=== PATIENT | male | born 1990 | race American Indian/Alaskan Native ===

== ENCOUNTER 2017-12-12 14:18 | Emergency (ER) | payer OTHER ==
[~2017-12-12] VITALS: Ht 170.2 cm; Wt 65.8 kg
[~2017-12-12 14:18] MED LIST: ALBU90OI INH; ALPR.25 PO; AMOCLA400 PO; AMOCLA500 PO; AZIT200SU PO; AZIT250 PO; CETI10 PO; CLAR250 PO; CLON.1 PO; CODACEE120 PO; CODGUAEL PO; CRUTCH4 USE; CYCL10 PO; DIPH50 PO; ERYT500 PO; HYDACE5 PO; HYDGUAL120 PO; IBUP200; IBUP600 PO; IBUP800 PO; Norco 5-325 Ta1 EACH PO; PROM25 PO; RXHYDACE PO; RXHYDGUAS PO; Ultram50 MG PO
[2017-12-12] MEDS ORDERED: CRUTCH4 XX (15:23)
[2017-12-12] MEDS ORDERED: Ultram50 MG PO (15:25)
[2017-12-12] MEDS ORDERED: IBUP800 PO (15:25)
== END 2017-12-12 15:34 | disposition home or self-care (01) ==
LOC: ER 14:18
DX: S93.401A Sprain of unspecified ligament of right ankle, initial encounter (principal); X50.9XXA Other and unspecified overexertion or strenuous movements or postures, initial encounter; Y99.0 Civilian activity done for income or pay; F17.200 Nicotine dependence, unspecified, uncomplicated
CPT/HCPCS: 29515; 73610; 73630; 99283; L1906

== ENCOUNTER 2019-02-09 09:53 | Emergency (ER) | payer OTHER ==
[~2019-02-09] VITALS: Ht 172.7 cm; Wt 63.5 kg
[~2019-02-09 09:53] MED LIST changes: +CRUTCH4 XX
[2019-02-09 10:55] LABS: Chloride (POC) 102 mmol/L (98-108); Creatinine (POC) 0.8 mg/dL (0.8-1.3); Glucose (ISTAT POC) 112 mg/dL (70-99); Potassium (POC) 4.2 mmol/L (3.5-5.5); Sodium (POC) 140 mmol/L (135-148); Total CO2 (POC) 26 mmol/L (21-32)
== END 2019-02-09 11:15 | disposition home or self-care (01) ==
LOC: ER 09:53
PROVIDERS: Physician Assistant
DX: R55 Syncope and collapse (principal); F17.200 Nicotine dependence, unspecified, uncomplicated
CPT/HCPCS: 80047; 85014; 99283

== ENCOUNTER 2019-02-18 21:58 | Emergency (ER) | payer OTHER ==
[~2019-02-18] VITALS: Ht 170.2 cm; Wt 65.8 kg
[2019-02-18] MEDS ORDERED: IBU800 MG PO (23:23)
[2019-02-18] MEDS ORDERED: HYDR1TAB94 PO (23:23)
== END 2019-02-19 00:02 | disposition home or self-care (01) ==
LOC: ER 21:58
DX: S52.121A Displaced fracture of head of right radius, initial encounter for closed fracture (principal); W19.XXXA Unspecified fall, initial encounter; F17.200 Nicotine dependence, unspecified, uncomplicated
CPT/HCPCS: 29125; 73090; 99283-25; A9270

== ENCOUNTER 2020-06-10 22:32 | Emergency (ER) | payer OTHER ==
[~2020-06-10] VITALS: Ht 172.7 cm; Wt 63.5 kg
[~2020-06-10 22:32] MED LIST changes: +HYDR1TAB94 PO; +IBU800 MG PO
== END 2020-06-10 23:59 | disposition home or self-care (01) ==
LOC: ER 22:32
DX: S61.215A Laceration without foreign body of left ring finger without damage to nail, initial encounter (principal); F17.200 Nicotine dependence, unspecified, uncomplicated; W31.9XXA Contact with unspecified machinery, initial encounter; Y92.89 Other specified places as the place of occurrence of the external cause; Y99.0 Civilian activity done for income or pay
CPT/HCPCS: 12001; 73120; 90471; 90714; 99283-25

== ENCOUNTER 2021-02-02 18:58 | Inpatient (IN) | payer OTHER ==
[~2021-02-02] VITALS: Ht 172.7 cm; Wt 63.8 kg
[2021-02-02 19:51] LABS: BASOPHILS ABSOLUTE AUTO 0.03 K/mm3 (0.00-0.23); BASOPHILS PERCENT AUTO 0 % (0-2); EOSINOPHILS ABSOLUTE AUTO 0.01 K/mm3 (0.00-0.68); EOSINOPHILS PERCENT AUTO 0 % (0-6); Hematocrit 35.1 % (37.0-53.0); Hemoglobin 12.5 g/dL (13.5-17.5); IMMATURE GRAN ABSOLUTE AUTO 0.02 K/mm3 (0.00-0.10); IMMATURE GRAN PERCENT AUTO 0 % (0-1); LYMPHOCYTES ABSOLUTE AUTO 1.24 K/mm3 (0.84-5.20); LYMPHOCYTES PERCENT AUTO 16 % (21-46); MONOCYTES ABSOLUTE AUTO 0.45 K/mm3 (0.16-1.47); MONOCYTES PERCENT AUTO 6 % (4-13); Mean Corpuscular HGB 31.5 pg (26.0-34.0); Mean Corpuscular HGB Conc 35.6 g/dL (31.5-36.5); Mean Corpuscular Volume 88 fL (80-100); Mean Platelet Volume 10.1 fL (9.1-12.4); NEUTROPHILS ABSOLUTE AUTO 5.87 K/mm3 (1.96-9.15); NEUTROPHILS PERCENT AUTO 77 % (41-73); Platelet Count 85 K/mm3 (150-400); RDW Coefficient Variation 14.5 % (11.7-14.2); RDW Standard Deviation 46.5 fL (35.1-46.3); Red Blood Cell Count 3.97 M/mm3 (4.30-5.90); White Blood Cell Count 7.62 K/mm3 (4.00-11.30)
[2021-02-02 20:14] LABS: Alanine Aminotransfer (ALT/SGP 86 U/L (12-78); Albumin/Globulin Ratio 0.9 (0.8-1.8); Alk Phos 112 U/L (50-136); Anion Gap 13 mmol/L (6-16); Aspartate Aminotrans (AST/SGOT 141 U/L (12-37); Bilirubin, Total 1.8 mg/dL (0.1-1.0); Blood Urea Nitrogen 26 mg/dL (8-24); Bun/Creatinine Ratio 53.1 (12.0-20.0); CO2, Blood 20 mmol/L (21-32); Calcium, Blood 9.1 mg/dL (8.5-10.1); Chloride, Blood 106 mmol/L (98-108); Creatinine, Blood 0.49 mg/dL (0.60-1.20); Globulin, Blood 4.6 g/dL (2.2-4.0); Glomerular Filtration Rate >60 (60-); Glucose, Blood 144 mg/dL (70-99); Sodium, Blood 139 mmol/L (136-145); Total Protein, Blood 8.6 g/dL (6.4-8.2)
[2021-02-02] MEDS ORDERED: BUPRENORPHIN-N1 EAC1 SL (20:14)
[2021-02-03 05:59] LABS: BASOPHILS ABSOLUTE AUTO 0.04 K/mm3 (0.00-0.23); BASOPHILS PERCENT AUTO 1 % (0-2); EOSINOPHILS ABSOLUTE AUTO 0.03 K/mm3 (0.00-0.68); EOSINOPHILS PERCENT AUTO 0 % (0-6); Hematocrit 29.4 % (37.0-53.0); Hemoglobin 10.3 g/dL (13.5-17.5); IMMATURE GRAN ABSOLUTE AUTO 0.02 K/mm3 (0.00-0.10); IMMATURE GRAN PERCENT AUTO 0 % (0-1); LYMPHOCYTES ABSOLUTE AUTO 2.36 K/mm3 (0.84-5.20); LYMPHOCYTES PERCENT AUTO 27 % (21-46); MONOCYTES ABSOLUTE AUTO 0.69 K/mm3 (0.16-1.47); MONOCYTES PERCENT AUTO 8 % (4-13); Mean Corpuscular HGB 31.7 pg (26.0-34.0); Mean Corpuscular Volume 91 fL (80-100); Mean Platelet Volume 10.7 fL (9.1-12.4); NEUTROPHILS PERCENT AUTO 64 % (41-73); Platelet Count 72 K/mm3 (150-400); RDW Coefficient Variation 14.7 % (11.7-14.2); RDW Standard Deviation 48.5 fL (35.1-46.3); Red Blood Cell Count 3.25 M/mm3 (4.30-5.90); White Blood Cell Count 8.64 K/mm3 (4.00-11.30)
[2021-02-03 06:18] LABS: Anion Gap 8 mmol/L (6-16); Blood Urea Nitrogen 24 mg/dL (8-24); Bun/Creatinine Ratio 34.7 (12.0-20.0); CO2, Blood 24 mmol/L (21-32); Calcium, Blood 8.1 mg/dL (8.5-10.1); Chloride, Blood 107 mmol/L (98-108); Creatinine, Blood 0.69 mg/dL (0.60-1.20); Glomerular Filtration Rate >60 (60-); Glucose, Blood 126 mg/dL (70-99); Potassium, Blood 4.1 mmol/L (3.5-5.5); Sodium, Blood 139 mmol/L (136-145)
[2021-02-03 12:01] LABS: Hemoglobin 10.1 g/dL (13.5-17.5)
--- NOTE | 2021-02-03 14:28 | NUR ---
PT HERE FROM ER VIA [facility] WITH OTHER RN Madeline. History, Chart, Medications and Allergies reviewed before start of procedure.Lungs clear T/O to Auscultation. Patient confirms NPO status and agrees with scheduled surgery. Pre-Op teaching done. Pt verbalizes understanding.
[2021-02-03 14:38] LABS: SARS-Cov-2 (COVID-19) PCR, MMC NEGATIVE (NEGATIVE)
--- NOTE | 2021-02-03 15:24 | NUR ---
02/03/21 1524 Patricio Merrill History, Chart, Medications and Allergies reviewed before start of procedure. MONITOR INTACT WITH CONTINUOUS PULSE OXIMETRY AND INTERMITTENT BP. 3-LEAD EKG REVIEWED WITH PHYSICIAN PRIOR TO START OF PROCEDURE. O2 VIA N/C INTACT THROUGHOUT SEDATION/PROCEDURE. Bite Block Placed. PATIENT DETERMINED TO BE ASA APPROPRIATE FOR PROPOFOL SEDATION PRIOR TO START OF PROCEDURE BY DR. BROWN
[2021-02-03 18:46] LABS: International Normalized Ratio 1.37; Prothrombin Time Results 14.5 Sec (9.7-11.5)
--- NOTE | 2021-02-03 18:48 | NUR ---
ADMISSION/SHIFT SUMMARY PT ARRIVED TO PCU FOLLOWING UPPER GI SCOPE WITH DR. BROWN THIS AFTERNOON. THERE WAS VARICIES (NON-BLEEDING) AND INFLAMMATION, REDNESS, IRRITATION, DIALATED VEINS AND CIRRHOSIS FOUND AT THE STOMACH AND DUODENUM WHICH IS WHAT CAUSED THE BLOODY EMESIS. PT WAS SWAPPED FROM IV PROTONIX AND THE SANDOSTATIN WAS DC'D AFTER THE SCOPE. PT STATES HIS LAST DRINK WAS 3 DAYS AGO, HE HAS BEENS STRONGLY ENCOURAGED TO QUIT AND EDUCATED ON THE DANGERS IF HE WERE TO CONTINUE DRINKING; PT GAVE VERBAL UNDERSTANDING TO BOTH THE RN AND THE DR THAT HE WAS DONE, HE DOES NOT WANT TO CONTINUE DOWN THIS ROAD. PT DOES HAVE SOME CIRRHOSIS "SPIDERS" SMALL RED SPOTS ALONG THE NECK, CLAVICAL AND CHEST WELL JAUNDICE. PT IS ALERT AND ORIENTED BUT A BIT GROGGY FROM THE PROCEDURE. PT DENIES PAIN AT THIS TIME. PT IS RESTING IN BED FINISHING HIS DINNER
[2021-02-04 04:20] LABS: BASOPHILS ABSOLUTE AUTO 0.02 K/mm3 (0.00-0.23); BASOPHILS PERCENT AUTO 0 % (0-2); EOSINOPHILS ABSOLUTE AUTO 0.15 K/mm3 (0.00-0.68); EOSINOPHILS PERCENT AUTO 2 % (0-6); Hemoglobin 9.9 g/dL (13.5-17.5); IMMATURE GRAN ABSOLUTE AUTO 0.01 K/mm3 (0.00-0.10); IMMATURE GRAN PERCENT AUTO 0 % (0-1); LYMPHOCYTES ABSOLUTE AUTO 2.42 K/mm3 (0.84-5.20); LYMPHOCYTES PERCENT AUTO 37 % (21-46); MONOCYTES ABSOLUTE AUTO 0.47 K/mm3 (0.16-1.47); MONOCYTES PERCENT AUTO 7 % (4-13); Mean Corpuscular HGB 31.8 pg (26.0-34.0); Mean Corpuscular HGB Conc 35.4 g/dL (31.5-36.5); Mean Corpuscular Volume 90 fL (80-100); Mean Platelet Volume 10.5 fL (9.1-12.4); NEUTROPHILS PERCENT AUTO 53 % (41-73); Platelet Count 65 K/mm3 (150-400); RDW Coefficient Variation 14.5 % (11.7-14.2); RDW Standard Deviation 47.1 fL (35.1-46.3); Red Blood Cell Count 3.11 M/mm3 (4.30-5.90); White Blood Cell Count 6.47 K/mm3 (4.00-11.30)
[2021-02-04 04:46] LABS: Alanine Aminotransfer (ALT/SGP 67 U/L (12-78); Albumin, Blood 3.1 g/dL (3.4-5.0); Albumin/Globulin Ratio 0.9 (0.8-1.8); Alk Phos 77 U/L (50-136); Anion Gap 5 mmol/L (6-16); Aspartate Aminotrans (AST/SGOT 126 U/L (12-37); Blood Urea Nitrogen 19 mg/dL (8-24); Bun/Creatinine Ratio 23.1 (12.0-20.0); CO2, Blood 27 mmol/L (21-32); Calcium, Blood 7.6 mg/dL (8.5-10.1); Chloride, Blood 106 mmol/L (98-108); Creatinine, Blood 0.82 mg/dL (0.60-1.20); Globulin, Blood 3.6 g/dL (2.2-4.0); Glomerular Filtration Rate >60 (60-); Glucose, Blood 96 mg/dL (70-99); Potassium, Blood 3.6 mmol/L (3.5-5.5); Sodium, Blood 138 mmol/L (136-145); Total Protein, Blood 6.7 g/dL (6.4-8.2)
--- NOTE | 2021-02-04 05:25 | NUR ---
SHIFT SUMMARY PT A&OX4. SP02>92% ON RA. TELEMETRY READS SB/SR, HR 50'S-60'S. PT C/O OF "DREAMING ABOUT BEING IN A HOSPITAL, CEASING, NOT ABLE TO HIT THE CALL LIGHT." PT STATES, "IT FEELS SO REAL BUT ITS JUST A DREAM." MEDICATED W/ LIBRIUM PER EMAR X1. PT C/O OF 5/10 ABD PAIN. MEDICATED W/ FENTANYL PER EMAR X1. PT AMBULATED W/ ASSISTANCE TO BATHROOM TO VOID THIS SHIFT. ABX INFUSED PER EMAR. CALL LIGHT IN REACH. WILL GIVE REPORT TO ONCOMING NURSE.
[2021-02-04] MEDS ORDERED: CIPR500 PO (11:34)
[2021-02-04] MEDS ORDERED: PANT40 PO (11:35)
--- NOTE | 2021-02-04 13:44 | NUR ---
NO ACUTE EVENTS THIS SHIFT, VSS. PT IS ALERT AND ORIENTED, COOPERATIVE WITH CARE AND DENIES PAIN AND NAUSEA. PATIENT PROVIDED DISCHARGE INFO REGARDING FOLLOW UP PLANS, REASONS TO RETURN TO THE HOSPITAL, AND MEDICATION INFORMATION. PATIENT VERBALIZED UNDERSTANDING. NO SIGNS OF ACUTE DISTRESS.
== END 2021-02-04 14:39 | disposition home or self-care (01) | DRG 441 ==
LOC: ER 18:58 → ERHOLD 18:59 → PCU 18:59
PROVIDERS: Internal Medicine Gastroenterology; Physician Assistant; ADMIT Family Medicine
PROC: 06L38CZ Occlusion of Esophageal Vein with Extraluminal Device, Via Natural or Artificial Opening Endoscopic (ICD-10-PCS; principal; 2021-02-04)
DX: K76.6 Portal hypertension (principal); I85.11 Secondary esophageal varices with bleeding; D62 Acute posthemorrhagic anemia; Z20.822 Contact with and (suspected) exposure to COVID-19; F10.10 Alcohol abuse, uncomplicated; K31.89 Other diseases of stomach and duodenum; D69.6 Thrombocytopenia, unspecified; B19.20 Unspecified viral hepatitis C without hepatic coma; Z98.890 Other specified postprocedural states; Z79.899 Other long term (current) drug therapy; F17.210 Nicotine dependence, cigarettes, uncomplicated; K74.60 Unspecified cirrhosis of liver
CPT/HCPCS: 36415; 74177; 80048; 80053; 82105; 83690; 85014; 85018; 85025; 85610; 86850; 86900; 86901; 96365; 96366; 96367; 96368; 96375; 96376; 99285-25; A9270; C9113; G0378; J0696; J2250; J2270; J2354; J2405; J2704; J3010; J7050; J7120; Q9967; U0004

== ENCOUNTER 2021-06-15 20:13 | Emergency (ER) | payer OTHER ==
[~2021-06-15] VITALS: Ht 167.6 cm; Wt 68.0 kg
[~2021-06-15 20:13] MED LIST changes: +BUPRENORPHIN-N1 EAC1 SL; +CIPR500 PO; +PANT40 PO
[2021-06-15 20:48] LABS: BASOPHILS ABSOLUTE AUTO 0.04 K/mm3 (0.00-0.23); BASOPHILS PERCENT AUTO 1 % (0-2); EOSINOPHILS ABSOLUTE AUTO 0.04 K/mm3 (0.00-0.68); EOSINOPHILS PERCENT AUTO 1 % (0-6); Hematocrit 45.1 % (37.0-53.0); IMMATURE GRAN ABSOLUTE AUTO 0.01 K/mm3 (0.00-0.10); IMMATURE GRAN PERCENT AUTO 0 % (0-1); LYMPHOCYTES ABSOLUTE AUTO 2.54 K/mm3 (0.84-5.20); LYMPHOCYTES PERCENT AUTO 32 % (21-46); MONOCYTES ABSOLUTE AUTO 0.65 K/mm3 (0.16-1.47); MONOCYTES PERCENT AUTO 8 % (4-13); Mean Corpuscular HGB Conc 35.5 g/dL (31.5-36.5); Mean Corpuscular Volume 79 fL (80-100); Mean Platelet Volume 9.3 fL (9.1-12.4); NEUTROPHILS ABSOLUTE AUTO 4.63 K/mm3 (1.96-9.15); NEUTROPHILS PERCENT AUTO 59 % (41-73); Platelet Count 123 K/mm3 (150-400); RDW Standard Deviation 47.7 fL (35.1-46.3); Red Blood Cell Count 5.71 M/mm3 (4.30-5.90); White Blood Cell Count 7.91 K/mm3 (4.00-11.30)
[2021-06-15] MEDS ORDERED: BUPRENORPHIN-N1 EAC5 SL (21:02)
[2021-06-15 21:12] LABS: Alanine Aminotransfer (ALT/SGP 76 U/L (12-78); Albumin, Blood 4.3 g/dL (3.4-5.0); Alk Phos 135 U/L (50-136); Anion Gap 15 mmol/L (6-16); Aspartate Aminotrans (AST/SGOT 80 U/L (12-37); Bilirubin, Total 0.3 mg/dL (0.1-1.0); Blood Urea Nitrogen 10 mg/dL (8-24); Bun/Creatinine Ratio 13.5 (12.0-20.0); CO2, Blood 22 mmol/L (21-32); Calcium, Blood 9.8 mg/dL (8.5-10.1); Chloride, Blood 109 mmol/L (98-108); Creatinine, Blood 0.74 mg/dL (0.60-1.20); Globulin, Blood 4.5 g/dL (2.2-4.0); Glomerular Filtration Rate >60 (60-); Glucose, Blood 109 mg/dL (70-99); Potassium, Blood 3.7 mmol/L (3.5-5.5); Sodium, Blood 146 mmol/L (136-145); Total Protein, Blood 8.8 g/dL (6.4-8.2)
[2021-06-15] MEDS ORDERED: CHLO25 PO (23:47)
== END 2021-06-16 00:55 | disposition home or self-care (01) ==
LOC: ER 20:13
PROVIDERS: Physician Assistant
DX: F10.239 Alcohol dependence with withdrawal, unspecified (principal); F11.23 Opioid dependence with withdrawal; F41.9 Anxiety disorder, unspecified; F17.210 Nicotine dependence, cigarettes, uncomplicated
CPT/HCPCS: 36415; 80053; 83690; 85025; 93005; 93010; 96374; 96375; 99285-25; A9270; J0572; J1885; J2405

== ENCOUNTER 2021-07-22 22:13 | Emergency (ER) | payer OTHER ==
[~2021-07-22] VITALS: Ht 170.2 cm; Wt 65.8 kg
[~2021-07-22 22:13] MED LIST changes: +BUPRENORPHIN-N1 EAC5 SL; +CHLO25 PO
[2021-07-22 23:28] LABS: Influenza A, PCR NEGATIVE (NEGATIVE); Influenza B, PCR NEGATIVE (NEGATIVE); Resp Syncytial Virus, PCR NEGATIVE (NEGATIVE); SARS-Cov-2 (COVID-19) PCR, MMC NEGATIVE (NEGATIVE)
[2021-07-23] MEDS ORDERED: Chlordiazepoxid25 MG PO (22:33)
[2021-07-23] MEDS ORDERED: CHLO25 PO (23:49)
== END 2021-07-23 00:45 | disposition home or self-care (01) ==
LOC: ER 22:13
PROVIDERS: Physician Assistant
DX: Z20.822 Contact with and (suspected) exposure to COVID-19 (principal); F17.210 Nicotine dependence, cigarettes, uncomplicated
CPT/HCPCS: 0241U; 99283

== ENCOUNTER 2021-07-23 22:20 | Emergency (ER) | payer OTHER ==
[~2021-07-23] VITALS: Ht 170.2 cm; Wt 63.5 kg
[2021-07-23] MEDS ORDERED: Chlordiazepoxid25 MG PO (22:33)
[2021-07-23 22:46] LABS: BASOPHILS ABSOLUTE AUTO 0.06 K/mm3 (0.00-0.23); BASOPHILS PERCENT AUTO 1 % (0-2); EOSINOPHILS ABSOLUTE AUTO 0.19 K/mm3 (0.00-0.68); EOSINOPHILS PERCENT AUTO 2 % (0-6); Hematocrit 38.7 % (37.0-53.0); Hemoglobin 13.1 g/dL (13.5-17.5); IMMATURE GRAN ABSOLUTE AUTO 0.03 K/mm3 (0.00-0.10); IMMATURE GRAN PERCENT AUTO 0 % (0-1); LYMPHOCYTES ABSOLUTE AUTO 4.02 K/mm3 (0.84-5.20); LYMPHOCYTES PERCENT AUTO 45 % (21-46); MONOCYTES ABSOLUTE AUTO 0.85 K/mm3 (0.16-1.47); MONOCYTES PERCENT AUTO 10 % (4-13); Mean Corpuscular HGB 27.9 pg (26.0-34.0); Mean Corpuscular HGB Conc 33.9 g/dL (31.5-36.5); Mean Corpuscular Volume 83 fL (80-100); Mean Platelet Volume 9.7 fL (9.1-12.4); NEUTROPHILS PERCENT AUTO 43 % (41-73); Platelet Count 181 K/mm3 (150-400); RDW Coefficient Variation 16.8 % (11.7-14.2); RDW Standard Deviation 50.4 fL (35.1-46.3); Red Blood Cell Count 4.69 M/mm3 (4.30-5.90); White Blood Cell Count 8.95 K/mm3 (4.00-11.30)
[2021-07-23 23:05] LABS: Alanine Aminotransfer (ALT/SGP 142 U/L (12-78); Albumin, Blood 4.1 g/dL (3.4-5.0); Albumin/Globulin Ratio 0.9 (0.8-1.8); Alk Phos 165 U/L (50-136); Anion Gap 9 mmol/L (6-16); Aspartate Aminotrans (AST/SGOT 210 U/L (12-37); Bilirubin, Total 0.6 mg/dL (0.1-1.0); Blood Urea Nitrogen 10 mg/dL (8-24); Bun/Creatinine Ratio 14.8 (12.0-20.0); CO2, Blood 24 mmol/L (21-32); Calcium, Blood 8.4 mg/dL (8.5-10.1); Chloride, Blood 111 mmol/L (98-108); Creatinine, Blood 0.68 mg/dL (0.60-1.20); Globulin, Blood 4.4 g/dL (2.2-4.0); Glomerular Filtration Rate >60 (60-); Glucose, Blood 116 mg/dL (70-99); Potassium, Blood 3.6 mmol/L (3.5-5.5); Sodium, Blood 144 mmol/L (136-145); Total Protein, Blood 8.5 g/dL (6.4-8.2); Troponin I <0.015 ng/mL (0.000-0.040)
[2021-07-23] MEDS ORDERED: CHLO25 PO (23:49)
== END 2021-07-24 00:34 | disposition home or self-care (01) ==
LOC: ER 22:20
PROVIDERS: Student in an Organized Health Care Education/Training Program
DX: F41.9 Anxiety disorder, unspecified (principal); M25.511 Pain in right shoulder; F10.10 Alcohol abuse, uncomplicated; F17.210 Nicotine dependence, cigarettes, uncomplicated
CPT/HCPCS: 71045; 73030; 80053; 84484; 85025; 93005; 93010; 99285-25; A9270

== ENCOUNTER 2021-08-16 09:50 | Emergency (ER) | payer OTHER ==
[~2021-08-16] VITALS: Ht 170.2 cm; Wt 66.2 kg
[~2021-08-16 09:50] MED LIST changes: +CEPH500 PO; +Chlordiazepoxid25 MG PO
== END 2021-08-16 11:30 | disposition home or self-care (01) ==
LOC: ER 09:50
DX: S61.211D Laceration without foreign body of left index finger without damage to nail, subsequent encounter (principal); F17.210 Nicotine dependence, cigarettes, uncomplicated; Z79.2 Long term (current) use of antibiotics; Z79.899 Other long term (current) drug therapy
CPT/HCPCS: 99282

== ENCOUNTER 2021-09-18 01:32 | Emergency (ER) | payer OTHER ==
[~2021-09-18] VITALS: Ht 170.2 cm; Wt 63.0 kg
[2021-09-18] MEDS ORDERED: BUPRENORPHINE HC8 MG SL (01:54)
[2021-12-30] MEDS ORDERED: ACAMPROSATE CA333 MG PO (23:47)
[2021-12-30] MEDS ORDERED: GABA100 PO (23:48)
== END 2021-09-18 03:50 | disposition home or self-care (01) ==
LOC: ER 01:32
DX: F41.9 Anxiety disorder, unspecified (principal); F17.210 Nicotine dependence, cigarettes, uncomplicated
CPT/HCPCS: 93005; 93010; 99284-25

== ENCOUNTER 2021-12-25 22:34 | Emergency (ER) | payer OTHER ==
[~2021-12-25] VITALS: Ht 167.6 cm; Wt 59.0 kg
[~2021-12-25 22:34] MED LIST changes: +BUPRENORPHINE HC8 MG SL
== END 2021-12-26 01:21 | disposition home or self-care (01) ==
LOC: ER 22:34
DX: S60.221A Contusion of right hand, initial encounter (principal); F17.210 Nicotine dependence, cigarettes, uncomplicated; W23.0XXA Caught, crushed, jammed, or pinched between moving objects, initial encounter
CPT/HCPCS: 73130; A9270

== ENCOUNTER 2022-02-26 08:44 | Emergency (ER) | payer OTHER ==
[~2022-02-26] VITALS: Ht 170.2 cm; Wt 65.8 kg
[~2022-02-26 08:44] MED LIST changes: +ACAMPROSATE CA333 MG PO; +GABA100 PO
[2022-02-26 09:49] LABS: BASOPHILS ABSOLUTE AUTO 0.08 K/mm3 (0.00-0.23); BASOPHILS PERCENT AUTO 1 % (0-2); EOSINOPHILS PERCENT AUTO 2 % (0-6); Hematocrit 34.5 % (37.0-53.0); IMMATURE GRAN ABSOLUTE AUTO 0.02 K/mm3 (0.00-0.10); IMMATURE GRAN PERCENT AUTO 0 % (0-1); LYMPHOCYTES ABSOLUTE AUTO 3.44 K/mm3 (0.84-5.20); LYMPHOCYTES PERCENT AUTO 39 % (21-46); MONOCYTES PERCENT AUTO 8 % (4-13); Mean Corpuscular HGB 30.2 pg (26.0-34.0); Mean Corpuscular HGB Conc 34.8 g/dL (31.5-36.5); Mean Corpuscular Volume 87 fL (80-100); Mean Platelet Volume 9.8 fL (9.1-12.4); NEUTROPHILS ABSOLUTE AUTO 4.29 K/mm3 (1.96-9.15); NEUTROPHILS PERCENT AUTO 49 % (41-73); Platelet Count 114 K/mm3 (150-400); RDW Coefficient Variation 15.6 % (11.7-14.2); RDW Standard Deviation 49.3 fL (35.1-46.3); Red Blood Cell Count 3.98 M/mm3 (4.30-5.90); White Blood Cell Count 8.73 K/mm3 (4.00-11.30)
[2022-02-26 09:59] LABS: Albumin, Blood 3.7 g/dL (3.4-5.0); Albumin/Globulin Ratio 0.9 (0.8-1.8); Bun/Creatinine Ratio 39.3 (12.0-20.0); Calcium, Blood 8.4 mg/dL (8.5-10.1); Creatinine, Blood 0.66 mg/dL (0.60-1.20); Globulin, Blood 4.3 g/dL (2.2-4.0); Potassium, Blood 3.3 mmol/L (3.5-5.5)
[2022-02-26 10:50] LABS: International Normalized Ratio 1.37; Prothrombin Time Results 14.1 Sec (9.7-11.5)
[2022-02-26 15:04] LABS: Hematocrit 29.1 % (37.0-53.0); Hemoglobin 10.2 g/dL (13.5-17.5)
== END 2022-02-26 16:43 | disposition home or self-care (01) ==
LOC: ER 08:44
PROVIDERS: Emergency Medicine
DX: K92.2 Gastrointestinal hemorrhage, unspecified (principal); F17.210 Nicotine dependence, cigarettes, uncomplicated
CPT/HCPCS: 80053; 83690; 85014; 85018; 85025; 85610; 85730; 86850; 86900; 86901; C9113; G0480; J0696; J1170; J2354; J2405; J2550; J7030; J7050

== ENCOUNTER 2022-05-03 22:12 | Emergency (ER) | payer OTHER ==
[~2022-05-03] VITALS: Ht 170.2 cm; Wt 63.0 kg
== END 2022-05-04 00:15 | disposition home or self-care (01) ==
LOC: ER 22:12
DX: M79.641 Pain in right hand (principal); M79.642 Pain in left hand; F17.210 Nicotine dependence, cigarettes, uncomplicated; Z79.899 Other long term (current) drug therapy; W22.8XXA Striking against or struck by other objects, initial encounter
CPT/HCPCS: 73120

== ENCOUNTER 2022-05-12 15:17 | Emergency (ER) | payer OTHER ==
[~2022-05-12] VITALS: Ht 170.2 cm; Wt 62.6 kg
[2022-05-12 16:15] LABS: BASOPHILS ABSOLUTE AUTO 0.05 K/mm3 (0.00-0.23); BASOPHILS PERCENT AUTO 1 % (0-2); EOSINOPHILS PERCENT AUTO 1 % (0-6); Hematocrit 21.8 % (37.0-53.0); Hemoglobin 6.7 g/dL (13.5-17.5); IMMATURE GRAN ABSOLUTE AUTO 0.09 K/mm3 (0.00-0.10); IMMATURE GRAN PERCENT AUTO 1 % (0-1); LYMPHOCYTES ABSOLUTE AUTO 1.56 K/mm3 (0.84-5.20); LYMPHOCYTES PERCENT AUTO 23 % (21-46); MONOCYTES ABSOLUTE AUTO 0.81 K/mm3 (0.16-1.47); MONOCYTES PERCENT AUTO 12 % (4-13); Mean Corpuscular HGB 21.1 pg (26.0-34.0); Mean Corpuscular HGB Conc 30.7 g/dL (31.5-36.5); Mean Corpuscular Volume 69 fL (80-100); NEUTROPHILS PERCENT AUTO 62 % (41-73); NRBC ABSOLUTE 0.02 K/mm3 (0.00-0.02); NRBC Auto 0.3 /100 WBC (0.0-0.2); Platelet Count 102 K/mm3 (150-400); RDW Standard Deviation 63.2 fL (35.1-46.3); Red Blood Cell Count 3.18 M/mm3 (4.30-5.90); White Blood Cell Count 6.91 K/mm3 (4.00-11.30)
[2022-05-12 16:34] LABS: Albumin, Blood 3.5 g/dL (3.4-5.0); Albumin/Globulin Ratio 0.7 (0.8-1.8); Bun/Creatinine Ratio 48.5 (12.0-20.0); Creatinine, Blood 0.41 mg/dL (0.60-1.20); Globulin, Blood 4.7 g/dL (2.2-4.0); Potassium, Blood 3.8 mmol/L (3.5-5.5); Total Protein, Blood 8.2 g/dL (6.4-8.2)
[2022-05-12 19:22] LABS: Influenza A, PCR NEGATIVE (NEGATIVE); Influenza B, PCR NEGATIVE (NEGATIVE); Resp Syncytial Virus, PCR NEGATIVE (NEGATIVE); SARS-Cov-2 (COVID-19) PCR, MMC NEGATIVE (NEGATIVE)
[2022-05-12 20:24] LABS: International Normalized Ratio 1.43; Prothrombin Time Results 14.7 Sec (9.7-11.5)
== END 2022-05-12 22:19 | disposition short-term general hospital (02) ==
LOC: ER 15:17
PROVIDERS: Physician Assistant Medical; Student in an Organized Health Care Education/Training Program
DX: K92.0 Hematemesis (principal); D64.9 Anemia, unspecified; F17.210 Nicotine dependence, cigarettes, uncomplicated; Z20.822 Contact with and (suspected) exposure to COVID-19
CPT/HCPCS: 0241U; 36415; 74022; 74177; 80053; 83690; 84484; 85025; 85610; 85730; 86850; 86900; 86901; 86923; 93005; 93010; C9113; J0696; J1170; J2060; J2354; J2405; J2550; J7030; J7050; P9016; Q9967

== ENCOUNTER 2022-07-01 01:49 | Inpatient (IN) | payer OTHER ==
[~2022-07-01] VITALS: Ht 170.2 cm; Wt 60.6 kg
[2022-07-01] MEDS ORDERED: BUPRENORPHIN-N1 EAC1 SL (02:04)
[2022-07-01 02:31] LABS: BASOPHILS ABSOLUTE AUTO 0.06 K/mm3 (0.00-0.23); BASOPHILS PERCENT AUTO 1 % (0-2); EOSINOPHILS ABSOLUTE AUTO 0.08 K/mm3 (0.00-0.68); EOSINOPHILS PERCENT AUTO 1 % (0-6); Hematocrit 26.1 % (37.0-53.0); Hemoglobin 8.9 g/dL (13.5-17.5); IMMATURE GRAN ABSOLUTE AUTO 0.02 K/mm3 (0.00-0.10); IMMATURE GRAN PERCENT AUTO 0 % (0-1); LYMPHOCYTES ABSOLUTE AUTO 2.56 K/mm3 (0.84-5.20); LYMPHOCYTES PERCENT AUTO 32 % (21-46); MONOCYTES ABSOLUTE AUTO 0.73 K/mm3 (0.16-1.47); MONOCYTES PERCENT AUTO 9 % (4-13); Mean Corpuscular HGB 24.1 pg (26.0-34.0); Mean Corpuscular HGB Conc 34.1 g/dL (31.5-36.5); Mean Corpuscular Volume 71 fL (80-100); Mean Platelet Volume 9.2 fL (9.1-12.4); NEUTROPHILS ABSOLUTE AUTO 4.66 K/mm3 (1.96-9.15); NEUTROPHILS PERCENT AUTO 58 % (41-73); Platelet Count 145 K/mm3 (150-400); RDW Coefficient Variation 18.6 % (11.7-14.2); RDW Standard Deviation 47.2 fL (35.1-46.3); White Blood Cell Count 8.11 K/mm3 (4.00-11.30)
[2022-07-01 02:43] LABS: Albumin, Blood 2.9 g/dL (3.4-5.0); Albumin/Globulin Ratio 0.6 (0.8-1.8); Bilirubin, Total 0.8 mg/dL (0.1-1.0); Bun/Creatinine Ratio 24.4 (12.0-20.0); Calcium, Blood 8.5 mg/dL (8.5-10.1); Creatinine, Blood 0.57 mg/dL (0.60-1.20); Globulin, Blood 4.7 g/dL (2.2-4.0); Potassium, Blood 3.8 mmol/L (3.5-5.5); Total Protein, Blood 7.6 g/dL (6.4-8.2)
[2022-07-01 03:36] LABS: International Normalized Ratio 1.4; Prothrombin Time Results 14.4 Sec (9.7-11.5)
[2022-07-01 07:07] LABS: Influenza A, PCR NEGATIVE (NEGATIVE); Influenza B, PCR NEGATIVE (NEGATIVE); Resp Syncytial Virus, PCR NEGATIVE (NEGATIVE); SARS-Cov-2 (COVID-19) PCR, MMC NEGATIVE (NEGATIVE)
[2022-07-01 07:20] LABS: Hematocrit 21.6 % (37.0-53.0); Hemoglobin 7.1 g/dL (13.5-17.5); Mean Corpuscular HGB 23.7 pg (26.0-34.0); Mean Corpuscular HGB Conc 32.9 g/dL (31.5-36.5); Mean Corpuscular Volume 72 fL (80-100); Mean Platelet Volume 9.1 fL (9.1-12.4); Platelet Count 101 K/mm3 (150-400); RDW Coefficient Variation 18.8 % (11.7-14.2); RDW Standard Deviation 48.8 fL (35.1-46.3); Red Blood Cell Count 2.99 M/mm3 (4.30-5.90); White Blood Cell Count 6.04 K/mm3 (4.00-11.30)
[2022-07-01 10:56] LABS: Hematocrit 21.7 % (37.0-53.0); Hemoglobin 6.9 g/dL (13.5-17.5)
--- NOTE | 2022-07-01 10:57 | NUR ---
PT ARRIVED TO ICU BED 13, DENIES ANY ABDOMINAL PAIN, ILLICITS NAUSEA. GIRLFRIEND HAS BROUGHT IN A "TO GO" BAG TO GO WITH HIM WHEN TRANSPORTED TO OUT OF [facility]. AWAITING TRANSPORTATION ARRANGEMENT FOR CLEARING WEATHER. PT DRESSED IN JEANS AND SOCKS, SHOES REMOVED AND AT BEDSIDE. PT'S VITAL SIGNS STABLE, AWAIT CURRENT LAB RESULTS FOR FURTHER ORDERS. PLAN TO TRANSFUSE IF LEVEL LESS THAN 7 ON HGB. GIRLFRIEND AT BEDSIDE.
--- NOTE | 2022-07-01 11:45 | NUR ---
TRANSPORTATION UPDATE SPOKE WITH REACH DISPATCH - CURRENT PLAN IS TO RE-CHECK WEATHER AROUND 1500 TO SEE IF THERE IS IMPROVEMENT AND FLIGHT CAPABILITY.
--- NOTE | 2022-07-01 12:59 | NUR ---
PT'S LAB RETURNED LOW, CALL TO , ORDERS RECEIVED TO TRANSFUSE ONE UNIT OF PRBC'S, TRANSFUSING NOW, TOLERATING WELL. GIRLFRIEND ASSISTING IN REMOVING HIS PANTS FOR PLACEMENT OF SCD'S.
--- NOTE | 2022-07-01 13:45 | NUR ---
PT'S MOM IS HERE, SHE IS QUESTIONING ONCE STACIA GETS DISCHARGED FROM THE HOSPITAL IN [place], WHAT HAPPENS NEXT. SPOKE WITH THE CHARGE NURSE, VINCENT ALLEN, SHE RECOMMENDS THAT SHE CALL HIS HEALTH PLAN TO SEE WHAT OPTIONS THEY HAVE. SHE STATES THAT IT BEING GARRETT BUTTS THERE IS NO ONE ANSWERING THE PHONE, LISTENING.
--- NOTE | 2022-07-01 14:05 | NUR ---
PT'S MOM COMES OUT TO SAY THAT "HE SAYS HE CAN'T BREATHE". STACIA SAYS HIS THROAT IS "SWOLLEN" AND HE FEELS LIKE HE CAN'T BREATHE, ATTEMPTS TO ASSESS THE BACK OF THE THROAT, PT WITH EASY GAG, NO EVIDENCE OF SWELLING OR BLEEDING NOTED. CALLED FOR ORDERS FOR ADDITIONAL NAUSEA MEDICATION, ORDERS RECEIVED. WILL MEDICATE.
--- NOTE | 2022-07-01 16:49 | NUR ---
TRANSPORTATION UPDATE: REACH STILL UNABLE TO FLY. PLAN TO RE-ASSESS WEATHER AT 1900. [facility] READING SPECIALIST, YARON, NOTIFIED OF UPDATE.
[2022-07-01 16:59] LABS: Hematocrit 22.3 % (37.0-53.0); Hemoglobin 7.5 g/dL (13.5-17.5)
--- NOTE | 2022-07-01 17:38 | NUR ---
PT'S LABS CAME BACK IMPROVED ON HGB. PT'S MOTHER AT BEDSIDE. PT HAS BEEN SLEEPING THE ENTIRE SHIFT. HE CONTINUES ON PROTONIX AND OCTREOTIDE. PIV X 3, ONE UNIT PRBC'S GIVEN. EXPECT REPORT FROM TRANSPORT AROUND 1900 TO KNOW IF PT CAN BE TAKEN TO [place]. FAMILY AWARE. WILL CONTINUE TO MONITOR AND TREAT.
--- NOTE | 2022-07-01 17:58 | NUR ---
TRANSPORT UPDATE: REACH REMAINS UNABLE TO FLY DUE TO WEATHER - WILL REASSESS AT 2100. CONTACT MADE WITH [facility] WHO IS ASSESSING OPTIONS FOR TRANSFER. [facility] UPDATED.
--- NOTE | 2022-07-01 17:59 | NUR ---
UPDATE FROM TRANSPORT: THEY WILL REEVALUATE AT 2100, UNSURE IF THEY CAN FLY RIGHT NOW. VP [employer] REACHED OUT TO [facility] TO SEE IF THERE MAY BE OTHER OPTIONS. WILL UPDATE FAMILY.
--- NOTE | 2022-07-01 18:55 | NUR ---
PT'S FAMILY ANXIOUS ABOUT NOT HAVING ANY GI COVERAGE. EXPLAINED THE SITUATION AGAIN TO THEM. ENCOURAGING PATIENT TO REST AND TAKE A/N MEDS. PRONTONIX AND OCTREOTIDE INFUSING PER ORDERS. PT SLEEPING. NO FURTHER CHANGES.
--- NOTE | 2022-07-01 19:26 | NUR ---
ASSUMED CARE OF PT AT 1900. REPORT RECEIVED AT BEDSIDE. PT PRESENTS IN BED. NO S/S ACTIVE BLEEDING AT THIS TIME. PT MAKES EYE CONTACT BUT DOES NOT VERBALIZE AT THIS TIME. SOMEWHAT WITHDRAWN. WILL REVIEW CHART AND PLAN OF CARE FOR THIS PT. WILL MONITOR TRANSPORTATION.
--- NOTE | 2022-07-01 21:44 | NUR ---
TRANSPORT UPDATE: CALL TO REACH FOR UPDATE. FLIGHT DELAYS CONTINUE. NEXT CONSIDERATION AND UPDATE AT 0900 07-02-2022.
--- NOTE | 2022-07-01 22:11 | NUR ---
TRANSPORT UPDAT: [facility] UNABLE TO TRANSPORT PT THIS NIGHT. NEXT UPDATE IN MORNING.
[2022-07-02 04:37] LABS: BASOPHILS ABSOLUTE AUTO 0.03 K/mm3 (0.00-0.23); BASOPHILS PERCENT AUTO 1 % (0-2); EOSINOPHILS ABSOLUTE AUTO 0.13 K/mm3 (0.00-0.68); EOSINOPHILS PERCENT AUTO 3 % (0-6); Hematocrit 21.4 % (37.0-53.0); Hemoglobin 7.3 g/dL (13.5-17.5); IMMATURE GRAN ABSOLUTE AUTO 0.02 K/mm3 (0.00-0.10); IMMATURE GRAN PERCENT AUTO 0 % (0-1); LYMPHOCYTES ABSOLUTE AUTO 1.86 K/mm3 (0.84-5.20); LYMPHOCYTES PERCENT AUTO 36 % (21-46); MONOCYTES ABSOLUTE AUTO 0.47 K/mm3 (0.16-1.47); MONOCYTES PERCENT AUTO 9 % (4-13); Mean Corpuscular HGB 25.2 pg (26.0-34.0); Mean Corpuscular HGB Conc 34.1 g/dL (31.5-36.5); Mean Corpuscular Volume 74 fL (80-100); Mean Platelet Volume 8.9 fL (9.1-12.4); NEUTROPHILS ABSOLUTE AUTO 2.61 K/mm3 (1.96-9.15); NEUTROPHILS PERCENT AUTO 51 % (41-73); Platelet Count 78 K/mm3 (150-400); RDW Coefficient Variation 18.8 % (11.7-14.2); RDW Standard Deviation 50.4 fL (35.1-46.3); White Blood Cell Count 5.12 K/mm3 (4.00-11.30)
[2022-07-02 04:54] LABS: Albumin, Blood 2.4 g/dL (3.4-5.0); Albumin/Globulin Ratio 0.6 (0.8-1.8); Bilirubin, Total 1.4 mg/dL (0.1-1.0); Bun/Creatinine Ratio 22.8 (12.0-20.0); Calcium, Blood 7.8 mg/dL (8.5-10.1); Creatinine, Blood 0.75 mg/dL (0.60-1.20); Globulin, Blood 3.9 g/dL (2.2-4.0); Potassium, Blood 3.7 mmol/L (3.5-5.5); Total Protein, Blood 6.3 g/dL (6.4-8.2)
--- NOTE | 2022-07-02 06:51 | NUR ---
PT HAS BEEN UP TO TOILET SEVERAL TIMES THIS NIGHT. ONLY HAD BLOOD STOOL ONCE EARLIER IN NIGHT. PT HAD SOME DIZZINESS ON FIRST TIME TO COMMODE. SECOND TIME PT DENIED VERTIGO. CALL RECEIVED FROM [employer] WHICH INDICATED PT WAS NUMBER 2 ON FLIGHT WAIT. WILL RECEIVE UPDATE AFTER [employer]'S "CHANGE OF SHIFT". REPORT GIVEN TO ONCOMING BONNIE.
[2022-07-02 07:56] LABS: Hematocrit 21.5 % (37.0-53.0); Hemoglobin 7.2 g/dL (13.5-17.5)
--- NOTE | 2022-07-02 09:57 | NUR ---
STACIA IS MORE ENGAGING THIS AM, HE IS FEELING SLIGHTLY "CRAMPY" ALTHOUGH IMPROVED FROM YESTERDAY, AGREED TO ALLOW CLEAR LIQUIDS FOR NOW, ICE CHIPS GIVEN WITH GOOD RESULTS. HE HAD A VISIT FROM HIS SON THIS AM, ALSO MOM AND GIRLFRIEND ARE HERE AT BEDSIDE.
--- NOTE | 2022-07-02 10:45 | NUR ---
UPDATE: TRANSPORT CREW SAYS THEY CAN FLY OUT OF [place], MAKING ARRANGEMENTS TO GET PT TO [place] TO FLY OUT. FAMILY UPDATED. PT ABLE TO STAND AND MOBILIZE WITHOUT ASSISTANCE, SAYS HE FEELS LESS WEAK AND DIZZY. MOM STATES HE "LOOKS SO MUCH BETTER". FLOOR COVERER DOUBLING CHECKING PAPERWORK IS UP TO DATE FOR TRANS- [place].
--- NOTE | 2022-07-02 11:39 | NUR ---
AMBULANCE GROUND CREW HERE TO TAKE PATIENT TO [place] FOR [facility] TO [place]. MOM AND SISTER WERE IN ATTENDANCE WALKING OUT TO AMBULANCE. VSS, PT DENIES ANY WEAKNESS OR LIGHTHEADEDNESS. NO ACTIVE BLEEDING AT THIS TIME.
--- NOTE | 2022-07-02 11:59 | NUR ---
THIS NURSE SPOKE WITH MIKE,MACHINE PACKAGE SEALER WITH GROUND. SPOKE WITH AZALEA, HAND HIDE STRETCHER FOR [facility], REPORT TO [facility] NURSE VIA PHONE, ALSO PHONE REPORT TO BONNIE ALCARAZ IN [facility] @ [facility] IN [place]. MOM AND GF GIVEN PHONE NUMBER FOR HOSPITAL.
== END 2022-07-02 11:42 | disposition short-term general hospital (02) | DRG 432 ==
LOC: ER 01:49 → ICUW 08:31
PROVIDERS: Family Medicine; Nurse Practitioner Acute Care; Student in an Organized Health Care Education/Training Program; ADMIT Internal Medicine
PROC: 30233N1 Transfusion of Nonautologous Red Blood Cells into Peripheral Vein, Percutaneous Approach (ICD-10-PCS; principal; 2022-07-01)
DX: K70.30 Alcoholic cirrhosis of liver without ascites (principal); I85.11 Secondary esophageal varices with bleeding; D62 Acute posthemorrhagic anemia; K76.6 Portal hypertension; F10.10 Alcohol abuse, uncomplicated; B19.20 Unspecified viral hepatitis C without hepatic coma; F11.10 Opioid abuse, uncomplicated; F17.210 Nicotine dependence, cigarettes, uncomplicated; Z20.822 Contact with and (suspected) exposure to COVID-19; Z79.899 Other long term (current) drug therapy; Z98.890 Other specified postprocedural states
CPT/HCPCS: 0241U; 36415; 36430; 80053; 82140; 85014; 85018; 85025; 85027; 85610; 85730; 86850; 86900; 86901; 86923; 93005; 93010; 96365; 96366; 96368; 96375; 96376; 99285-25; C9113; J0696; J0780; J2354; J2405; J2550; J2765; J7030; J7050; P9016

== ENCOUNTER 2022-07-24 12:15 | Inpatient (IN) | payer OTHER ==
[~2022-07-24] VITALS: Ht 170.2 cm; Wt 66.3 kg
[2022-07-24 12:57] LABS: BASOPHILS ABSOLUTE AUTO 0.07 K/mm3 (0.00-0.23); BASOPHILS PERCENT AUTO 1 % (0-2); EOSINOPHILS ABSOLUTE AUTO 0.19 K/mm3 (0.00-0.68); EOSINOPHILS PERCENT AUTO 2 % (0-6); Hematocrit 20.4 % (37.0-53.0); Hemoglobin 6.4 g/dL (13.5-17.5); IMMATURE GRAN ABSOLUTE AUTO 0.03 K/mm3 (0.00-0.10); IMMATURE GRAN PERCENT AUTO 0 % (0-1); LYMPHOCYTES ABSOLUTE AUTO 3.21 K/mm3 (0.84-5.20); LYMPHOCYTES PERCENT AUTO 40 % (21-46); MONOCYTES ABSOLUTE AUTO 0.73 K/mm3 (0.16-1.47); MONOCYTES PERCENT AUTO 9 % (4-13); Mean Corpuscular HGB 22.6 pg (26.0-34.0); Mean Corpuscular HGB Conc 31.4 g/dL (31.5-36.5); Mean Corpuscular Volume 72 fL (80-100); Mean Platelet Volume 9.1 fL (9.1-12.4); NEUTROPHILS ABSOLUTE AUTO 3.85 K/mm3 (1.96-9.15); NEUTROPHILS PERCENT AUTO 48 % (41-73); Platelet Count 158 K/mm3 (150-400); RDW Coefficient Variation 19.2 % (11.7-14.2); RDW Standard Deviation 49.3 fL (35.1-46.3); Red Blood Cell Count 2.83 M/mm3 (4.30-5.90); White Blood Cell Count 8.08 K/mm3 (4.00-11.30)
[2022-07-24 13:13] LABS: Albumin, Blood 2.8 g/dL (3.4-5.0); Albumin/Globulin Ratio 0.7 (0.8-1.8); Bilirubin, Total 0.7 mg/dL (0.1-1.0); Bun/Creatinine Ratio 32.2 (12.0-20.0); Calcium, Blood 7.7 mg/dL (8.5-10.1); Creatinine, Blood 0.56 mg/dL (0.60-1.20); Globulin, Blood 3.9 g/dL (2.2-4.0); Potassium, Blood 3.7 mmol/L (3.5-5.5); Total Protein, Blood 6.7 g/dL (6.4-8.2)
[2022-07-24] MEDS ORDERED: Inderal40 MG PO (15:20)
[2022-07-24] MEDS ORDERED: PANTOPRAZOLE SO40 M2 PO (15:20)
[2022-07-24] MEDS ORDERED: PROM25 (21:11)
--- NOTE | 2022-07-24 21:40 | NUR ---
ASSUMED CARE PT IS A&O X4; DROWSY. SPO2 >92% ON RA; MAP >65. PT STATES ABDOMINAL PAIN IS 6/10; GNAWING. SECOND UNIT OF PRBC INFUSING. OCTREOTIDE/PROTONIX INFUSING PER ORDER.
--- NOTE | 2022-07-24 23:07 | NUR ---
UPDATE SECOND UNIT OF PRBC INFUSED. PT AT REST W/ STABLE VITAL SIGNS.
[2022-07-24 23:23] LABS: Hematocrit 23.1 % (37.0-53.0); Hemoglobin 7.7 g/dL (13.5-17.5)
[2022-07-25 04:02] LABS: BASOPHILS ABSOLUTE AUTO 0.04 K/mm3 (0.00-0.23); BASOPHILS PERCENT AUTO 1 % (0-2); EOSINOPHILS ABSOLUTE AUTO 0.09 K/mm3 (0.00-0.68); EOSINOPHILS PERCENT AUTO 1 % (0-6); Hematocrit 21.3 % (37.0-53.0); Hemoglobin 7.2 g/dL (13.5-17.5); IMMATURE GRAN ABSOLUTE AUTO 0.02 K/mm3 (0.00-0.10); IMMATURE GRAN PERCENT AUTO 0 % (0-1); LYMPHOCYTES ABSOLUTE AUTO 2.76 K/mm3 (0.84-5.20); LYMPHOCYTES PERCENT AUTO 37 % (21-46); MONOCYTES ABSOLUTE AUTO 0.83 K/mm3 (0.16-1.47); MONOCYTES PERCENT AUTO 11 % (4-13); Mean Corpuscular HGB 24.9 pg (26.0-34.0); Mean Corpuscular HGB Conc 33.8 g/dL (31.5-36.5); Mean Corpuscular Volume 74 fL (80-100); Mean Platelet Volume 9.6 fL (9.1-12.4); NEUTROPHILS ABSOLUTE AUTO 3.81 K/mm3 (1.96-9.15); NEUTROPHILS PERCENT AUTO 50 % (41-73); Platelet Count 100 K/mm3 (150-400); RDW Coefficient Variation 19.4 % (11.7-14.2); RDW Standard Deviation 52.1 fL (35.1-46.3); Red Blood Cell Count 2.89 M/mm3 (4.30-5.90); White Blood Cell Count 7.55 K/mm3 (4.00-11.30)
[2022-07-25 04:25] LABS: Albumin, Blood 2.5 g/dL (3.4-5.0); Albumin/Globulin Ratio 0.7 (0.8-1.8); Bilirubin, Total 0.9 mg/dL (0.1-1.0); Bun/Creatinine Ratio 41.7 (12.0-20.0); Creatinine, Blood 0.67 mg/dL (0.60-1.20); Globulin, Blood 3.5 g/dL (2.2-4.0); Potassium, Blood 4.1 mmol/L (3.5-5.5)
--- NOTE | 2022-07-25 04:54 | NUR ---
SHIFT SUMMARY PT IS A&O X4; LESS DROWSY THAN INITIAL ASSUMPTION OF CARE. SPO2 >92% ON RA; MAP >65. 2 UNITS PRBC INFUSED W/ SECOND ONE STARTED IN ED AND FINISHED IN THE ICU. NO BOWEL MOVEMENTS THIS SHIFT. ONE EPISODE OF NAUSEA AFTER GIVING FENTANYL PER ORDER FOR PT'S PAIN. NO OTHER ACUTE EPISODES THIS SHIFT. OCTREOTIDE AND PROTONIX INFUSING PER ORDER.
--- NOTE | 2022-07-25 07:13 | NUR ---
Received report from Noc RN. Patient is resting and responds to verbal stimuli. He is alert and oriented and is able to communicate his needs. He moes all extremities. He is on RA and sats 95%. He has 20ga IV to LAC and is flushed and SL's. he has 20ga to RW and is infusing Octreotide at 50 mcg/hr and Protonix at 8mg/hr. Urinal within reach of patient. Awaiting consult from Dr Harris. Patient remains NPO. Call light within reach.
--- NOTE | 2022-07-25 09:30 | NUR ---
Patient has been resting with family at bedside. He was up to bedside cammode with minimal assist. He had 500 mls of yellow urine. He has Octrotide and protonix infusing, no changes. MAEW. Remains on RA and sats >90%.
--- NOTE | 2022-07-25 12:00 | NUR ---
Patient continues to rest and denies any needs. Family at bedside. Family awaiting Dr Harris still. VSS. He is independent with positioning in bed. He remains on RA and no changes to gtt's.
--- NOTE | 2022-07-25 14:15 | NUR ---
Paient awake and up to bathroom with minimal assist. He stated he has 5/10 abdominal pain and medicated per SEP. Day surgery will be here soon to start scope. He remains on RA and no changes to Octreotide or Protonix. Patient independent with positioning in bed.
--- NOTE | 2022-07-25 15:12 | NUR ---
07/25/22 1512 Amber Del Real HISTORY, CHART, MEDICATIONS AND ALLERGIES REVIEWED BEFORE START OF PROCEDURE. PATIENT CONFIRMS NPO STATUS AND AGREES WITH SCHEDULED PROCEDURE. 3-LEAD EKG REVIEWED WITH PHYSICIAN PRIOR TO START OF PROCEDURE. MONITOR INTACT WITH CONTINUOUS PULSE OXIMETRY,CAPNOGRAPHY, 3-LEAD EKG, INTERMITTENT BP. SUPPLEMENTAL O2 TO BE TITRATED THROUGHOUT PROCEDURE TO MAINTAIN O2 SATURATION ABOVE 90%. PATIENT DETERMINED TO BE ASA APPROPRIATE FOR PROPOFOL SEDATION PRIOR TO START OF PROCEDURE BY DR. BERNAL
--- NOTE | 2022-07-25 16:28 | NUR ---
Patient finished upper scope and Dr Talavera stopped Octreotide and changed Protonix to 40 mg BID. Patient resting since scope. Family spoke with Dr Talavera and went home. He remains on RA and sats >90%. He is arousable to verbal stimuli.
--- NOTE | 2022-07-25 18:00 | NUR ---
Patient has been resting with family at bedside. He is on clear liquid diet per Dr Harris. and was hungry and gave him some snacks, He remains on RA and sats >90%. He has been up to bathroom several more time and tolerates well. He self positins for comfort. He is pretty regular for pain in abdomen every two hours. JOSE STEVENS. Will transfer to [facility] tomorrow.
[2022-07-26 03:35] LABS: Hematocrit 20.7 % (37.0-53.0); Hemoglobin 6.9 g/dL (13.5-17.5)
[2022-07-26 03:52] LABS: Bun/Creatinine Ratio 27.1 (12.0-20.0); Calcium, Blood 7.8 mg/dL (8.5-10.1); Creatinine, Blood 0.81 mg/dL (0.60-1.20); Potassium, Blood 3.5 mmol/L (3.5-5.5)
--- NOTE | 2022-07-26 05:59 | NUR ---
SHIFT SUMMERY PT IS ALERT AND ORIENTED X4, AMBULATES WELL TO BEDSIDE COMMODE. VSS, NO VOMITING OR BM OVERNIGHT. ONE UNIT PRBC ORDERED FOR TODAY. COMPLAINTS OF ABD PAIN REQUIRING PRN FENTANYL FREQUENTLY, SOME NAUSEA TREATED W/ZOFRAN OVERNIGHT WELL. NO ACUTE CHANGES OVERNIGHT.
--- NOTE | 2022-07-26 07:20 | NUR ---
Received report from Angela NICOLE. Patient resting in bed and awakens to verbal stimuli and is alert and oriented and is able to communicate his needs. he continues to c/o abdominal pain while awake 5-12/16 and is medicated per SEP. He has bathroom privledges and is a one pwer assist with line. He is independent with positioning for comfort. He has 20ga IV in RW, RFA and left AC, all flushed and SL'd except RFA which is infusing blood at 125ml/hr. and no adverse reactions. He is SR60's and systolic 117. Plan to down grade to medical today.
--- NOTE | 2022-07-26 09:32 | NUR ---
Patients PRBC finished. He is up to bathroom with one assist for lines. He remains independent with transfers. RA and sats 97%. All IV's flushed and SL'd. Discussed getting up to shower and he agreed. He continues to awake with abdominal pain 6/10 and medicating Q2hr, tender to palp.
--- NOTE | 2022-07-26 12:00 | NUR ---
Patient continues to rest without changes. He tolerated very small amount of breakfast and went back to sleep. He continues to request pain meds every 2 hours for 6/10 abdominal pain and medcated per MAR. He remains on RA and sats >90% and is independent with positioning for comfort. Dr Dixon has not been in today yet or GI to follow up. He has tolerated well getting up to bath room to urinate, 800 mls out so far this shift. He denies any other needs. Family has been in and out several times today.
[2022-07-26] MEDS ORDERED: PANT40 PO (14:11)
--- NOTE | 2022-07-26 14:16 | NUR ---
Dr Dixon by and discharged patient. All IV's removed intact. Patient dressed and awaiting a ride home. He is independent in room. He is on RA and sats >90%. Written discharge instructions reveiwed with patient and he returned understanding.
== END 2022-07-26 15:05 | disposition home or self-care (01) | DRG 369 ==
LOC: ER 12:15 → ICUW 18:34
PROVIDERS: Internal Medicine; Student in an Organized Health Care Education/Training Program; ADMIT Internal Medicine
PROC: 30233N1 Transfusion of Nonautologous Red Blood Cells into Peripheral Vein, Percutaneous Approach (ICD-10-PCS; 2022-07-24)
PROC: 0DJ08ZZ Inspection of Upper Intestinal Tract, Via Natural or Artificial Opening Endoscopic (ICD-10-PCS; principal; 2022-07-25 15:00)
DX: K22.6 Gastro-esophageal laceration-hemorrhage syndrome (principal); F10.239 Alcohol dependence with withdrawal, unspecified; K76.6 Portal hypertension; K70.30 Alcoholic cirrhosis of liver without ascites; Z51.5 Encounter for palliative care; K20.90 Esophagitis, unspecified without bleeding; I85.00 Esophageal varices without bleeding; D50.0 Iron deficiency anemia secondary to blood loss (chronic); B18.2 Chronic viral hepatitis C; K31.89 Other diseases of stomach and duodenum; F17.210 Nicotine dependence, cigarettes, uncomplicated; Z79.899 Other long term (current) drug therapy; Z98.890 Other specified postprocedural states
CPT/HCPCS: 36415; 36430; 74177; 80048; 80053; 82105; 83690; 84484; 85014; 85018; 85025; 86850; 86900; 86901; 86923; 93005; 93010; 96365-59; 96368; 96375; 99285-25; C9113; J0171; J0696; J1430; J2060; J2250; J2270; J2354; J2405; J2550; J2704; J2765; J3010; J3411; J7030; J7050; J7120; P9016; Q9967

== ENCOUNTER 2022-08-12 22:41 | Inpatient (IN) | payer OTHER ==
[~2022-08-12] VITALS: Ht 170.2 cm; Wt 63.7 kg
[~2022-08-12 22:41] MED LIST changes: +Inderal40 MG PO; +PANTOPRAZOLE SO40 M2 PO; +PROM25
[2022-08-12 23:14] LABS: BASOPHILS ABSOLUTE AUTO 0.05 K/mm3 (0.00-0.23); BASOPHILS PERCENT AUTO 1 % (0-2); EOSINOPHILS ABSOLUTE AUTO 0.16 K/mm3 (0.00-0.68); EOSINOPHILS PERCENT AUTO 2 % (0-6); IMMATURE GRAN ABSOLUTE AUTO 0.08 K/mm3 (0.00-0.10); IMMATURE GRAN PERCENT AUTO 1 % (0-1); LYMPHOCYTES ABSOLUTE AUTO 1.89 K/mm3 (0.84-5.20); LYMPHOCYTES PERCENT AUTO 28 % (21-46); MONOCYTES ABSOLUTE AUTO 0.73 K/mm3 (0.16-1.47); MONOCYTES PERCENT AUTO 11 % (4-13); Mean Corpuscular HGB 22.4 pg (26.0-34.0); Mean Corpuscular Volume 75 fL (80-100); Mean Platelet Volume 9.4 fL (9.1-12.4); NEUTROPHILS ABSOLUTE AUTO 3.86 K/mm3 (1.96-9.15); NEUTROPHILS PERCENT AUTO 57 % (41-73); Platelet Count 126 K/mm3 (150-400); RDW Coefficient Variation 20.8 % (11.7-14.2); RDW Standard Deviation 56.4 fL (35.1-46.3); Red Blood Cell Count 2.28 M/mm3 (4.30-5.90); White Blood Cell Count 6.77 K/mm3 (4.00-11.30)
[2022-08-12 23:18] LABS: Hemoglobin 5.1 g/dL (13.5-17.5)
[2022-08-12 23:30] LABS: Albumin, Blood 2.8 g/dL (3.4-5.0); Albumin/Globulin Ratio 0.8 (0.8-1.8); Bilirubin, Total 0.6 mg/dL (0.1-1.0); Bun/Creatinine Ratio 20.2 (12.0-20.0); Calcium, Blood 7.6 mg/dL (8.5-10.1); Creatinine, Blood 0.59 mg/dL (0.60-1.20); Globulin, Blood 3.6 g/dL (2.2-4.0); Potassium, Blood 4.1 mmol/L (3.5-5.5); Total Protein, Blood 6.4 g/dL (6.4-8.2)
[2022-08-13 00:21] LABS: International Normalized Ratio 1.39; Prothrombin Time Results 14.3 Sec (9.7-11.5)
--- NOTE | 2022-08-13 02:11 | NUR ---
PT ARRIVED FROM ER VIA STRETCHER AT 0105. PT IS ALERT AND ORIENTED X4. BLOOD WAS BROUGHT FROM ER BUT TRANSFUSION HAD NOT BEEN STARTED YET. OCTREOTIDE DRIP WAS INFUSING. PROTONIX DRIP WAS ORDERED BUT HAD NOT BEEN STARTED. PT ARRIVED W/2 PIVS AND A THIRD WAS STARTED DUE TO MED INCOMPATIBILITY. BLOOD TRANSUSION WAS STARTED WELL PROTONIX DRIP. OCTREOTIDE DRIP CONTINUES PER MD ORDER. PT IS ON 2L NC W/OXYGEN SAT 97%. HE IS ST ON THE CARPET LAYER HELPER AT THIS TIME AND BP IS WNL. HE IS AFEBRILE. HE HAS HAD NO VOMITING SINCE ARRIVAL TO THE UNIT.
[2022-08-13 07:24] LABS: BASOPHILS ABSOLUTE AUTO 0.02 K/mm3 (0.00-0.23); BASOPHILS PERCENT AUTO 1 % (0-2); EOSINOPHILS ABSOLUTE AUTO 0.07 K/mm3 (0.00-0.68); EOSINOPHILS PERCENT AUTO 2 % (0-6); Hematocrit 19.5 % (37.0-53.0); Hemoglobin 6.2 g/dL (13.5-17.5); IMMATURE GRAN ABSOLUTE AUTO 0.04 K/mm3 (0.00-0.10); IMMATURE GRAN PERCENT AUTO 1 % (0-1); LYMPHOCYTES ABSOLUTE AUTO 1.21 K/mm3 (0.84-5.20); LYMPHOCYTES PERCENT AUTO 29 % (21-46); MONOCYTES PERCENT AUTO 12 % (4-13); Mean Corpuscular HGB 24.9 pg (26.0-34.0); Mean Corpuscular HGB Conc 31.8 g/dL (31.5-36.5); Mean Corpuscular Volume 78 fL (80-100); Mean Platelet Volume 10.1 fL (9.1-12.4); NEUTROPHILS ABSOLUTE AUTO 2.39 K/mm3 (1.96-9.15); NEUTROPHILS PERCENT AUTO 57 % (41-73); Platelet Count 87 K/mm3 (150-400); RDW Coefficient Variation 20.8 % (11.7-14.2); RDW Standard Deviation 59.6 fL (35.1-46.3); Red Blood Cell Count 2.49 M/mm3 (4.30-5.90); White Blood Cell Count 4.23 K/mm3 (4.00-11.30)
[2022-08-13 07:50] LABS: Albumin, Blood 2.5 g/dL (3.4-5.0); Albumin/Globulin Ratio 0.8 (0.8-1.8); Bilirubin, Total 1.2 mg/dL (0.1-1.0); Bun/Creatinine Ratio 16.9 (12.0-20.0); Calcium, Blood 7.1 mg/dL (8.5-10.1); Creatinine, Blood 0.71 mg/dL (0.60-1.20); Globulin, Blood 3.3 g/dL (2.2-4.0); Potassium, Blood 4.1 mmol/L (3.5-5.5); Total Protein, Blood 5.8 g/dL (6.4-8.2)
--- NOTE | 2022-08-13 08:00 | NUR ---
INITIAL ASSESSMENT PATIENT SLEEPING UPON ENTERING ROOM. PATIENT LETHARGIC. PATIENT ALERT AND ORIENTED X 4. PATIENT HAS TEMP OF 99.3 DEGREES FAHRENHEIT. CIWA SCORE OF 2. PATIENT WEAK BUT ABLE TO MOVE ALL EXTREMITIES AND IS REPOSITIONING SELF IN BED. PATIENT COMPLAINS OF STOMACH PAIN. PATIENT ON 2 L NC TO KEEP SATS 90% AND GREATER WHILE SLEEPING. LUNGS CLEAR. PATIENT STATES HE HAS HAD DRY COUGH FOR AROUND 2 WEEKS TIME NOW. PATIENT IN SR, HR IN THE 90S. SBP 120S TO 130S. 1+ EDEMA NOTED IN BILAT FEET. SCDS IN PLACE. ABD TENDER WITH NORMOACTIVE BOWEL SOUNDS NOTED. SCHEDULED REGLAN BEING GIVEN. PATIENT HAS NO COMPLAINTS OF NAUSEA AT THIS TIME. PATIENT USING URINAL INDEPENDENTLY. SKIN APPEARS WNL. OCREOTIDE INFUSING AT 25 MLS/ HOUR AND PROTONIX INFUSING AT 10 MLS/ HOUR. BED LOW, CALL LIGHT IN REACH. WILL CONTINUE TO MONITOR PATIENT FREQUENTLY THROUGHOUT SHIFT.
--- NOTE | 2022-08-13 12:00 | NUR ---
PATIENT AFEBRILE. CIWA SCORE REMAINS 2. HR IN THE 90S. SBP IN THE 1-TEENS. ZOFRAN GIVEN SHORT TIME AGO FOR NAUSEA. PATIENT HAD LARGE MAROON COLORED STOOL. REFUSED BEDBATH. NO OTHER ACUTE CHANGES TO NOTE ON AT THIS TIME. WILL CONTINUE TO MONITOR.
--- NOTE | 2022-08-13 15:30 | NUR ---
08/13/22 1530 Helen Batres HISTORY, CHART, MEDICATIONS AND ALLERGIES REVIEWED BEFORE START OF PROCEDURE. PATIENT CONFIRMS NPO STATUS AND AGREES WITH SCHEDULED PROCEDURE. 3-LEAD EKG REVIEWED WITH PHYSICIAN PRIOR TO START OF PROCEDURE. MONITOR INTACT WITH CONTINUOUS PULSE OXIMETRY,CAPNOGRAPHY, 3-LEAD EKG, INTERMITTENT BP. SUPPLEMENTAL O2 TO BE TITRATED THROUGHOUT PROCEDURE TO MAINTAIN O2 SATURATION ABOVE 90%. PATIENT DETERMINED TO BE ASA APPROPRIATE FOR PROPOFOL SEDATION PRIOR TO START OF PROCEDURE BY
[2022-08-13 15:43] LABS: Hematocrit 23.1 % (37.0-53.0); Hemoglobin 7.4 g/dL (13.5-17.5)
--- NOTE | 2022-08-13 16:20 | NUR ---
CIWA SCORE OF 2. PATIENT SATTING 90% AND GREATER ON 1 L NC. HR 80S TO 90S. SBP 1-TEENS TO 120S. PATIENT HAVING MAROON COLORED STOOLS. WILL CONTINUE TO MONITOR.
--- NOTE | 2022-08-13 18:45 | NUR ---
SHIFT SUMMARY PATIENT REMAINED LETHARGIC AND SLEPT MOST OF THE SHIFT. PATIENT REMAINED ORIENTED TO ALL QUESTIONS. PATIENT REMAINED FLAT AND WITHDRAWN. CIWA SCORES REMAINED AT 2. PATIENT HAD TMAX OF 99.3 DEGREES FAHRENHEIT. PATIENT RECEIVED PRN TYLENOL OH FOR COMPLAINTS OF STOMACH PAIN. PATIENT REMAINED SATTING 90% AND GREATER WHILE SLEEPING ON 1 TO 2 L NC. PATIENT REMAINED IN SR, HR 70S TO LOW 100S. SBP 90S TO 130S. PATIENT GIVEN PRN ZOFRAN A COUPLE OF TIMES FOR NAUSEA DURING SHIFT. PATIENT NOW ON CLEAR LIQUID DIET AFTER BEING SCOPED. 2 BANDS PLACED. PATIENT IS HAVING MAROON STOOLS. PATIENT HAD HAD NO EMESIS THIS SHIFT. URINE DARK TEA COLORED. PATIENT TO BSC WITH 1 PERSON ASSIST FOR STOOLS. NO CHANGES TO SKIN NOTED. PATIENT HAS BEEN REPOSITIONING SELF IN BED. OCREOTIDE REMAINS AT 25 MLS/ HOUR AND PROTONIX AT 10 MLS/ HOUR. 1 L LR GIVEN THIS SHIFT. 3RD UNIT OF RBCS GIVEN TODAY. PATIENT REFUSED BED BATH. MOTHER AND GF IN MOST OF THE DAY. BED LOW, CALL LIGHT IN REACH. REPORT WILL BE GIVEN TO ASSUMING SUPERVISOR PYROTECHNIC LOADING NURSE SHORTLY.
[2022-08-13 21:46] LABS: Hemoglobin 6.6 g/dL (13.5-17.5)
--- NOTE | 2022-08-13 22:45 | NUR ---
SPOKE TO RAFA BUENO RE PT H&H RESULTS. ORDERS GIVEN. PT VS REMAIN STABLE AT THIS TIME.
[2022-08-14 03:33] LABS: BASOPHILS ABSOLUTE AUTO 0.02 K/mm3 (0.00-0.23); BASOPHILS PERCENT AUTO 1 % (0-2); EOSINOPHILS ABSOLUTE AUTO 0.06 K/mm3 (0.00-0.68); EOSINOPHILS PERCENT AUTO 2 % (0-6); Hematocrit 23.7 % (37.0-53.0); Hemoglobin 7.7 g/dL (13.5-17.5); IMMATURE GRAN ABSOLUTE AUTO 0.02 K/mm3 (0.00-0.10); IMMATURE GRAN PERCENT AUTO 1 % (0-1); LYMPHOCYTES ABSOLUTE AUTO 0.56 K/mm3 (0.84-5.20); LYMPHOCYTES PERCENT AUTO 19 % (21-46); MONOCYTES ABSOLUTE AUTO 0.52 K/mm3 (0.16-1.47); MONOCYTES PERCENT AUTO 17 % (4-13); Mean Corpuscular HGB 25.7 pg (26.0-34.0); Mean Corpuscular HGB Conc 32.5 g/dL (31.5-36.5); Mean Corpuscular Volume 79 fL (80-100); Mean Platelet Volume 9.6 fL (9.1-12.4); NEUTROPHILS ABSOLUTE AUTO 1.84 K/mm3 (1.96-9.15); NEUTROPHILS PERCENT AUTO 61 % (41-73); NRBC ABSOLUTE 0.02 K/mm3 (0.00-0.02); NRBC Auto 0.7 /100 WBC (0.0-0.2); Platelet Count 68 K/mm3 (150-400); RDW Coefficient Variation 19.5 % (11.7-14.2); RDW Standard Deviation 55.8 fL (35.1-46.3); White Blood Cell Count 3.02 K/mm3 (4.00-11.30)
[2022-08-14 04:03] LABS: Albumin, Blood 2.6 g/dL (3.4-5.0); Albumin/Globulin Ratio 0.8 (0.8-1.8); Bilirubin, Total 1.8 mg/dL (0.1-1.0); Bun/Creatinine Ratio 18.4 (12.0-20.0); Calcium, Blood 7.6 mg/dL (8.5-10.1); Creatinine, Blood 0.76 mg/dL (0.60-1.20); Globulin, Blood 3.3 g/dL (2.2-4.0); Potassium, Blood 3.7 mmol/L (3.5-5.5); Total Protein, Blood 5.9 g/dL (6.4-8.2)
--- NOTE | 2022-08-14 08:05 | NUR ---
INITIAL ASSESSMENT PATIENT TIRED BUT ALERT AND ORIENTED X 4. PATIENT AFEBRILE. CIWA SCORE OF 2. WEAK BUT ABLE TO MOVE ALL EXTREMITIES. PATIENT FLAT AND WITHDRAWN. PATIENT COMPLAINING OF CHEST PAIN AND SOB. DR. RODRIGUEZ, DR. AVELAR, AND DR. ATKINSON ALL AWARE. DR. RODRIGUEZ PLACING ORDERS FOR EKG AND LIDOCAINE PATCH. PATIENT SATTING 90% AND GREATER ON RA WHILE AWAKE AND ON 1-2 L NC WHILE SLEEPING. LUNGS CLEAR TO AUSCULTATION. PATIENT IN SR, HR IN THE 70S. SBP IN THE 120S. SCDS IN PLACE. 1+ EDEMA NOTED TO BILAT FEET. DENIES NAUSEA. NO BMS OR EMESIS OVERNIGHT PER PHARMACY INFORMATICS MANAGER RN REPORT. OCREOTIDE INFUSING AT 25 MLS/ HOUR AND PROTONIX INFUSING AT 10 MLS/ HOUR. BED LOW, CALL LIGHT IN REACH. WILL CONTINUE TO MONITOR PATIENT FREQUENTLY THROUGHOUT SHIFT.
--- NOTE | 2022-08-14 13:02 | NUR ---
SHIFT SUMMARY PATIENT NAPPED ON AND OFF. PATIENT REMAINED ALERT AND ORIENTED X 4. CIWA REMAINED AT 2. PATIENT STATES CHEST PAIN IS IMPROVED. PATIENT SATTING 90% AND GREATER ON RA AT THIS TIME. HR AND BP HAVE REMAINED STABLE. NO BMS THIS SHIFT. NO EMESIS THIS SHIFT. COMPLAINTS OF NAUSEA OT; PATIENT REPORTED SCHEDULED REGLAN HELPED. GOOD URINE OUTPUT. NO CHANGES TO SKIN NOTED. PATIENT REFUSED ORAL CARE AND BED BATH. PATIENT WILL BE TRANSFERRED TO MEDICAL FLOOR SHORTLY.
--- NOTE | 2022-08-14 13:16 | NUR ---
PATIENT SUCCESSFULLY TRANSFERRED TO MEDICAL FLOOR, ROOM 305. ALL BELONGINGS SENT WITH PATIENT.
--- NOTE | 2022-08-14 18:38 | NUR ---
SHIFT SUMMARY- PT TRANSFERED FROM ICU. ORIENTED TO THE ROOM. PT CONTINIUED ON INFUSIONS. HIS APPETITE IS POOR. GIRLFRIEND AT BEDSIDE. PT AMBULATED TO THE RESTROOM. SKIN CHECKED WITH JANET NICOLE UPON TRANSFER. HIS BED IS IN THE LOW POSITON AND CALL LIGHT IS WITIN REACH.
--- NOTE | 2022-08-15 04:46 | NUR ---
SUMMARY: NO ACUTE EVENTS OVERNIGHT. AOX4. INDEPENDENT IN ROOM. OCTREOTIDE AND PROTINIX DRIPS RUNNING CONTINUOUSLY. DIET WILL BE ADVANCE TO FULL LIQUID IN THE MORNING PER ORDERS. UPDATED PATIENT ON PLAN. CALL LIGHT IN REACH.
[2022-08-15 05:17] LABS: Bun/Creatinine Ratio 15.3 (12.0-20.0); Calcium, Blood 7.5 mg/dL (8.5-10.1); Creatinine, Blood 0.65 mg/dL (0.60-1.20); Potassium, Blood 3.3 mmol/L (3.5-5.5)
[2022-08-15 05:41] LABS: BASOPHILS ABSOLUTE AUTO 0.03 K/mm3 (0.00-0.23); BASOPHILS PERCENT AUTO 1 % (0-2); EOSINOPHILS ABSOLUTE AUTO 0.08 K/mm3 (0.00-0.68); EOSINOPHILS PERCENT AUTO 2 % (0-6); Hematocrit 24.5 % (37.0-53.0); Hemoglobin 7.9 g/dL (13.5-17.5); IMMATURE GRAN ABSOLUTE AUTO 0.03 K/mm3 (0.00-0.10); IMMATURE GRAN PERCENT AUTO 1 % (0-1); LYMPHOCYTES ABSOLUTE AUTO 0.93 K/mm3 (0.84-5.20); LYMPHOCYTES PERCENT AUTO 22 % (21-46); MONOCYTES ABSOLUTE AUTO 0.49 K/mm3 (0.16-1.47); MONOCYTES PERCENT AUTO 12 % (4-13); Mean Corpuscular HGB 25.6 pg (26.0-34.0); Mean Corpuscular HGB Conc 32.2 g/dL (31.5-36.5); Mean Corpuscular Volume 79 fL (80-100); Mean Platelet Volume 11.1 fL (9.1-12.4); NEUTROPHILS ABSOLUTE AUTO 2.59 K/mm3 (1.96-9.15); NEUTROPHILS PERCENT AUTO 63 % (41-73); Platelet Count 68 K/mm3 (150-400); RDW Coefficient Variation 20.2 % (11.7-14.2); RDW Standard Deviation 57.9 fL (35.1-46.3); Red Blood Cell Count 3.09 M/mm3 (4.30-5.90); White Blood Cell Count 4.15 K/mm3 (4.00-11.30)
--- NOTE | 2022-08-15 18:44 | NUR ---
SHIFT SUMMARY PT A&O X 4. HAS BEEN RESTING MOST OF SHIFT. WILL AMBULATE WITH IV POLE TO RESTROOM INDEPENDENTLY. GAIT STRONG & STEADY. SIG OTHER AT BEDSIDE MOST OF SHIFT. MEDICATED FOR C/O NAUSEA WITH GOOD EFFECT. APPETITE IS MARGINAL, HAS NOT EATEN BUT BITES OF HIS FULL LIQ DIET. 3 IV'S ARE INTACT & PATENT. PROTONIX AND SANDOSTATIN GTTS INFUSING PER MD ORDERS. NO S/S OF GI BLEEDING NOTED. H&H 7.9 & 24.5.
[2022-08-16 05:30] LABS: BASOPHILS ABSOLUTE AUTO 0.03 K/mm3 (0.00-0.23); BASOPHILS PERCENT AUTO 1 % (0-2); EOSINOPHILS ABSOLUTE AUTO 0.19 K/mm3 (0.00-0.68); EOSINOPHILS PERCENT AUTO 5 % (0-6); Hematocrit 24.9 % (37.0-53.0); Hemoglobin 7.8 g/dL (13.5-17.5); IMMATURE GRAN ABSOLUTE AUTO 0.02 K/mm3 (0.00-0.10); IMMATURE GRAN PERCENT AUTO 1 % (0-1); LYMPHOCYTES ABSOLUTE AUTO 1.25 K/mm3 (0.84-5.20); LYMPHOCYTES PERCENT AUTO 33 % (21-46); MONOCYTES ABSOLUTE AUTO 0.36 K/mm3 (0.16-1.47); MONOCYTES PERCENT AUTO 10 % (4-13); Mean Corpuscular HGB 25.1 pg (26.0-34.0); Mean Corpuscular HGB Conc 31.3 g/dL (31.5-36.5); Mean Corpuscular Volume 80 fL (80-100); Mean Platelet Volume 9.6 fL (9.1-12.4); NEUTROPHILS ABSOLUTE AUTO 1.93 K/mm3 (1.96-9.15); NEUTROPHILS PERCENT AUTO 51 % (41-73); Platelet Count 72 K/mm3 (150-400); RDW Coefficient Variation 20.7 % (11.7-14.2); RDW Standard Deviation 59.7 fL (35.1-46.3); Red Blood Cell Count 3.11 M/mm3 (4.30-5.90); White Blood Cell Count 3.78 K/mm3 (4.00-11.30)
--- NOTE | 2022-08-16 05:39 | NUR ---
SUMMARY: NO ACUTE EVENTS OVERNIGHT. AOX4. VSS. INDEPENDENT IN ROOM. OCTREOTIDE AND PROTINIX DRIPS RUNNING CONTINUOUSLY. PLAN FOR DC TODAY. PATIENT STATES HE FEELS MUCH BETTER AND WENT FOR A WALK AROUND UNIT AT START OF SHIFT.
[2022-08-16 05:52] LABS: Bun/Creatinine Ratio 16.2 (12.0-20.0); Calcium, Blood 7.5 mg/dL (8.5-10.1); Creatinine, Blood 0.62 mg/dL (0.60-1.20); Potassium, Blood 3.6 mmol/L (3.5-5.5)
[2022-08-16] MEDS ORDERED: CIPR500 PO (11:32)
[2022-08-16] MEDS ORDERED: OMEP20ER PO (11:33)
[2022-08-16] MEDS ORDERED: ONDA4ODT MM (11:33)
[2022-08-16] MEDS ORDERED: Inderal40 MG PO (11:35)
[2022-08-16] MEDS ORDERED: VISBIOME 112.51 EACH PO (11:36)
[2022-08-16] MEDS ORDERED: CARAFATE1 GM/10 M1 PO (11:36)
--- NOTE | 2022-08-16 14:25 | NUR ---
DISCHARGE NOTE- PT WAS GIVEN VERBAL AND WRITTEN DISCHARGE INSTRUCTIONS AND ACKNOWLEDGED UNDERSTANDING OF THEM. PT DECLINED ESCORT AND WALKED OUT OF THE FACILITY ON HIS OWN WITH HIS FAMILY MEMBER. NO S&S OF DISTRESS NOTED AT THE TIME OF DISCHARGE. ALL THREE IVS DC'D PRIOR TO DISCHARGE.
== END 2022-08-16 13:10 | disposition home or self-care (01) | DRG 432 ==
LOC: ER 22:41 → ICUW 22:42 → ERHOLD 22:42 → ICUW 08-13 01:09 → MEDS 08-13 15:28 → ICUW 08-13 19:08 → MEDS 08-14 13:35
PROVIDERS: Emergency Medicine; Family Medicine Adult Medicine; Hospitalist; Student in an Organized Health Care Education/Training Program; ADMIT Internal Medicine
PROC: 06L38CZ Occlusion of Esophageal Vein with Extraluminal Device, Via Natural or Artificial Opening Endoscopic (ICD-10-PCS; 2022-08-13)
PROC: 30233N1 Transfusion of Nonautologous Red Blood Cells into Peripheral Vein, Percutaneous Approach (ICD-10-PCS; principal; 2022-08-13 15:00)
DX: K70.30 Alcoholic cirrhosis of liver without ascites (principal); I85.11 Secondary esophageal varices with bleeding; E87.1 Hypo-osmolality and hyponatremia; K76.6 Portal hypertension; Z91.14 Patient's other noncompliance with medication regimen; B19.20 Unspecified viral hepatitis C without hepatic coma; F17.210 Nicotine dependence, cigarettes, uncomplicated; D64.9 Anemia, unspecified; K31.89 Other diseases of stomach and duodenum; D69.59 Other secondary thrombocytopenia; E87.6 Hypokalemia; R07.89 Other chest pain; Z79.899 Other long term (current) drug therapy
CPT/HCPCS: 36415; 36430; 71046; 80048; 80053; 83690; 84484; 85014; 85018; 85025; 85610; 86850; 86900; 86901; 86923; 93005; 93010; 94762; 96365; 96375; 99285-25; A9270; C9113; G0378; J0171; J0696; J1430; J2250; J2354; J2405; J2704; J2765; J3480; J7030; J7050; J7120; P9016

== ENCOUNTER → 2022-08-20 | Emergency (ER) | payer OTHER ==
[~2022-08-20] VITALS: Ht 170.2 cm; Wt 65.8 kg
[~2022-08-20] MED LIST changes: +CARAFATE1 GM/10 M1 PO; +OMEP20ER PO; +ONDA4ODT MM; +VISBIOME 112.51 EACH PO
== END ==
LOC: ER 20:26
DX: S01.511A Laceration without foreign body of lip, initial encounter (principal); S30.1XXA Contusion of abdominal wall, initial encounter; F17.210 Nicotine dependence, cigarettes, uncomplicated; W19.XXXA Unspecified fall, initial encounter; Z79.899 Other long term (current) drug therapy
CPT/HCPCS: A9270

== ENCOUNTER 2022-08-23 03:50 | Inpatient (IN) | payer OTHER ==
[~2022-08-23] VITALS: Ht 170.2 cm; Wt 61.0 kg
[2022-08-23 06:37] LABS: Albumin/Globulin Ratio 0.6 (0.8-1.8); Bilirubin, Direct 0.4 mg/dL (0.0-0.3); Bilirubin, Total 0.7 mg/dL (0.1-1.0); Calcium, Blood 7.9 mg/dL (8.5-10.1); Creatinine, Blood 0.67 mg/dL (0.60-1.20); Globulin, Blood 4.7 g/dL (2.2-4.0); Potassium, Blood 3.7 mmol/L (3.5-5.5); Total Protein, Blood 7.7 g/dL (6.4-8.2)
[2022-08-23 06:38] LABS: BASOPHILS ABSOLUTE AUTO 0.05 K/mm3 (0.00-0.23); BASOPHILS PERCENT AUTO 1 % (0-2); EOSINOPHILS ABSOLUTE AUTO 0.08 K/mm3 (0.00-0.68); EOSINOPHILS PERCENT AUTO 1 % (0-6); Hemoglobin 9.6 g/dL (13.5-17.5); IMMATURE GRAN ABSOLUTE AUTO 0.03 K/mm3 (0.00-0.10); IMMATURE GRAN PERCENT AUTO 1 % (0-1); International Normalized Ratio 1.34; LYMPHOCYTES ABSOLUTE AUTO 2.86 K/mm3 (0.84-5.20); LYMPHOCYTES PERCENT AUTO 43 % (21-46); MONOCYTES ABSOLUTE AUTO 0.61 K/mm3 (0.16-1.47); MONOCYTES PERCENT AUTO 9 % (4-13); Mean Corpuscular HGB 24.6 pg (26.0-34.0); Mean Corpuscular Volume 77 fL (80-100); Mean Platelet Volume 9.1 fL (9.1-12.4); NEUTROPHILS ABSOLUTE AUTO 3.01 K/mm3 (1.96-9.15); NEUTROPHILS PERCENT AUTO 45 % (41-73); Platelet Count 154 K/mm3 (150-400); Prothrombin Time Results 13.8 Sec (9.7-11.5); RDW Coefficient Variation 21.1 % (11.7-14.2); RDW Standard Deviation 58.5 fL (35.1-46.3); White Blood Cell Count 6.64 K/mm3 (4.00-11.30)
[2022-08-23 07:30] LABS: Influenza A, PCR Negative (NEGATIVE); Influenza B, PCR Negative (NEGATIVE); Resp Syncytial Virus, PCR Negative (NEGATIVE); SARS-Cov-2 (COVID-19) PCR, MMC Negative (NEGATIVE)
[2022-08-23 10:22] LABS: Hematocrit 25.3 % (37.0-53.0)
--- NOTE | 2022-08-23 15:07 | NUR ---
PT ARRIVED IN THE ROOM FROM THE ER VIA GURNEY PT WAS ABLE TO STAND AND TRANSFER T PCU BED, REPORT RECEIVED FROM AZALEA NICOLE. PT IS ALERT AND ORIENTED X4, DAILY ETOH USE, APPEARS JAUNDICED AND WEAK. REPORTED BLOODY EMESIS PRIOR TO ARRIVAL TO ER. PROTONIX AND OCREATIDE GTT RUNNING AND MAINTENANCE FLUID D5 1/2 NS AT 75MLS/HR. VITALS HRR SR 70'S, BP SYSTOLIC 100-110'S, SATS ABOVE 95% ON RA, AFEBRILE. PT C/O NAUSEA AND ABD PAIN UPONR ARRIVAL MEDICATED WITH FENTANYL AND ZOFRAN AND WAS RELIEVED. ABD ELEONORA DONE IN THE ROON. GI CONSULTED, CALLED PER ER NURSE, PT KEPT NPO AT THIS TIME. WILL MONITOR PT UNTIL THE END OF SHIFT
[2022-08-23 16:27] LABS: Percent Saturation 5.6 % (20.0-50.0)
[2022-08-23 17:47] LABS: Hematocrit 26.6 % (37.0-53.0); Hemoglobin 8.4 g/dL (13.5-17.5)
--- NOTE | 2022-08-23 19:01 | NUR ---
PT NO ACUTE CHANGE SINCE ARRIVAL, NO EMESIS/BLACK STOOL REPORTED PT MEDICATED WITH FENTANYL FOR PAIN X2 FOR ABD PAIN. PT STARTED ON FULL LIQUID DIET TOLERATED WELL. GIRLFRIEND AT THE BEDSIDE. PLAN FOR EGD IN AM. VITALS STABLE. WILL REPORT TO ONCOMING SHIFT
[2022-08-23 22:00] LABS: Hematocrit 27.2 % (37.0-53.0); Hemoglobin 8.5 g/dL (13.5-17.5)
[2022-08-24 04:17] LABS: Hematocrit 25.5 % (37.0-53.0); Mean Corpuscular HGB 24.1 pg (26.0-34.0); Mean Corpuscular HGB Conc 31.4 g/dL (31.5-36.5); Mean Corpuscular Volume 77 fL (80-100); Platelet Count 113 K/mm3 (150-400); RDW Coefficient Variation 21.3 % (11.7-14.2); RDW Standard Deviation 59.5 fL (35.1-46.3); Red Blood Cell Count 3.32 M/mm3 (4.30-5.90); White Blood Cell Count 4.09 K/mm3 (4.00-11.30)
[2022-08-24 04:42] LABS: Albumin, Blood 2.6 g/dL (3.4-5.0); Albumin/Globulin Ratio 0.7 (0.8-1.8); Bilirubin, Total 0.7 mg/dL (0.1-1.0); Bun/Creatinine Ratio 9.3 (12.0-20.0); Calcium, Blood 7.3 mg/dL (8.5-10.1); Creatinine, Blood 0.75 mg/dL (0.60-1.20); Globulin, Blood 3.8 g/dL (2.2-4.0); Potassium, Blood 3.7 mmol/L (3.5-5.5); Total Protein, Blood 6.4 g/dL (6.4-8.2)
--- NOTE | 2022-08-24 05:59 | NUR ---
COMMERCIAL LENDER SUMMARY ASSUMED CARE OF THE PT AT 1900. HE WAS LETHARGIC AT THE START OF THE SHIFT AND UNABLE TO ANSWER ORIENTATION QUESTIONS CORRECTLY. HE BECAME MORE ALERT THROUGHOUT THE SHIFT AND REPORTED MORE ABDOMINAL PAIN. HE WAS MEDICATED WITH FENTANYL IV AND ABLE TO SLEEP INTERMITTENTLY. PT GIVEN ZOFRAN X2 FOR NAUSEA. HE BEGAN HAVING ANXIETY, SWEATING, AND TREMORS SO ORDERS WERE OBTAINED FROM DR. NOBLE FOR WITHDRAWAL CIWA WAS 13. PT CIWA CURRENTLY 4 DUE TO PT BEING ASLEEP FROM [facility]. VSS THROUGHOUT THE SHIFT BUT PT DID REQUIRE 1L BY NC FOR SUPPLEMENTATION DUE TO SEDATION FROM [facility]. PT HAS BEEN ON FULL LIQUIDS UNTIL 0300, EATING CHICKEN BROTH AND JELLO BUT NOTED TO HAVE INCREASED PAIN FOLLOWING THIS. PT HAD WATER ONLY AFTER 0300 AND WILL BE NPO AT 1200 TODAY FOR EGD. SINUS ON THE TELE. MID EPIGASTRIC ABDOMINAL PAIN RANGING FROM 5-8.
--- NOTE | 2022-08-24 16:30 | NUR ---
SHIFT SUMMARY PT HAS BEEN ALERT AND ORIENTED X4. HE HAS BEEN SOMNOLENT DURING SHIFT BUT WAKES EASILY TO VERBAL STIMULI. CIWA WAS 1 THIS AM AND HAS REMAINED UNCHANGED. PT HAS REPORTED ABD PAIN DURING SHIFT WELL NAUSEA, SEE EMAR FOR PAIN MANAGEMENT WELL NAUSEA MANAGEMENT. VSS, SPO2 MAINTAINED 96% VIA 1L NC WHEN PT IS ASLEEP, WHEN AWAKE SPO2 MAINTAINED >95% VIA RA. HE HAS DENIED FEELINGS OF CHEST PAIN/PRESSURE, NO COUGH NOTED, NO VOMITTING. PER PT REPORT, HE HAD A BROWN BM TODAY. PROTONIX D5 IN 1/2 NS, AND OCTREOTIDE ARE INFUSING PER EMAR ORDERS. PT HAS BEEN SBA TO MANAGE LINES TO BATHROOM. PT IS CURRENTLY NPO PER EMAR ORDERS W/ PLAN FOR SCOPE TODAY 08/24. WILL CONTINUE TO MONITOR UNTIL REPORT GIVEN. CALL LIGHT IS W/IN REACH.
--- NOTE | 2022-08-24 17:47 | NUR ---
PT RECENTLY HERE BY MACIEJ TO [facility]. History, Chart, Medications and Allergies reviewed before start of procedure.Lungs clear T/O to Auscultation. Patient confirms NPO status and agrees with scheduled surgery. Pre-Op teaching done. Pt verbalizes understanding.
--- NOTE | 2022-08-24 17:50 | NUR ---
CARE NOTE PT LEFT FOR EGD AT APPROX. 1740 VIA MACIEJ Burgess/ MALOU NICOLE FROM DAY SURGERY.
--- NOTE | 2022-08-24 18:07 | NUR ---
08/24/22 [address] GARCIA
--- NOTE | 2022-08-25 02:48 | NUR ---
PT COMPLAINING OF PAIN AND REQUESTING MEDICATION. PT OFFERED NORCO BUT REFUSED THIS, STATING IT "DIDN'T WORK LAST TIME". PT AGREEABLE TO WAITING FOR FENTANYL DOSE AND GOES BACK TO SLEEP.
[2022-08-25 06:30] LABS: Hematocrit 24.4 % (37.0-53.0); Hemoglobin 7.7 g/dL (13.5-17.5); Mean Corpuscular HGB 24.1 pg (26.0-34.0); Mean Corpuscular HGB Conc 31.6 g/dL (31.5-36.5); Mean Corpuscular Volume 77 fL (80-100); Mean Platelet Volume 9.9 fL (9.1-12.4); Platelet Count 107 K/mm3 (150-400); RDW Coefficient Variation 21.3 % (11.7-14.2); RDW Standard Deviation 59.8 fL (35.1-46.3); Red Blood Cell Count 3.19 M/mm3 (4.30-5.90)
--- NOTE | 2022-08-25 06:33 | NUR ---
COLLEGE TUTOR SUMMARY ASSUMED CARE OF THE PT AT 1900. HE IS ALERT AND ORIENTED X4. PT CONTINUES TO HAVE MID EPIGASTRIC PAIN AND WAS MEDICATED PER MAR. REPORTS NO RELIEF FROM NORCO. HE IS ON A REGULAR DIET AND WAS NOTED TO HAVE TACO DUBOSE FOR DINNER - PT DENIES THIS WHEN TOLD THIS MAY BE UPSETTING HIS STOMACH. PT DESATS WHILE SLEEPING INTO THE HIGH 80S SO WAS PLACED ON 2.5 L BY NC TO MAINTAIN >92%. HE IS AMBULATORY A SBA TO THE BR. BP REMAINS STABLE. PT SLEEPING ON AND OFF. SINUS IN THE 60S TO 80S ON TELE.
[2022-08-25 07:23] LABS: Albumin, Blood 2.5 g/dL (3.4-5.0); Albumin/Globulin Ratio 0.7 (0.8-1.8); Bilirubin, Total 0.8 mg/dL (0.1-1.0); Calcium, Blood 7.5 mg/dL (8.5-10.1); Creatinine, Blood 0.88 mg/dL (0.60-1.20); Globulin, Blood 3.6 g/dL (2.2-4.0); Magnesium, Blood 1.7 mg/dL (1.6-2.4); Phosphorus, Blood 4.2 mg/dL (2.5-4.9); Potassium, Blood 3.7 mmol/L (3.5-5.5); Total Protein, Blood 6.1 g/dL (6.4-8.2)
--- NOTE | 2022-08-25 16:31 | NUR ---
UPDATE PT VOMITTED APPROXIMATELY 200ML OF YELLOW EMESIS. NO BLOOD NOTED. PT MEDICATED PER EMAR WITH ZOFRAN. PT COMPLAINS OF STOMACH PAIN. WILL CONTINUE TO MONITOR
--- NOTE | 2022-08-25 17:38 | NUR ---
SHIFT SUMMARY PT REMAINS ALERT AND ORIENTED. PT SLEEPING MOST OF SHIFT. PT HAS REQUIRED 2L NC TO KEEP O2 SATS >90%. BP STABLE. PT CONTINUES TO COMPLAIN OF ABD AND STOMACH PAIN. PT ATE SALAMI AND PEPPERONI SANDWICH WITH PEPPERONCINIS FOR LUNCH AND THEN VOMITTED SHORTLY AFTER. PT ENCOURAGED TO EAT MORE BLAND FOODS AND MEDICATED FOR NAUSEA. PT ABLE TO AMBULATE TO BATHROOM WITH SBA TO VOID. WILL CONTINUE TO MONITOR AND REPORT TO ONCOMING RN
--- NOTE | 2022-08-26 05:41 | NUR ---
SHIFT SUMMARY NO ACUTE CHANGE TO REPORT OVERNIGHT. PT CONTINUES TO COMPLAIN OF ABD PAIN, MEDICATED PER EMAR. PER DAYSHIFT RN REPORT PT HAS NOT BEEN EATING BLAND FOOD AND HAS HAD FAST FOOD BROUGHT IN WHICH COULD HAVE POSSIBLY CONTRIBUITED TO HIS ABD PAIN. PT HAS NOT HAD ANY VOMITTING THIS SHIFT, AND DENIES NAUSEA WHEN ASKED. DR. MCLEOD ROUNDED ON PT YESTERDAY EVENING. PT REPORTS SOME ANXIETY THIS SHIFT. PLAN IS FOR DC TODAY. BED IN LOWEST POSITION, CALL LIGHT WITHIN REACH.
--- NOTE | 2022-08-26 08:38 | NUR ---
ASSUMPTION OF CARE: PATIENT IS INFUSING SANDOSTATIN. PATIENT RESTING. RECENTLY MEDICATED FOR NAUSEA AND PAIN. OF THE ABD WHICH IS VERY SLOWLY IMPROVING. PATIENT DENIES CHETS PAIN PRESSURE OR SOB. ON RA CLEAR LUNGS. SPO2 MONITORING IN PLACE WHILE SLEEPING DUE TO DROPS THROUGH THE NIGHT AT TIMES. GI CLEARED FOR DISCHARGE ON HIS END, AND MEDICATIONS DISCONTINUES. AWAITING ORDERS. CBC PENDING WILL CONTINUE TO MONITOR UNTIL SHIFT CHANGE.
[2022-08-26 08:49] LABS: Hematocrit 24.4 % (37.0-53.0); Hemoglobin 7.8 g/dL (13.5-17.5); Mean Corpuscular HGB 24.4 pg (26.0-34.0); Mean Corpuscular Volume 76 fL (80-100); Mean Platelet Volume 9.3 fL (9.1-12.4); Platelet Count 92 K/mm3 (150-400); RDW Coefficient Variation 21.4 % (11.7-14.2); RDW Standard Deviation 58.7 fL (35.1-46.3); White Blood Cell Count 3.59 K/mm3 (4.00-11.30)
[2022-08-26] MEDS ORDERED: CIPR500 PO (12:21)
[2022-08-26] MEDS ORDERED: MULVITA PO (12:22)
--- NOTE | 2022-08-26 14:58 | NUR ---
DISCHARGE SUMMARY: PATIENT IS ALERT AND ORIENTED, SIGNIFICNAT OTHER AND PATIET WERE GIVEN DISCHARGE OINSTRUCTIONS WITH NO FURTHER QUESTIONS COMMENTS OR CONCERNS. THEY UNDERSTOOD CLEARLY. IV'S REMOVED, PATIENT EDUCATED ON IMPORTENCE OF SUSTAINING FROM CERTAIN MEDICATION AND ETOH. PATIENT AGREED. FOLLOW UP . REESTABLISH WITH PCP. PATIENT IN NO SIGN OF ACUTE DISTRESS. NO VISUAL SIGNS OF BLEEDING. DENIES COLLEEN - TURIA, CHEZIA, TEMESIS. PATIENT HAS ALL BELONGINGS. AND WAS WHEELED OUT BY THIS RN.
== END 2022-08-26 14:47 | disposition home or self-care (01) | DRG 381 ==
LOC: ER 03:50 → PCU 03:51 → ERHOLD 03:51 → ER 05:49 → PCU 13:27
PROVIDERS: Internal Medicine; Internal Medicine Gastroenterology; Student in an Organized Health Care Education/Training Program; ADMIT Internal Medicine
PROC: 0DJ08ZZ Inspection of Upper Intestinal Tract, Via Natural or Artificial Opening Endoscopic (ICD-10-PCS; principal; 2022-08-24 15:30)
DX: K22.11 Ulcer of esophagus with bleeding (principal); I85.10 Secondary esophageal varices without bleeding; K76.6 Portal hypertension; K70.30 Alcoholic cirrhosis of liver without ascites; F17.210 Nicotine dependence, cigarettes, uncomplicated; F10.229 Alcohol dependence with intoxication, unspecified; D50.8 Other iron deficiency anemias; K31.89 Other diseases of stomach and duodenum; K29.70 Gastritis, unspecified, without bleeding; Y90.8 Blood alcohol level of 240 mg/100 ml or more; Z79.899 Other long term (current) drug therapy; Z86.19 Personal history of other infectious and parasitic diseases
CPT/HCPCS: 0241U; 36415; 74177; 76705; 80053; 82248; 82728; 83540; 83550; 83690; 83735; 84100; 85014; 85018; 85025; 85027; 85610; 85730; 94762; 96365-59; 96366; 96367; 96375; 96376; 99285-25; A9270; C9113; G0378; G0480; J0696; J2001; J2354; J2405; J2704; J2916; J3010; J3411; J7042; J7050; J7120; Q9967

== ENCOUNTER 2022-09-03 21:36 | Emergency (ER) | payer OTHER ==
[~2022-09-03] VITALS: Ht 167.6 cm; Wt 63.5 kg
[~2022-09-03 21:36] MED LIST changes: +MULVITA PO
[2022-09-03 22:04] LABS: BASOPHILS ABSOLUTE AUTO 0.07 K/mm3 (0.00-0.23); BASOPHILS PERCENT AUTO 1 % (0-2); EOSINOPHILS ABSOLUTE AUTO 0.07 K/mm3 (0.00-0.68); EOSINOPHILS PERCENT AUTO 1 % (0-6); Hematocrit 23.9 % (37.0-53.0); Hemoglobin 7.5 g/dL (13.5-17.5); IMMATURE GRAN ABSOLUTE AUTO 0.06 K/mm3 (0.00-0.10); IMMATURE GRAN PERCENT AUTO 1 % (0-1); LYMPHOCYTES ABSOLUTE AUTO 1.37 K/mm3 (0.84-5.20); LYMPHOCYTES PERCENT AUTO 22 % (21-46); MONOCYTES ABSOLUTE AUTO 0.83 K/mm3 (0.16-1.47); MONOCYTES PERCENT AUTO 14 % (4-13); Mean Corpuscular HGB 24.8 pg (26.0-34.0); Mean Corpuscular HGB Conc 31.4 g/dL (31.5-36.5); Mean Corpuscular Volume 79 fL (80-100); NEUTROPHILS ABSOLUTE AUTO 3.77 K/mm3 (1.96-9.15); NEUTROPHILS PERCENT AUTO 61 % (41-73); Platelet Count 120 K/mm3 (150-400); RDW Coefficient Variation 24.8 % (11.7-14.2); RDW Standard Deviation 70.1 fL (35.1-46.3); Red Blood Cell Count 3.03 M/mm3 (4.30-5.90); White Blood Cell Count 6.17 K/mm3 (4.00-11.30)
[2022-09-03 22:17] LABS: Albumin, Blood 2.6 g/dL (3.4-5.0); Albumin/Globulin Ratio 0.7 (0.8-1.8); Bilirubin, Total 1.1 mg/dL (0.1-1.0); Bun/Creatinine Ratio 22.5 (12.0-20.0); Calcium, Blood 7.8 mg/dL (8.5-10.1); Creatinine, Blood 0.98 mg/dL (0.60-1.20); Globulin, Blood 3.9 g/dL (2.2-4.0); Potassium, Blood 3.8 mmol/L (3.5-5.5); Total Protein, Blood 6.5 g/dL (6.4-8.2)
== END 2022-09-03 23:21 | disposition home or self-care (01) ==
LOC: ER 21:36
PROVIDERS: Emergency Medicine
DX: R10.9 Unspecified abdominal pain (principal); F10.10 Alcohol abuse, uncomplicated; F17.210 Nicotine dependence, cigarettes, uncomplicated
CPT/HCPCS: 80053; 83690; 85025; 99284; A9270; G0480

== ENCOUNTER 2022-09-04 05:18 | Emergency (ER) | payer OTHER ==
[~2022-09-04] VITALS: Ht 177.8 cm; Wt 79.4 kg
[2022-09-04 05:55] LABS: BASOPHILS ABSOLUTE AUTO 0.05 K/mm3 (0.00-0.23); BASOPHILS PERCENT AUTO 1 % (0-2); EOSINOPHILS ABSOLUTE AUTO 0.04 K/mm3 (0.00-0.68); EOSINOPHILS PERCENT AUTO 1 % (0-6); Hematocrit 23.6 % (37.0-53.0); Hemoglobin 7.5 g/dL (13.5-17.5); IMMATURE GRAN ABSOLUTE AUTO 0.04 K/mm3 (0.00-0.10); IMMATURE GRAN PERCENT AUTO 1 % (0-1); LYMPHOCYTES ABSOLUTE AUTO 1.63 K/mm3 (0.84-5.20); LYMPHOCYTES PERCENT AUTO 28 % (21-46); MONOCYTES ABSOLUTE AUTO 0.71 K/mm3 (0.16-1.47); MONOCYTES PERCENT AUTO 12 % (4-13); Mean Corpuscular HGB Conc 31.8 g/dL (31.5-36.5); Mean Corpuscular Volume 79 fL (80-100); Mean Platelet Volume 9.9 fL (9.1-12.4); NEUTROPHILS ABSOLUTE AUTO 3.32 K/mm3 (1.96-9.15); NEUTROPHILS PERCENT AUTO 57 % (41-73); Platelet Count 142 K/mm3 (150-400); RDW Coefficient Variation 25.2 % (11.7-14.2); RDW Standard Deviation 70.4 fL (35.1-46.3); White Blood Cell Count 5.79 K/mm3 (4.00-11.30)
[2022-09-04 06:12] LABS: Alanine Aminotransfer (ALT/SGP 32 U/L (12-78); Albumin, Blood 3.1 g/dL (3.4-5.0); Albumin/Globulin Ratio 0.8 (0.8-1.8); Alk Phos 123 U/L (50-136); Anion Gap 9 mmol/L (6-16); Aspartate Aminotrans (AST/SGOT 60 U/L (12-37); Bilirubin, Total 1.4 mg/dL (0.1-1.0); Blood Urea Nitrogen 35 mg/dL (8-24); Bun/Creatinine Ratio 49.9 (12.0-20.0); CO2, Blood 22 mmol/L (21-32); Calcium, Blood 8.5 mg/dL (8.5-10.1); Chloride, Blood 109 mmol/L (98-108); Ethanol (Alcohol), Blood, Med <3 mg/dL; Globulin, Blood 3.9 g/dL (2.2-4.0); Glomerular Filtration Rate 127 (60-); Glucose, Blood 152 mg/dL (70-99); Sodium, Blood 140 mmol/L (136-145)
[2022-09-04 06:29] LABS: International Normalized Ratio 1.57
[2022-09-04 07:51] LABS: Influenza A, PCR NEGATIVE (NEGATIVE); Influenza B, PCR NEGATIVE (NEGATIVE); Resp Syncytial Virus, PCR NEGATIVE (NEGATIVE); SARS-Cov-2 (COVID-19) PCR, MMC NEGATIVE (NEGATIVE)
== END 2022-09-04 08:27 | disposition short-term general hospital (02) ==
LOC: ER 05:18
PROVIDERS: Emergency Medicine
DX: K92.2 Gastrointestinal hemorrhage, unspecified (principal); F17.210 Nicotine dependence, cigarettes, uncomplicated; Z20.822 Contact with and (suspected) exposure to COVID-19; Z79.899 Other long term (current) drug therapy
CPT/HCPCS: 0241U; 36415; 36430; 80053; 85025; 85610; 85730; 86850; 86900; 86901; 86923; 93005; 93010; 96365; 96375; 96376; 99285-25; C9113; G0480; J0696; J0780; J1200; J2354; J2550; J3010; J7030; P9016

== ENCOUNTER 2022-09-14 18:34 | Observation (INO) | payer OTHER ==
[~2022-09-14] VITALS: Ht 170.2 cm; Wt 59.7 kg
[~2022-09-14 18:34] MED LIST changes: -OMEP20ER PO; +PANT20 PO
[2022-09-14 19:26] LABS: BASOPHILS ABSOLUTE AUTO 0.07 K/mm3 (0.00-0.23); BASOPHILS PERCENT AUTO 1 % (0-2); EOSINOPHILS ABSOLUTE AUTO 0.18 K/mm3 (0.00-0.68); EOSINOPHILS PERCENT AUTO 2 % (0-6); Hematocrit 22.5 % (37.0-53.0); Hemoglobin 6.9 g/dL (13.5-17.5); IMMATURE GRAN ABSOLUTE AUTO 0.05 K/mm3 (0.00-0.10); IMMATURE GRAN PERCENT AUTO 1 % (0-1); LYMPHOCYTES ABSOLUTE AUTO 3.13 K/mm3 (0.84-5.20); LYMPHOCYTES PERCENT AUTO 40 % (21-46); MONOCYTES ABSOLUTE AUTO 0.55 K/mm3 (0.16-1.47); MONOCYTES PERCENT AUTO 7 % (4-13); Mean Corpuscular HGB 24.8 pg (26.0-34.0); Mean Corpuscular HGB Conc 30.7 g/dL (31.5-36.5); Mean Corpuscular Volume 81 fL (80-100); Mean Platelet Volume 9.1 fL (9.1-12.4); NEUTROPHILS ABSOLUTE AUTO 3.84 K/mm3 (1.96-9.15); NEUTROPHILS PERCENT AUTO 49 % (41-73); Platelet Count 244 K/mm3 (150-400); RDW Coefficient Variation 19.7 % (11.7-14.2); RDW Standard Deviation 58.4 fL (35.1-46.3); Red Blood Cell Count 2.78 M/mm3 (4.30-5.90); White Blood Cell Count 7.82 K/mm3 (4.00-11.30)
[2022-09-14 19:52] LABS: Albumin, Blood 2.7 g/dL (3.4-5.0); Albumin/Globulin Ratio 0.7 (0.8-1.8); Bilirubin, Total 0.5 mg/dL (0.1-1.0); Bun/Creatinine Ratio 25.6 (12.0-20.0); Creatinine, Blood 0.59 mg/dL (0.60-1.20); Globulin, Blood 3.7 g/dL (2.2-4.0); Potassium, Blood 4.5 mmol/L (3.5-5.5); Total Protein, Blood 6.4 g/dL (6.4-8.2)
[2022-09-15] VITALS (66 sets, daily range): BP systolic 83–143; BP diastolic 49–110
--- NOTE | 2022-09-15 02:18 | NUR ---
ASSUMED CARE PT A&O X4, SPO2 >92% ON RA, >65 MAP. PT ARRIVED WITH VERY PALE COMPLEXION, NAUSEATED, AND 7/10 ABDOMINAL PAIN. NO BM OR EMESIS AT TIME OF THIS NOTE. PT TOLD THIS RN HE HAD A PINT OF VODKA 09/13/22 AND ANOTHER PINT THE WEEK BEFORE. ONE UNIT OF PRBC INITIATED. OCTREOTIDE AND PROTONIX INFUSING PER ORDER.
--- NOTE | 2022-09-15 05:10 | NUR ---
UPDATE MEROPENUM GIVEN TO PT MED ERROR. MEDICATION WAS ON PT'S EMAR, AND THIS RN BELIEVED IT TO BE USED EMPIRICALLY D/T PT'S SLIGHTLY ELEVATED TEMPERATURE. ORDER PLACED BY PHARMACIST.
--- NOTE | 2022-09-15 05:12 | NUR ---
UPDATE ONE UNIT PRBC INFUSED. PT STATES HE FEELS BETTER. NO REACTIONS DURING PROCEDURE.
[2022-09-15 05:49] LABS: BASOPHILS ABSOLUTE AUTO 0.02 K/mm3 (0.00-0.23); BASOPHILS PERCENT AUTO 0 % (0-2); EOSINOPHILS ABSOLUTE AUTO 0.02 K/mm3 (0.00-0.68); EOSINOPHILS PERCENT AUTO 0 % (0-6); Hematocrit 19.3 % (37.0-53.0); Hemoglobin 6.1 g/dL (13.5-17.5); IMMATURE GRAN ABSOLUTE AUTO 0.02 K/mm3 (0.00-0.10); IMMATURE GRAN PERCENT AUTO 0 % (0-1); LYMPHOCYTES PERCENT AUTO 23 % (21-46); MONOCYTES ABSOLUTE AUTO 0.76 K/mm3 (0.16-1.47); MONOCYTES PERCENT AUTO 12 % (4-13); Mean Corpuscular HGB 25.5 pg (26.0-34.0); Mean Corpuscular HGB Conc 31.6 g/dL (31.5-36.5); Mean Corpuscular Volume 81 fL (80-100); Mean Platelet Volume 9.3 fL (9.1-12.4); NEUTROPHILS ABSOLUTE AUTO 3.99 K/mm3 (1.96-9.15); NEUTROPHILS PERCENT AUTO 64 % (41-73); Platelet Count 127 K/mm3 (150-400); RDW Coefficient Variation 18.6 % (11.7-14.2); RDW Standard Deviation 55.3 fL (35.1-46.3); Red Blood Cell Count 2.39 M/mm3 (4.30-5.90); White Blood Cell Count 6.21 K/mm3 (4.00-11.30)
--- NOTE | 2022-09-15 05:54 | NUR ---
SHIFT SUMMARY PT IS A&O X4; SPO2 >92% ON RA; MAP >65. NO C/O'S OF CP, NAUSEA, NUMBNESS OR TINGLING. PT STATES MILD SOB THAT HAS BEEN PRESENT SINCE START OF SYMPTOMS. 1 UNIT OF PRBC UNIT INFUSED; PT STATES HE FEELS MUCH BETTER AND IS NO LONGER SOB. PT COMPLAINS OF STOMACH PAIN THAT IS MANAGED WELL W/ FENTANYL PER ORDER. PT ALSO INFORMED THIS RN THAT HE HAS BEEN DRINKING A PINT OF VODKA WEEKLY AND THAT THIS LAST TIME WAS NOT ISOLATED. NO OTHER ACUTE EVENTS SINCE PREVIOUS UPDATES.
[2022-09-15 06:17] LABS: Albumin, Blood 2.5 g/dL (3.4-5.0); Albumin/Globulin Ratio 0.7 (0.8-1.8); Bilirubin, Total 2.1 mg/dL (0.1-1.0); Bun/Creatinine Ratio 35.6 (12.0-20.0); Calcium, Blood 7.6 mg/dL (8.5-10.1); Creatinine, Blood 0.65 mg/dL (0.60-1.20); Globulin, Blood 3.4 g/dL (2.2-4.0); Potassium, Blood 4.9 mmol/L (3.5-5.5); Total Protein, Blood 5.9 g/dL (6.4-8.2)
--- NOTE | 2022-09-15 06:33 | NUR ---
UPDATE PT HR HAS BEEN IN THE 60'S WITH A FEW DIPS INTO THE 50'S AND A SINGLE DIP DOWN TO 49.
[2022-09-15 11:01] LABS: Hematocrit 22.9 % (37.0-53.0); Hemoglobin 7.4 g/dL (13.5-17.5)
--- NOTE | 2022-09-15 16:47 | NUR ---
09/15/22 Renea Plasencia History, Chart, Medications and Allergies reviewed before start of procedure.MONITOR INTACT WITH CONTINUOUS PULSE OXIMETRY AND INTERMITTENT BP.3-LEAD EKG REVIEWED WITH PHYSICIAN PRIOR TO START OF PROCEDURE.O2 VIA N/C INTACT THROUGHOUT SEDATION/PROCEDURE. Bite Block Placed. PATIENT DETERMINED TO BE ASA APPROPRIATE FOR PROPOFOL SEDATION PRIOR TO START OF PROCEDURE BY .
[2022-09-15 17:52] LABS: Hematocrit 23.2 % (37.0-53.0); Hemoglobin 7.5 g/dL (13.5-17.5)
--- NOTE | 2022-09-15 18:36 | NUR ---
SHIFT SUMMARY ASSUMED CARE OF PT AT 0700 THIS AM. TRANSFUSED ONE UNIT PRBCs PER MD ORDERS, PT TOLERATED WELL. MEDICATED PER EMAR FOR ABD PAIN T/O THE DAY. EGD THIS AFTERNOON SHOWS GASTRITIS WITHOUT ACITVE BLEEDING AT THIS TIME PER REPORT. PT RETURNS TO ROOM AWAKE AND ALERT, TOLERATED PROCEDURE WELL. DR PAUL NOTIFIED OF EGD RESULTS AND HIS STATUS IS CHANGED TO PCU. NO ACUTE EVENTS T/O THE SHIFT. CALL LIGHT IN REACH, WILL CONTINUE TO MONITOR AND GIVE REPORT TO NOC SHIFT RN.
--- NOTE | 2022-09-15 19:42 | NUR ---
ASSUMED CARE PT IS A&O X4; SPO2 >92% ON RA; MAP >65. NO C/O OF CP, SOB, OR NAUSEA. MILD ABDOMINAL PAIN. INFORMED PER REPORT THAT PT TO BE MADE MEDICAL STATUS PER DR. MCLEOD. PT ATE 80% OF MEAL. DR MCLEOD AT BEDSIDE AT START OF SHIFT. S/O CURRENTLY AT BEDSIDE W/ PT.
--- NOTE | 2022-09-15 21:05 | NUR ---
UPDATE DR RUDD CALLED AND PT MADE MED STATUS W/ NO TELE PER DR MCLEOD'S ASSESSMENT THAT PT WOULD BE OK MED STATUS (PER NURSING REPORT/NURSE NOTIFY).
[2022-09-16] VITALS (12 sets, daily range): BP systolic 99–124; BP diastolic 68–84
--- NOTE | 2022-09-16 05:08 | NUR ---
SHIFT SUMMARY PT IS A&O X4; MAP >65; SPO2 >92% ON RA. PT SLEPT WELL T/O NIGHT W/ THE PT INFORMING THIS RN ABOUT ABDOMINAL PAIN TWICE THIS AM. NO BOWEL MOVEMENT THIS SHIFT.
--- NOTE | 2022-09-16 09:28 | NUR ---
AM NOTE... ASSUMED CARE OF PT AT 0700, PT IS A&Ox4 AND IND IN THE ROOM. PT IS ON RA WITH O2 SATS>95% L/S CLEAR T/O RR IS 14. BP IS STABLE, NO SWELLING OR EDEMA IS NOTED ON ASSESSMENT. BT PRESENT AND HYPERACTIVE, ABD IS SOFT AND TENDER TO PALPATION. PT IS C/O OF 6/10 ABD PAIN. PLAN IS FOR THE PT TO D/C HOME TODAY. WILL CONTINUE TO MONITOR.
[2022-09-16 10:13] LABS: BASOPHILS ABSOLUTE AUTO 0.04 K/mm3 (0.00-0.23); BASOPHILS PERCENT AUTO 1 % (0-2); EOSINOPHILS ABSOLUTE AUTO 0.09 K/mm3 (0.00-0.68); EOSINOPHILS PERCENT AUTO 2 % (0-6); Hematocrit 21.1 % (37.0-53.0); Hemoglobin 6.7 g/dL (13.5-17.5); IMMATURE GRAN ABSOLUTE AUTO 0.06 K/mm3 (0.00-0.10); IMMATURE GRAN PERCENT AUTO 1 % (0-1); LYMPHOCYTES ABSOLUTE AUTO 1.52 K/mm3 (0.84-5.20); LYMPHOCYTES PERCENT AUTO 31 % (21-46); MONOCYTES ABSOLUTE AUTO 0.48 K/mm3 (0.16-1.47); MONOCYTES PERCENT AUTO 10 % (4-13); Mean Corpuscular HGB 26.2 pg (26.0-34.0); Mean Corpuscular HGB Conc 31.8 g/dL (31.5-36.5); Mean Corpuscular Volume 82 fL (80-100); Mean Platelet Volume 9.2 fL (9.1-12.4); NEUTROPHILS ABSOLUTE AUTO 2.79 K/mm3 (1.96-9.15); NEUTROPHILS PERCENT AUTO 56 % (41-73); NRBC ABSOLUTE 0.02 K/mm3 (0.00-0.02); NRBC Auto 0.4 /100 WBC (0.0-0.2); Platelet Count 110 K/mm3 (150-400); RDW Coefficient Variation 18.3 % (11.7-14.2); Red Blood Cell Count 2.56 M/mm3 (4.30-5.90); White Blood Cell Count 4.98 K/mm3 (4.00-11.30)
--- NOTE | 2022-09-16 14:46 | NUR ---
PT TRANSFER.... PT WAS GIVEN 1 UNIT OF PRBCs FOR A HGB OF 6.7. PT TOLERATED THIS WELL. VS STABLE. PT IS TO TRANFER TO RM 211. REPORT GIVEN TO TORRES NICOLE. ALL OF PT'S BELONINGS PACKED AND SENT WITH THE PT.
--- NOTE | 2022-09-16 15:20 | NUR ---
PT TRANSFERRED TO ROOM VIA WHEELCHAIR, A/O X 4, VSS. PT AND SO IN ROOM, PROVIDED WITH CALL LIGHT AND ROOM ORIENTATION, PO SNACK AND FLUIDS PROVIDED.
--- NOTE | 2022-09-16 15:43 | NUR ---
LAB IN ROOM WITH PT DRAWING H/H
[2022-09-16 16:02] LABS: Hemoglobin 8.5 g/dL (13.5-17.5)
--- NOTE | 2022-09-16 17:08 | NUR ---
DR BROWN ROUNDING ON PATIENT
--- NOTE | 2022-09-16 17:29 | NUR ---
PROVIED PT AND SO WITH DISCHARGE INSTRUCTIONS AND TEACHING; PT STATES UNDERSTANDING OF INSTRUCTIONS. PERIPHERAL IV REMOVED WNL. PT DENIES NEEDING A WHEELCHAIR, WISHES TO AMBULATE TO THEIR VEHICLE. SO CARRIED PATIENT'S BELONGINGS.
== END 2022-09-16 18:20 | disposition home or self-care (01) ==
LOC: ER 18:34 → ICUW 18:35 → SURS 09-16 14:47
PROVIDERS: Internal Medicine; Internal Medicine Gastroenterology; Student in an Organized Health Care Education/Training Program; ADMIT Internal Medicine
PROC: 0DJ08ZZ Inspection of Upper Intestinal Tract, Via Natural or Artificial Opening Endoscopic (ICD-10-PCS; principal; 2022-09-15 14:00)
DX: K76.6 Portal hypertension (principal); K31.89 Other diseases of stomach and duodenum; D62 Acute posthemorrhagic anemia; D50.9 Iron deficiency anemia, unspecified; K70.30 Alcoholic cirrhosis of liver without ascites; D69.59 Other secondary thrombocytopenia; I85.01 Esophageal varices with bleeding; K22.11 Ulcer of esophagus with bleeding; F10.20 Alcohol dependence, uncomplicated; K29.71 Gastritis, unspecified, with bleeding; F17.210 Nicotine dependence, cigarettes, uncomplicated; Z86.19 Personal history of other infectious and parasitic diseases; Z79.899 Other long term (current) drug therapy
CPT/HCPCS: 36415; 36430; 80053; 83690; 85014; 85018; 85025; 86850; 86900; 86901; 86923; 96365; 96366; 96367; 96375; 96376; 99285-25; A9270; C9113; G0378; J0171; J0610; J0612; J0696; J1430; J2001; J2185; J2250; J2354; J2405; J2704; J2765; J3010; J3411; J7030; J7050; J7120; P9016

== ENCOUNTER 2022-09-17 05:31 | Inpatient (IN) | payer OTHER ==
[~2022-09-17] VITALS: Ht 175.3 cm; Wt 58.2 kg
[2022-09-17 05:44] LABS: BASOPHILS ABSOLUTE AUTO 0.08 K/mm3 (0.00-0.23); BASOPHILS PERCENT AUTO 1 % (0-2); EOSINOPHILS ABSOLUTE AUTO 0.13 K/mm3 (0.00-0.68); EOSINOPHILS PERCENT AUTO 1 % (0-6); Hematocrit 21.1 % (37.0-53.0); Hemoglobin 6.7 g/dL (13.5-17.5); IMMATURE GRAN ABSOLUTE AUTO 0.14 K/mm3 (0.00-0.10); IMMATURE GRAN PERCENT AUTO 1 % (0-1); LYMPHOCYTES ABSOLUTE AUTO 4.52 K/mm3 (0.84-5.20); LYMPHOCYTES PERCENT AUTO 46 % (21-46); MONOCYTES ABSOLUTE AUTO 0.65 K/mm3 (0.16-1.47); MONOCYTES PERCENT AUTO 7 % (4-13); Mean Corpuscular HGB 27.1 pg (26.0-34.0); Mean Corpuscular HGB Conc 31.8 g/dL (31.5-36.5); Mean Corpuscular Volume 85 fL (80-100); Mean Platelet Volume 8.8 fL (9.1-12.4); NEUTROPHILS ABSOLUTE AUTO 4.41 K/mm3 (1.96-9.15); NEUTROPHILS PERCENT AUTO 45 % (41-73); NRBC ABSOLUTE 0.03 K/mm3 (0.00-0.02); NRBC Auto 0.3 /100 WBC (0.0-0.2); Platelet Count 190 K/mm3 (150-400); RDW Coefficient Variation 18.2 % (11.7-14.2); Red Blood Cell Count 2.47 M/mm3 (4.30-5.90); White Blood Cell Count 9.93 K/mm3 (4.00-11.30)
[2022-09-17 05:45] LABS: Calcium, Ionized (POC) 1.08 mmol/L (1.10-1.46); Chloride (POC) 111 mmol/L (98-108); Creatinine (POC) 1.5 mg/dL (0.8-1.3); Glucose (ISTAT POC) 174 mg/dL (70-99); Hemoglobin (POC) 6.8 g/dL (13.5-17.5); Potassium (POC) 3.2 mmol/L (3.5-5.5); Sodium (POC) 148 mmol/L (135-148); Total CO2 (POC) 20 mmol/L (21-32)
[2022-09-17 06:14] LABS: Albumin, Blood 2.4 g/dL (3.4-5.0); Albumin/Globulin Ratio 0.8 (0.8-1.8); Bilirubin, Direct 0.4 mg/dL (0.0-0.3); Bilirubin, Indirect 0.2 mg/dL (0.1-0.7); Bilirubin, Total 0.6 mg/dL (0.1-1.0); Bun/Creatinine Ratio 9.8 (12.0-20.0); Calcium, Blood 7.5 mg/dL (8.5-10.1); Creatinine, Blood 1.23 mg/dL (0.60-1.20); Globulin, Blood 3.1 g/dL (2.2-4.0); Potassium, Blood 3.3 mmol/L (3.5-5.5); Total Protein, Blood 5.5 g/dL (6.4-8.2)
[2022-09-17 06:24] LABS: International Normalized Ratio 1.44; Prothrombin Time Results 14.8 Sec (9.7-11.5)
[2022-09-17 08:20] LABS: Hematocrit 30.1 % (37.0-53.0); Hemoglobin 10.1 g/dL (13.5-17.5)
--- NOTE | 2022-09-17 09:01 | NUR ---
ADMIT PT ARRIVED FROM ED, TRANSFERRED TO ICU BED. PT ALERT AND ORIENTED, BUT RESTS WITH EYES CLOSED WHEN LEFT ALONE. LAB IN ROOM TO DRAW H/H. PROTONIX AND OCTREOTIDE INFUSING. CALCIUM GLUCONATE STARTED. BP STABLE AT THIS TIME WITH MAP ABOVE 65. PT DENIES NAUSEA. EMESIS BAG WITHIN REACH. CONTINUING TO MONITOR.
--- NOTE | 2022-09-17 12:08 | NUR ---
REASSESSMENT PT HAS BEEN RESTING SINCE ADMIT. HE WAKES EASILY TO VOICE AND IS ORIENTED. DR. BROWN CAME BY AND GAVE OK FOR HIM TO HAVE FULL LIQUID DIET. PT HAS HAD SOME WATER AND NOT HAD ANY SUBSEQUENT NAUSEA. LUNGS ARE CLEAR, RA, SR, BP STABLE. CONTINUING TO MONITOR.
[2022-09-17 12:32] LABS: Hematocrit 27.1 % (37.0-53.0); Hemoglobin 9.2 g/dL (13.5-17.5)
--- NOTE | 2022-09-17 16:53 | NUR ---
SHIFT SUMMARY PT HAS BEEN SLEEPING IN BED THROUGHOUT THE SHIFT. HE HAD SOME NAUSEA AROUND 1300 THAT WAS RELIEVED WITH MEDICATION, NO EMESIS. HE HAD A DARK, FORMED BM TODAY. HE GOT UP TO THE COMMODE, DENIED DIZZINES IN DOING SO. LUNGS ARE CLEAR, RA. SR, BP STABLE. PT'S GF VISITED AT THE BEDSIDE BRIEFLY THIS AFTERNOON. PROTONIX AND OCTREOTIDE INFUSING.
[2022-09-17 18:33] LABS: Hematocrit 25.8 % (37.0-53.0)
--- NOTE | 2022-09-17 21:06 | NUR ---
2000- Vitals stable, NSR in the 60s. Medicated with 1mg ativan per [facility] protocol due to anxiety, nausea. 2029- HR now in the low 100s, Sinus tach. 2100- HR jumped up to 110-130s, Sinus tach. Dr. Dempsey notified. Instructed to continue to monitor and call for drop in BP or signs of active bleeding.
[2022-09-17 21:51] LABS: Hematocrit 21.4 % (37.0-53.0); Hemoglobin 7.3 g/dL (13.5-17.5)
[2022-09-18 00:17] LABS: Hematocrit 26.9 % (37.0-53.0); Hemoglobin 8.9 g/dL (13.5-17.5)
[2022-09-18 02:20] LABS: Hematocrit 25.7 % (37.0-53.0); Hemoglobin 8.7 g/dL (13.5-17.5)
--- NOTE | 2022-09-18 05:26 | NUR ---
SHIFT SUMMARY: At the beginning of the shift, patient was stable with no active bleeding. See previous RN note for event summary- patient became unstable and began vomiting blood at around 2100. Large volumes of bloody stool and emesis throughout the shift. Patient has been nearly constantly vomiting blood despite giving zofran and reglan. 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 Total of 2 units PRBCs and 2 units FFP given. On vasopressin, levophed started but weaned off as of 514. Rectal tube placed. As of 527, patient is resting, sinus tach in the low 100s and BPs maintaining MAP>65. Girlfriend at bedside.
[2022-09-18 06:20] LABS: BASOPHILS ABSOLUTE AUTO 0.07 K/mm3 (0.00-0.23); BASOPHILS PERCENT AUTO 0 % (0-2); EOSINOPHILS ABSOLUTE AUTO 0.02 K/mm3 (0.00-0.68); EOSINOPHILS PERCENT AUTO 0 % (0-6); Hematocrit 18.2 % (37.0-53.0); IMMATURE GRAN ABSOLUTE AUTO 0.62 K/mm3 (0.00-0.10); IMMATURE GRAN PERCENT AUTO 2 % (0-1); LYMPHOCYTES ABSOLUTE AUTO 2.26 K/mm3 (0.84-5.20); LYMPHOCYTES PERCENT AUTO 8 % (21-46); MONOCYTES ABSOLUTE AUTO 1.54 K/mm3 (0.16-1.47); MONOCYTES PERCENT AUTO 6 % (4-13); Mean Corpuscular HGB 30.2 pg (26.0-34.0); Mean Platelet Volume 10.3 fL (9.1-12.4); NEUTROPHILS ABSOLUTE AUTO 22.44 K/mm3 (1.96-9.15); NEUTROPHILS PERCENT AUTO 83 % (41-73); NRBC ABSOLUTE 0.18 K/mm3 (0.00-0.02); NRBC Auto 0.7 /100 WBC (0.0-0.2); Platelet Count 149 K/mm3 (150-400); RDW Coefficient Variation 16.4 % (11.7-14.2); RDW Standard Deviation 49.1 fL (35.1-46.3); Red Blood Cell Count 1.99 M/mm3 (4.30-5.90); White Blood Cell Count 26.95 K/mm3 (4.00-11.30)
[2022-09-18 06:39] LABS: Albumin, Blood 2.3 g/dL (3.4-5.0); Bilirubin, Total 1.5 mg/dL (0.1-1.0); Bun/Creatinine Ratio 29.8 (12.0-20.0); Calcium, Blood 7.4 mg/dL (8.5-10.1); Creatinine, Blood 0.81 mg/dL (0.60-1.20); Globulin, Blood 2.4 g/dL (2.2-4.0); Mean Corpuscular Volume 92 fL (80-100); Potassium, Blood 4.1 mmol/L (3.5-5.5); Total Protein, Blood 4.7 g/dL (6.4-8.2)
--- NOTE | 2022-09-18 06:52 | NUR ---
Critical lab value: Hemoglobin 6.0. Attempted to call Dr. Urena, no answer. Notified discharge specialist Heidi. Will call oncoming misty COSTA after 0700 if no response. Patient back on levophed due to hypotension and has become more tachycardic- now HR in the 120s. Still vomiting up blood.
--- NOTE | 2022-09-18 09:20 | NUR ---
ASSUME CARE: I assumed care of this patient at 0700. Power glide was unsuccessfully attempted on the left upper arm. Pt with persistant hematemesis and bloody output into rectal bag. Dr Ruiz called and informed of pt status. Palliative care at bedside with patient family.
--- NOTE | 2022-09-18 09:51 | NUR ---
Spoke with Primary RN Gloria and discussed case. Pt admitted for end stage liver failure. Pt having significant blood loss. Pt in bed vomiting blood. Rectal bag also has significant blood. Pt appears lethargic and painful. Gloria recently provided pain medication and antinausea medication. Met with Pt's mom Keysha and Pt's girlfriend Laura. Gentle discussion regarding advanced care planning in the importance of potentially planning for the future. Discussed the possibility of needing to consider comfort care pending further testing and physician recommendations. Offered therapeutic listening and answered questions. Spoke with Dr Ruiz and discussed case. Palliative Care will F/U for therapeutic visits.
--- NOTE | 2022-09-18 12:31 | NUR ---
Careteam meeting with family. Options discussed including transfering to [facility] and considering comfort care. Family educated on comfort care philosophy with V/U made by family. Pt confused and unable to make decisions at this time. Questions answered and concerns validated. Family present is Pt's mother and girlfriend. Family elects comfort care reporting Pt does not want to transfer and has reached a point with his illness that comfort care would be his wishes. Continued supportive visit. Placed comfort care order, comfort care order set, and D/C maintenance medications per V/O from Dr Lou. Palliative Care will F/U for supportive visits and symptom managmeent.
--- NOTE | 2022-09-18 13:31 | NUR ---
Spiritual care visit conducted. Patient's mother, Keysha and SO Laura are in the hallway just outside the ICU. We talk about pt's history with alcoholism, about his personality (when sober) and about their relationships with him. We then move into the pt's rm where several discussions with the medical staff take place that result in a very clear decision from the patient's Proxy, Laura to d/c aggressive treatment and change pt's status to comfort care only. I have several discussions with the family about aligning their medical decision making with the patient's wishes and considering not only his words but also what the pt's life choices and struggles have been saying to them so that the weight of their decisions does not rest on them but on the pt. I provide therapeutic listening, gentle employee counselor and prayer. Family responded well and showed signs of peace about the direction of pt's medical care. I will continue to remain available to patient and family.
--- NOTE | 2022-09-18 16:38 | NUR ---
SHIFT SUMMARY/TRANSFER: Pt transitioned to comfort care. Scopalamine patch placed behind right ear. Pt using urinal with assistance. He is still able to voice his needs. Pt eating ice chips currently. Family at bedside and supportive. Report given to medical floor RN.
--- NOTE | 2022-09-18 17:28 | NUR ---
SHIFT SUMMARY PATIENT TRANSFERRED TO ROOM 313 FROM ICU12. PATIENT SETTLED WITH FAMILY PRESENT. PATIENT INDICATES NO NEEDS CURRENTLY. PATIENT AND FAMILY RESTING. WILL MONITOR UNTIL SHIFT CHANGE.
--- NOTE | 2022-09-19 03:44 | NUR ---
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 PATIENT IS SOMNOLENT, BUT COMMUNICATES NEEDS APPROPRIATELY DURING EPISODES OF WAKEFULNESS. RR EVEN AND UNLABORED ON RA. SANDROSTATIN AND PROTONIX INFUSING CONTINUOUSLY THROUGH LEFT IG. NO OUTPUT FROM RECTAL TUBE THIS SHIFT. PAIN ASSESSED AND MEDICATED PER EMAR. BED LOW AND LOCKED. CALL LIGHT WITHIN REACH. THIS RN WILL CONTINUE TO MONITOR, PATIENT'S GIRLFRIEND IS AT BEDSIDE.
[2022-09-19 11:37] LABS: BASOPHILS ABSOLUTE AUTO 0.03 K/mm3 (0.00-0.23); BASOPHILS PERCENT AUTO 0 % (0-2); EOSINOPHILS ABSOLUTE AUTO 0.12 K/mm3 (0.00-0.68); EOSINOPHILS PERCENT AUTO 1 % (0-6); IMMATURE GRAN ABSOLUTE AUTO 0.19 K/mm3 (0.00-0.10); IMMATURE GRAN PERCENT AUTO 1 % (0-1); LYMPHOCYTES ABSOLUTE AUTO 2.94 K/mm3 (0.84-5.20); LYMPHOCYTES PERCENT AUTO 20 % (21-46); MONOCYTES ABSOLUTE AUTO 1.53 K/mm3 (0.16-1.47); MONOCYTES PERCENT AUTO 10 % (4-13); Mean Corpuscular HGB 30.6 pg (26.0-34.0); Mean Corpuscular Volume 88 fL (80-100); Mean Platelet Volume 10.6 fL (9.1-12.4); NEUTROPHILS ABSOLUTE AUTO 10.24 K/mm3 (1.96-9.15); NEUTROPHILS PERCENT AUTO 68 % (41-73); NRBC ABSOLUTE 0.08 K/mm3 (0.00-0.02); NRBC Auto 0.5 /100 WBC (0.0-0.2); Platelet Count 92 K/mm3 (150-400); RDW Coefficient Variation 17.4 % (11.7-14.2); RDW Standard Deviation 48.9 fL (35.1-46.3); Red Blood Cell Count 1.86 M/mm3 (4.30-5.90); White Blood Cell Count 15.05 K/mm3 (4.00-11.30)
[2022-09-19 11:41] LABS: Hematocrit 16.3 % (37.0-53.0); Hemoglobin 5.7 g/dL (13.5-17.5)
--- NOTE | 2022-09-19 12:08 | NUR ---
Spiritual care visit conducted. Patient is lying in bed and alert. Patient talks about his desire to work toward a different code status if there is possibly a higher degree of hope for a better medical outcome. We then talk at length about the matters of the heart. We discuss the things he is now able to say to his kids that he was almost unable to communicate. We explore his fears about dying (the unknowns about the possible painful process and the unknowns about the afterlife). We talk about his noris and what one might say if he is dying and if he may come out of this alive. We talk about his fears of failure of living because he is afraid he might "f___ it up" again. We also talk about forgiveness of God, others and himself. I normalize his feelings, hear confession and provide therapeutic listening, spiritual guidance and prayer. Patient responded well and displayed evidence of increased peace and resolve to live. I will continue to remain available to patient and family.
[2022-09-19 12:55] LABS: Albumin, Blood 1.7 g/dL (3.4-5.0); Albumin/Globulin Ratio 0.9 (0.8-1.8); Alk Phos 38 U/L (50-136); Anion Gap 4 mmol/L (6-16); Aspartate Aminotrans (AST/SGOT 37 U/L (12-37); Bilirubin, Direct 0.5 mg/dL (0.0-0.3); Bilirubin, Indirect 0.5 mg/dL (0.1-0.7); Blood Urea Nitrogen 41 mg/dL (8-24); Bun/Creatinine Ratio 18.7 (12.0-20.0); CO2, Blood 24 mmol/L (21-32); Calcium, Blood 6.8 mg/dL (8.5-10.1); Chloride, Blood 112 mmol/L (98-108); Creatinine, Blood 2.19 mg/dL (0.60-1.20); Globulin, Blood 1.9 g/dL (2.2-4.0); Glomerular Filtration Rate 40 (60-); Glucose, Blood 144 mg/dL (70-99); Magnesium, Blood 1.6 mg/dL (1.6-2.4); Phosphorus, Blood 4.1 mg/dL (2.5-4.9); Potassium, Blood 3.9 mmol/L (3.5-5.5); Sodium, Blood 140 mmol/L (136-145); Total Protein, Blood 3.6 g/dL (6.4-8.2)
[2022-09-19 13:09] LABS: Alanine Aminotransfer (ALT/SGP 22 U/L (12-78)
--- NOTE | 2022-09-19 19:37 | NUR ---
SHIFT SUMMARY PT RESTING QUIETLY AT START OF SHIFT. WOKE EASILY FOR CARE. SANDOSTATIN AND PROTONIX DRIP INFUSING PER EMAR. PT COMFORT CARE FIRST HALF OF SHIFT, LATER CHANGED TO FULL CARE PER DR LANCASTER, AFTER TALKING WITH FAMILY. PT TO RECEIVE IV ABX AND 2 UNITS PRBC'S TODAY AND RE-EVAL TOMORROW. PT TOLERATED 1ST UNIT WELL. 2ND UNIT NOW INFUSING. FAMILY REMAIN IN RM AT THIS TIME. PT MEDICATED FOR C/O PAIN/NAUSEA PER EMAR. PT SLEEPING MOST OF THE DAY, RESTING BETTER WHEN FAMILY NOT IN RM. DR BROWN IN TO SEE PT TONIGHT AND DISCUSSED PLAN OF CARE. VS REMAIN STABLE; SEE CHART. DENIED FURTHER NEEDS AT THIS TIME. CALL LT IN REACH.
--- NOTE | 2022-09-20 05:17 | NUR ---
SHIFT SUMMARY; NO ACUTE CHANGES OVERNIGHT. THE PT IS AXO X4, BUT DROWSY. THE PT HAS WAVES OF NAUSEA FOR WHICH HE IS MEDICATED FOR. THE PT ALSO HAS ABDOMINAL PAIN FOR WHICH HE IS MEDICATED FOR. SANDOSTATIN AND PROTONIX REMAIN ON A CONTINOUS DRIP. THE PT HAS RECIEVED 1.5 UNITS OF BLOOD THIS SHIFT, HE TOLERATED THEM WELL. THE PTS IJ IS PATENT AND APPEARS TO BE WORKING WELL. THE PTS RECTAL TUBE IS IN PLACE, MINIMAL LEAKAGE AROUND THE TUBE, THE ONLY LEAKAGE IS VAL RED BLOOD. THE PT IS PASSING SMALL AMOUNTS OF VAL RED BLOODY STOOL. THE PT IS 1 ASSIST TO THE EDGE OF THE BED WHERE HE THEN USES THE URINAL INDEPENDENTLY. THE PT DENIES ANY SOB, CHEST PAIN/PRESSURE THIS SHIFT. CURRENTLY THE PT IS SLEEPING IN BED WITH THE BED IN THE LOWEST POSITION AND THE CALL LIGHT AT BEDSIDE.
[2022-09-20 05:36] LABS: Hematocrit 22.2 % (37.0-53.0); Hemoglobin 7.6 g/dL (13.5-17.5); Mean Corpuscular HGB 29.3 pg (26.0-34.0); Mean Corpuscular HGB Conc 34.2 g/dL (31.5-36.5); Mean Corpuscular Volume 86 fL (80-100); Mean Platelet Volume 10.2 fL (9.1-12.4); NRBC Auto 1.1 /100 WBC (0.0-0.2); Platelet Count 70 K/mm3 (150-400); RDW Coefficient Variation 17.1 % (11.7-14.2); RDW Standard Deviation 48.8 fL (35.1-46.3); Red Blood Cell Count 2.59 M/mm3 (4.30-5.90); White Blood Cell Count 9.26 K/mm3 (4.00-11.30)
[2022-09-20 05:51] LABS: Albumin, Blood 1.9 g/dL (3.4-5.0); Anion Gap 5 mmol/L (6-16); Blood Urea Nitrogen 38 mg/dL (8-24); Bun/Creatinine Ratio 18.3 (12.0-20.0); CO2, Blood 23 mmol/L (21-32); Calcium, Blood 7.4 mg/dL (8.5-10.1); Chloride, Blood 114 mmol/L (98-108); Creatinine, Blood 2.08 mg/dL (0.60-1.20); Glomerular Filtration Rate 43 (60-); Glucose, Blood 122 mg/dL (70-99); Phosphorus, Blood 3.8 mg/dL (2.5-4.9); Potassium, Blood 3.9 mmol/L (3.5-5.5); Sodium, Blood 142 mmol/L (136-145)
--- NOTE | 2022-09-20 13:09 | NUR ---
Alcides is lying in bed and resting but in and out of the conversation. He has many family members in the room. They talk about the new developements in the patient's condition. We discuss the new spiritual journey the patient has been on since his second chance at life and their collective commitment to help him live a healthier life. I provide therapeutic listening, gentle vocational counselor and prayer. The patient and family responded wel and voice their appreciation for the prayer. I will continue to remain available to patient and family.
--- NOTE | 2022-09-20 18:31 | NUR ---
SHIFT SUMMARY- PT IS A/O, PLESANT AND COOPERATIVE. RECTAL TUBE WAS REMOVED TODAY. DR. MCLEOD SAW THE PT AND WILL PREFORM AN EGD TOMORROW AFTERNOON. FAMILY WAS AT BEDSIDE MOST OF THIS SHIFT. PT DID HAVE ONE BM AFTER THE TUBE WAS REMOVED. HE IS RECIEVING PAIN MEDICATIONS NEEDED. PALATIVE CARE WORKING WITH PT AND FAMILY.
[2022-09-21 05:42] LABS: Hematocrit 21.5 % (37.0-53.0); Hemoglobin 7.1 g/dL (13.5-17.5); Mean Corpuscular HGB 29.3 pg (26.0-34.0); Mean Corpuscular Volume 89 fL (80-100); Platelet Count 60 K/mm3 (150-400); RDW Coefficient Variation 17.1 % (11.7-14.2); RDW Standard Deviation 53.1 fL (35.1-46.3); Red Blood Cell Count 2.42 M/mm3 (4.30-5.90); White Blood Cell Count 5.65 K/mm3 (4.00-11.30)
--- NOTE | 2022-09-21 07:21 | NUR ---
SHIFT SUMMARY NOC PT A/O X 4 PLEASANT AND COOPERATIVE WITH CARE. PT STILL HAS SANDOSTATIN AND PROTONIX INFUSING CONTINUOUSLY. PT IJ SITE WAS BLEEDING AND CLEANED WITH DRESSING CHANGED. PT HGB WAS 7.1 THIS AM AND WAS PASSED ALONG TO DAY RN. PT HAS EGD SCHEDULED FOR TODAY. PT IS CURRENTLY RESTING WITH BED IN LOWEST POSITION AND CALL LIGHT WITHIN REACH.
--- NOTE | 2022-09-21 13:57 | NUR ---
09/21/22 1357 Radha Montemayor HISTORY, CHART, MEDICATIONS AND ALLERGIES REVIEWED BEFORE START OF PROCEDURE. PATIENT CONFIRMS NPO STATUS AND AGREES WITH SCHEDULED PROCEDURE. 3-LEAD EKG REVIEWED WITH PHYSICIAN PRIOR TO START OF PROCEDURE. MONITOR INTACT WITH CONTINUOUS PULSE OXIMETRY,CAPNOGRAPHY, 3-LEAD EKG, INTERMITTENT BP. SUPPLEMENTAL O2 TO BE TITRATED THROUGHOUT PROCEDURE TO MAINTAIN O2 SATURATION ABOVE 90%. PATIENT DETERMINED TO BE ASA APPROPRIATE FOR PROPOFOL SEDATION PRIOR TO START OF PROCEDURE BY DR. BROWN.
--- NOTE | 2022-09-21 18:05 | NUR ---
TELEPHONE ORDER RECEIVED FROM DR BROWN, PT CODE STATUS RETURNED TO FULL CODE. PT IN AGREEMENT.
--- NOTE | 2022-09-21 18:36 | NUR ---
SHIFT SUMMARY- PT IS A/O, PLESANT AND COOPERATIVE. HE WAS NPO THIS MORNING FOR A PROCEDURE. FAMILY WAS AT BEDSIDE MOST OF THIS SHIFT. RECIEVING PAIN MEDICATION NEEDED. HE WENT FOR HIS ENDO THIS AFTERNOON AND TOLORATED WELL. MEDICATIONS SWITCHED FROM IV TO ORAL. HIS BED IS IN THE LOW POSITION AND CALL LIGHT IS WITIN REACH.
--- NOTE | 2022-09-22 04:59 | NUR ---
SUMMARY: NO ACUTE EVENTS OVERNIGHT. PAIN MEDS GIVEN PER EMAR. PATIENT AOX4. VSS. PATIENT GIRLFRIEND AT BEDSIDE THROUGHOUT NIGHT. PATIENT ABLE TO MAKE NEEDS KNOWN. PATIENT ON REGULAR DIET TOLERATING WELL. CALL LIGHT IN REACH.
[2022-09-22 07:54] LABS: Hematocrit 23.1 % (37.0-53.0); Hemoglobin 7.5 g/dL (13.5-17.5); Mean Corpuscular HGB Conc 32.5 g/dL (31.5-36.5); Mean Corpuscular Volume 89 fL (80-100); Mean Platelet Volume 10.4 fL (9.1-12.4); Platelet Count 79 K/mm3 (150-400); RDW Coefficient Variation 15.9 % (11.7-14.2); RDW Standard Deviation 51.6 fL (35.1-46.3); Red Blood Cell Count 2.59 M/mm3 (4.30-5.90); White Blood Cell Count 5.98 K/mm3 (4.00-11.30)
--- NOTE | 2022-09-22 17:14 | NUR ---
PT DISCHARGED HOME. DC INSTRUCTIONS AND EDUCATION MATERIAL EXPLAINED TO PT AND SIGNIFICANT OTHER. PT STATED NO KNEW QUESTIONS OR CONCERNS. PT NOTIFIED THAT MEDICATIONS WHERE FAXED TO [facility]. ALL BELONGING SENT HOME WITH PT. CENTRAL LINE REMOVED BY SABIHA. PT TAKEN BY WHEELCHAIR TO WAITING VEHICLE.
== END 2022-09-22 16:42 | disposition home or self-care (01) | DRG 441 ==
LOC: ER 05:31 → ICUW 05:32 → MEDS 09-18 10:07 → ICUW 09-18 10:09 → MEDS 09-18 17:04
PROVIDERS: Internal Medicine; Internal Medicine Gastroenterology; Nurse Practitioner Acute Care; Student in an Organized Health Care Education/Training Program; ADMIT Internal Medicine
PROC: 30233N1 Transfusion of Nonautologous Red Blood Cells into Peripheral Vein, Percutaneous Approach (ICD-10-PCS; 2022-09-17)
PROC: 30233K1 Transfusion of Nonautologous Frozen Plasma into Peripheral Vein, Percutaneous Approach (ICD-10-PCS; 2022-09-17)
PROC: 30233R1 Transfusion of Nonautologous Platelets into Peripheral Vein, Percutaneous Approach (ICD-10-PCS; 2022-09-17)
PROC: 02HV33Z Insertion of Infusion Device into Superior Vena Cava, Percutaneous Approach (ICD-10-PCS; 2022-09-18)
PROC: B548ZZA Ultrasonography of Superior Vena Cava, Guidance (ICD-10-PCS; 2022-09-18)
PROC: 3E033XZ Introduction of Vasopressor into Peripheral Vein, Percutaneous Approach (ICD-10-PCS; 2022-09-18)
PROC: 0DJ08ZZ Inspection of Upper Intestinal Tract, Via Natural or Artificial Opening Endoscopic (ICD-10-PCS; principal; 2022-09-21 14:00)
DX: K76.6 Portal hypertension (principal); R57.8 Other shock; D62 Acute posthemorrhagic anemia; K92.2 Gastrointestinal hemorrhage, unspecified; E87.20 Acidosis, unspecified; I85.10 Secondary esophageal varices without bleeding; K92.0 Hematemesis; K22.10 Ulcer of esophagus without bleeding; N17.9 Acute kidney failure, unspecified; F10.239 Alcohol dependence with withdrawal, unspecified; Z51.5 Encounter for palliative care; Z66 Do not resuscitate; K31.89 Other diseases of stomach and duodenum; K70.30 Alcoholic cirrhosis of liver without ascites; B19.20 Unspecified viral hepatitis C without hepatic coma; F17.210 Nicotine dependence, cigarettes, uncomplicated; F11.10 Opioid abuse, uncomplicated; E87.6 Hypokalemia; E83.51 Hypocalcemia; R73.9 Hyperglycemia, unspecified; M24.812 Other specific joint derangements of left shoulder, not elsewhere classified; M24.811 Other specific joint derangements of right shoulder, not elsewhere classified; Z98.890 Other specified postprocedural states; Z79.899 Other long term (current) drug therapy
CPT/HCPCS: 36415; 36430; 71045; 80047; 80048; 80053; 80069; 80076; 82248; 82330; 83605; 83690; 83735; 85014; 85018; 85025; 85027; 85610; 85730; 86850; 86900; 86901; 86923; 96365; 96367; 96375; 96376; 99285-25; A9270; C1751; C9113; G0378; J0610; J0696; J1790; J2060; J2250; J2354; J2405; J2550; J2704; J2765; J3010; J3411; J7030; J7050; J7060; J7120; P9016; P9035; P9037; P9059

== ENCOUNTER 2022-09-27 11:32 | Inpatient (IN) | payer OTHER ==
[~2022-09-27] VITALS: Ht 170.2 cm; Wt 66.3 kg
[2022-09-27 12:37] LABS: BASOPHILS ABSOLUTE AUTO 0.05 K/mm3 (0.00-0.23); BASOPHILS PERCENT AUTO 1 % (0-2); EOSINOPHILS ABSOLUTE AUTO 0.07 K/mm3 (0.00-0.68); EOSINOPHILS PERCENT AUTO 1 % (0-6); IMMATURE GRAN ABSOLUTE AUTO 0.07 K/mm3 (0.00-0.10); IMMATURE GRAN PERCENT AUTO 1 % (0-1); LYMPHOCYTES ABSOLUTE AUTO 1.26 K/mm3 (0.84-5.20); LYMPHOCYTES PERCENT AUTO 13 % (21-46); MONOCYTES ABSOLUTE AUTO 0.82 K/mm3 (0.16-1.47); MONOCYTES PERCENT AUTO 9 % (4-13); Mean Corpuscular HGB 28.8 pg (26.0-34.0); Mean Corpuscular HGB Conc 32.1 g/dL (31.5-36.5); Mean Corpuscular Volume 90 fL (80-100); Mean Platelet Volume 9.4 fL (9.1-12.4); NEUTROPHILS ABSOLUTE AUTO 7.33 K/mm3 (1.96-9.15); NEUTROPHILS PERCENT AUTO 77 % (41-73); Platelet Count 297 K/mm3 (150-400); RDW Coefficient Variation 15.2 % (11.7-14.2); RDW Standard Deviation 48.5 fL (35.1-46.3); Red Blood Cell Count 1.46 M/mm3 (4.30-5.90)
[2022-09-27 12:45] LABS: Hematocrit 13.1 % (37.0-53.0); Hemoglobin 4.2 g/dL (13.5-17.5)
[2022-09-27 12:50] LABS: International Normalized Ratio 1.54; Prothrombin Time Results 15.7 Sec (9.7-11.5)
[2022-09-27 13:00] LABS: Alanine Aminotransfer (ALT/SGP 24 U/L (12-78); Albumin/Globulin Ratio 0.8 (0.8-1.8); Alk Phos 76 U/L (50-136); Anion Gap 10 mmol/L (6-16); Aspartate Aminotrans (AST/SGOT 34 U/L (12-37); Bilirubin, Direct 0.3 mg/dL (0.0-0.3); Bilirubin, Indirect 0.6 mg/dL (0.1-0.7); Bilirubin, Total 0.9 mg/dL (0.1-1.0); Blood Urea Nitrogen 48 mg/dL (8-24); Bun/Creatinine Ratio 33.8 (12.0-20.0); CO2, Blood 20 mmol/L (21-32); Calcium, Blood 7.6 mg/dL (8.5-10.1); Chloride, Blood 113 mmol/L (98-108); Creatinine, Blood 1.42 mg/dL (0.60-1.20); Ethanol (Alcohol), Blood, Med <3 mg/dL; Globulin, Blood 2.6 g/dL (2.2-4.0); Glomerular Filtration Rate 68 (60-); Glucose, Blood 170 mg/dL (70-99); Magnesium, Blood 1.9 mg/dL (1.6-2.4); Potassium, Blood 3.6 mmol/L (3.5-5.5); Sodium, Blood 143 mmol/L (136-145); Total Protein, Blood 4.6 g/dL (6.4-8.2)
[2022-09-27 15:20] LABS: Calcium, Ionized (POC) 0.97 mmol/L (1.10-1.46); Chloride (POC) 107 mmol/L (98-108); Creatinine (POC) 1.5 mg/dL (0.8-1.3); Glucose (ISTAT POC) 191 mg/dL (70-99); Hemoglobin (POC) 7.8 g/dL (13.5-17.5); Potassium (POC) 5.1 mmol/L (3.5-5.5); Sodium (POC) 139 mmol/L (135-148); Total CO2 (POC) 19 mmol/L (21-32)
--- NOTE | 2022-09-27 16:11 | NUR ---
09/27/22 1611 Radha Montemayor CASE COMPLETED IN OR 2; PT INTUBATED BY DR. SWENSON. SEE ANETHESIA RECORDS.
--- NOTE | 2022-09-27 18:08 | NUR ---
NURSING PCU ADMISSION/DAYSHIFT SUMMARY: Assumed care of pt at approx 1635. Arrived from day surgery post EGD accompanied by staff x1 and s/o. Xfer to unit bed using slider. Pt sleepy though arousable. Weak and needs assistance w/all adl's/repositioning. C/O 5-8/10 pain depending on pt's position, facial expressions relaxed. Pale, scattered scabs to BLE, no significant breakdown noted. Tele in place, NSR, no c/o CP/pressure, BP stable, no noted edema. L/S cta t/o, respirations even and unlabored, no noted cough. Abd distended and firm, BT+, c/o gas, dark red smear noted and reported to GI, voids w/o difficulty per pt. PIV x2, 4th unit of PRBC's infusing upon arrival as well as sandostatin. Pt resting comfortably at this time. GI at bedside for update regarding procedure, new d/o received. Octreotide dc'd, protonix gtt initiated, zofran scheduled Q6 for nausea prevention. 4th unit of PRBC's completed, pt tolerated well. Plan of care discussed with s/o, denied questions/needs. Call light in reach, monitor until rpt is given to NOC RN.
--- NOTE | 2022-09-27 20:57 | NUR ---
ASSUMPTION OF CARE THIS RN ASSUMED CARE OF PATIENT AT 1900. REPORT TAKEN FROM [facility] RN. PATIENT LETHARGIC BUT IS AROUSABLE WITH VERBAL STIMULI. BP STABLE. SR/ST ON MONITOR WITH HR 80-100'S. AFEBRILE. PULSES STRONG THROUGHOUT. DENIES N/V. WILL MEDICATE PER EMAR. PROTONIX GTT INFUSING PER EMAR. SCD'S IN PLACE. PATIENT ORIENTED FULLY. ABLE TO MAKE NEEDS KNOWN AND ANSWERING QUESTIONS APPROPRIATELY. QUICKLY FALLS BACK TO SLEEP. PATIENT REFUSING ORAL CARE AT THIS TIME, DESPITE DRY MOUTH, PATIENT STATING HE "IS SLEEPING". THIS RN WILL CONTINUE TO ATTEMPT ORAL CARE THROUGHOUT THE NIGHT AND EDUCATE PATIENT APPROPRIATE. BED IN LOWEST POSITION AND CALL LIGHT WITHIN REACH.
[2022-09-28 03:51] LABS: Base Excess Venous -2.4 mmol/L; Bicarbonate Venous 22.7 mmol/L (24.0-30.0); pH Blood Venous 7.41 (7.34-7.37)
[2022-09-28 03:52] LABS: Hematocrit 27.6 % (37.0-53.0); Hemoglobin 9.3 g/dL (13.5-17.5)
[2022-09-28 04:14] LABS: International Normalized Ratio 1.36
[2022-09-28 04:19] LABS: Albumin, Blood 2.1 g/dL (3.4-5.0); Albumin/Globulin Ratio 0.8 (0.8-1.8); Bilirubin, Total 1.4 mg/dL (0.1-1.0); Calcium, Blood 7.5 mg/dL (8.5-10.1); Creatinine, Blood 1.61 mg/dL (0.60-1.20); Globulin, Blood 2.5 g/dL (2.2-4.0); Magnesium, Blood 1.9 mg/dL (1.6-2.4); Potassium, Blood 4.3 mmol/L (3.5-5.5); Total Protein, Blood 4.6 g/dL (6.4-8.2)
--- NOTE | 2022-09-28 05:18 | NUR ---
SHIFT SUMMARY NO ACUTE CHANGES OVERNIGHT. MEDICATED PER EMAR FOR NAUSEA AND PAIN; SEE EMAR. NO EPISODES OF VOMITING. SMALL LIQUID STOOL WITH DARK/RED/BLACK COLORED STOOL. HGB UP TO 9.3 THIS AM. PATIENT DENIES DIZZINESS/SOB, CHEST PAIN/PRESSURE. ENDORSES ABDOMINAL PAIN THAT IS RELIEVED BY PRN FENTANYL. PATIENT ABLE TO TURN SELF IN BED WITH MINIMAL ASSISTANCE BUT CONTINUES TO APPEAR WEAK. PROTONIX GTT INFUSING PER EMAR. BS+. LS CLEAR T/O. ALERT AND ORIENTED FULLY. VANCE. CONTINENT OF B/B. ORAL CARE DONE. BED IN LOWEST POSITION AND CALL LIGHT WITHIN REACH. THIS RN WILL CONTINUE TO MONITOR UNTIL SHIFT CHANGE AT 0700.
--- NOTE | 2022-09-28 11:35 | NUR ---
Initial palliative care consult: Etienne is a 32 year old with a history of liver cirrhosis, Hep C, esophageal varices, multiple GI bleeds, portal HTN, esophageal erosions. He was recently discharged from the hospital last week when he was admitted for GI bleeding. He has made a DNR and placed on comfort care last week as he was bleeding profusely and no other interventions were available. He stabilized and ended up going home. He started rebleeding at home which prompted this admission. Etienne is currently in the PCU. He reports transient nausea and diffuse abd pain currently rating 3/10 which he reports is a tolerable level. He states his goal is to stop bleeding, be discharged so that he can go to the [facility] outpatient treatment program. He states he has family support from his mom, his girlfriend and some friends. Discussed his wishes for care and he confirms his full code status wishes after education re: resusitation given. Gently discussed disease trajectory with him. He reports he has multiple hospital admissions recently which will likely continue. He reports he has been sober since 09/13/22 and has not relapsed. He is hopeful to go to treatment. He denies any current needs during the visit. PC to continue to follow for symptom managment, and disease process education and advanced care planning.
--- NOTE | 2022-09-28 17:48 | NUR ---
SHIFT SUMMARY; ASSUMED CARE AT 0700. A/A/OX4, SLEPT NEARLY ENTIRE SHIFT EXCEPT FOR AMBULATING TO BATHROOM AND WAKES AND ASKS FOR PAIN MEDS. REPORTS ABD PAIN, CARAFATE STARTED AND PRN PHENERGAN VIA TELEPHONE ORDER FROM DR. BLUE. GIRLFRIEND AT BEDSIDE FOR SHIFT, REPOSITIONS SELF NEEDED, SCD'S IN PLACE. NO VOMITING OR GI BLEEDING. PROTONIX INFUSING AT 10ML/HR PER ORDERS, WILL CONTINUE TO MONITOR AND TREAT UNTIL CHANGE OF SHIFT.
[2022-09-29 04:09] LABS: Mean Corpuscular HGB 29.3 pg (26.0-34.0); Mean Corpuscular HGB Conc 33.3 g/dL (31.5-36.5); Mean Corpuscular Volume 88 fL (80-100); Mean Platelet Volume 9.2 fL (9.1-12.4); Platelet Count 164 K/mm3 (150-400); RDW Coefficient Variation 15.5 % (11.7-14.2); Red Blood Cell Count 2.73 M/mm3 (4.30-5.90); White Blood Cell Count 7.45 K/mm3 (4.00-11.30)
[2022-09-29 04:39] LABS: Magnesium, Blood 1.8 mg/dL (1.6-2.4); Percent Saturation 9.1 % (20.0-50.0)
[2022-09-29 04:41] LABS: Albumin, Blood 1.9 g/dL (3.4-5.0); Albumin/Globulin Ratio 0.7 (0.8-1.8); Bilirubin, Total 0.9 mg/dL (0.1-1.0); Bun/Creatinine Ratio 19.4 (12.0-20.0); Calcium, Blood 7.1 mg/dL (8.5-10.1); Creatinine, Blood 1.6 mg/dL (0.60-1.20); Globulin, Blood 2.6 g/dL (2.2-4.0); Potassium, Blood 3.7 mmol/L (3.5-5.5); Total Protein, Blood 4.5 g/dL (6.4-8.2)
--- NOTE | 2022-09-29 05:59 | NUR ---
SHIFT SUMMARY PATIENT IS ALERT AND ORIENTED X4. 02 SATS >95% ON RA, DENIES SOB. HR SR 60s, BP REMAINS STABLE. ONE SMALL BM THAT WAS BROWN WITH SOME BRIGHT RED. MEDICATED FOR ABDOMINAL PAIN PER EMAR. PATIENT DENIED N/V THIS SHIFT. PATIENT UP TO BATHROOM INDEPENDENT. CALL LIGHT IN REACH
--- NOTE | 2022-09-29 15:40 | NUR ---
PT STATED THAT DR BROWN CLEARED PT FOR DISCHARGE. THIS RN CONTACTED DR BROWN TO VERIFY IF PT WAS CLEARED FROM GI CARE. DR BROWN CONFIRMED PT IS CLEAR AND IS ABLE TO DISCHARGE. DR BLUE CONTACTED AND INFORMED. AWAITING DISCHARGE ORDERS.
--- NOTE | 2022-09-29 16:43 | NUR ---
DISCHARGE UPDATE DISCHARGE PACKET GONE OVER WITH PT AND PT FAMILY MEMBER AT 1637. PT ABLE TO DRESS SELF AND REFUSED USING WHEELCHAIR FOR DISCHARGE. PT BELONGINGS BAGGED UP BY PT AND FAMILY MEMBER, DISCHARGE PACKET AMONG PERSONAL BELONGINGS. PT DISCHARGED AT 1655.
== END 2022-09-29 17:07 | disposition home or self-care (01) | DRG 378 ==
LOC: ER 11:32 → PCU 14:44
PROVIDERS: Family Medicine; Internal Medicine Gastroenterology; Nurse Practitioner Acute Care; Student in an Organized Health Care Education/Training Program; ADMIT Internal Medicine
PROC: 0W3P8ZZ Control Bleeding in Gastrointestinal Tract, Via Natural or Artificial Opening Endoscopic (ICD-10-PCS; 2022-09-27)
PROC: 30233N1 Transfusion of Nonautologous Red Blood Cells into Peripheral Vein, Percutaneous Approach (ICD-10-PCS; principal; 2022-09-27 15:15)
DX: K25.0 Acute gastric ulcer with hemorrhage (principal); D62 Acute posthemorrhagic anemia; K76.6 Portal hypertension; N17.9 Acute kidney failure, unspecified; K31.89 Other diseases of stomach and duodenum; F17.210 Nicotine dependence, cigarettes, uncomplicated; K70.30 Alcoholic cirrhosis of liver without ascites; K22.11 Ulcer of esophagus with bleeding; I85.10 Secondary esophageal varices without bleeding; F10.20 Alcohol dependence, uncomplicated; B19.20 Unspecified viral hepatitis C without hepatic coma; Z98.890 Other specified postprocedural states; Z79.899 Other long term (current) drug therapy
CPT/HCPCS: 36415; 36430; 80047; 80048; 80053; 80076; 82330; 82728; 82803; 83540; 83550; 83690; 83735; 85014; 85018; 85025; 85027; 85610; 85730; 86850; 86900; 86901; 86923; 93005; 93010; 94760; 96365; 96366; 96368; 96375; 99285-25; A9270; C9113; G0480; J0171; J0330; J0696; J1430; J1790; J2354; J2405; J2550; J2704; J2916; J3010; J7030; J7050; P9016

== ENCOUNTER 2023-05-06 02:22 | Emergency (ER) | payer OTHER ==
[~2023-05-06] VITALS: Ht 172.7 cm; Wt 63.5 kg
[2023-05-06] MEDS ORDERED: SUBOXONE 12 MG1 EACH (02:33)
[2023-05-06 02:51] LABS: BASOPHILS ABSOLUTE AUTO 0.03 K/mm3 (0.00-0.23); BASOPHILS PERCENT AUTO 0 % (0-2); EOSINOPHILS ABSOLUTE AUTO 0.19 K/mm3 (0.00-0.68); EOSINOPHILS PERCENT AUTO 3 % (0-6); Hematocrit 26.9 % (37.0-53.0); Hemoglobin 9.1 g/dL (13.5-17.5); IMMATURE GRAN ABSOLUTE AUTO 0.01 K/mm3 (0.00-0.10); IMMATURE GRAN PERCENT AUTO 0 % (0-1); LYMPHOCYTES ABSOLUTE AUTO 2.34 K/mm3 (0.84-5.20); LYMPHOCYTES PERCENT AUTO 33 % (21-46); MONOCYTES ABSOLUTE AUTO 0.51 K/mm3 (0.16-1.47); MONOCYTES PERCENT AUTO 7 % (4-13); Mean Corpuscular HGB 25.3 pg (26.0-34.0); Mean Corpuscular HGB Conc 33.8 g/dL (31.5-36.5); Mean Corpuscular Volume 75 fL (80-100); Mean Platelet Volume 9.1 fL (9.1-12.4); NEUTROPHILS ABSOLUTE AUTO 3.94 K/mm3 (1.96-9.15); NEUTROPHILS PERCENT AUTO 56 % (41-73); Platelet Count 167 K/mm3 (150-400); RDW Coefficient Variation 18.8 % (11.7-14.2); RDW Standard Deviation 49.6 fL (35.1-46.3); White Blood Cell Count 7.02 K/mm3 (4.00-11.30)
[2023-05-06 03:08] LABS: Albumin, Blood 3.2 g/dL (3.4-5.0); Albumin/Globulin Ratio 0.9 (0.8-1.8); Bilirubin, Direct 0.2 mg/dL (0.0-0.3); Bilirubin, Indirect 0.1 mg/dL (0.1-0.7); Bilirubin, Total 0.3 mg/dL (0.1-1.0); Bun/Creatinine Ratio 29.8 (12.0-20.0); Calcium, Blood 7.7 mg/dL (8.5-10.1); Creatinine, Blood 0.74 mg/dL (0.60-1.20); Globulin, Blood 3.5 g/dL (2.2-4.0); Magnesium, Blood 2.1 mg/dL (1.6-2.4); Potassium, Blood 3.7 mmol/L (3.5-5.5); Total Protein, Blood 6.7 g/dL (6.4-8.2)
[2023-05-06 03:08] LABS: International Normalized Ratio 1.23; Prothrombin Time Results 12.8 Sec (9.7-11.5)
[2023-05-06 05:30] LABS: Calcium, Ionized (POC) 1.09 mmol/L (1.10-1.46); Chloride (POC) 107 mmol/L (98-108); Creatinine (POC) 0.9 mg/dL (0.8-1.3); Glucose (ISTAT POC) 119 mg/dL (70-99); Hemoglobin (POC) 9.2 g/dL (13.5-17.5); Potassium (POC) 4.2 mmol/L (3.5-5.5); Sodium (POC) 144 mmol/L (135-148); Total CO2 (POC) 22 mmol/L (21-32)
[2023-05-06 07:08] VITALS: BP 109/64
== END 2023-05-06 07:43 | disposition short-term general hospital (02) ==
LOC: ER 02:22
PROVIDERS: Student in an Organized Health Care Education/Training Program
DX: K92.0 Hematemesis (principal); D64.9 Anemia, unspecified; F17.210 Nicotine dependence, cigarettes, uncomplicated
CPT/HCPCS: 80047; 80048; 80076; 83735; 85014; 85025; 85610; 85730; 96365; 96375; 99285-25; C9113; J0696; J2270; J2354; J2405

== ENCOUNTER 2023-08-03 02:24 | Emergency (ER) | payer OTHER ==
[~2023-08-03] VITALS: Ht 172.7 cm; Wt 59.0 kg
[~2023-08-03 02:24] MED LIST changes: +SUBOXONE 12 MG1 EACH
[2023-08-03 02:48] LABS: BASOPHILS ABSOLUTE AUTO 0.04 K/mm3 (0.00-0.23); BASOPHILS PERCENT AUTO 1 % (0-2); EOSINOPHILS ABSOLUTE AUTO 0.23 K/mm3 (0.00-0.68); EOSINOPHILS PERCENT AUTO 4 % (0-6); Hematocrit 30.6 % (37.0-53.0); Hemoglobin 9.4 g/dL (13.5-17.5); IMMATURE GRAN ABSOLUTE AUTO 0.03 K/mm3 (0.00-0.10); IMMATURE GRAN PERCENT AUTO 1 % (0-1); LYMPHOCYTES ABSOLUTE AUTO 2.43 K/mm3 (0.84-5.20); LYMPHOCYTES PERCENT AUTO 37 % (21-46); MONOCYTES ABSOLUTE AUTO 0.69 K/mm3 (0.16-1.47); MONOCYTES PERCENT AUTO 11 % (4-13); Mean Corpuscular HGB 19.7 pg (26.0-34.0); Mean Corpuscular HGB Conc 30.7 g/dL (31.5-36.5); Mean Corpuscular Volume 64 fL (80-100); NEUTROPHILS PERCENT AUTO 48 % (41-73); NRBC ABSOLUTE 0.02 K/mm3 (0.00-0.02); NRBC Auto 0.3 /100 WBC (0.0-0.2); Platelet Count 134 K/mm3 (150-400); RDW Coefficient Variation 18.7 % (11.7-14.2); RDW Standard Deviation 42.5 fL (35.1-46.3); Red Blood Cell Count 4.77 M/mm3 (4.30-5.90); White Blood Cell Count 6.52 K/mm3 (4.00-11.30)
[2023-08-03 03:15] LABS: Albumin, Blood 3.8 g/dL (3.4-5.0); Albumin/Globulin Ratio 0.9 (0.8-1.8); Bilirubin, Total 0.6 mg/dL (0.1-1.0); Bun/Creatinine Ratio 20.5 (12.0-20.0); Calcium, Blood 8.4 mg/dL (8.5-10.1); Creatinine, Blood 0.78 mg/dL (0.60-1.20); Globulin, Blood 4.4 g/dL (2.2-4.0); Total Protein, Blood 8.2 g/dL (6.4-8.2)
[2023-08-03 03:43] LABS: International Normalized Ratio 1.17; Prothrombin Time Results 12.2 Sec (9.7-11.5)
[2023-08-03 03:55] LABS: U Amphetamine Screen Not Detected; U Barbituate Screen Not Detected; U Benzodiazapine Screen Not Detected; U Cocaine Screen Not Detected; U Methadone Screen Not Detected; U Methamphetamine Screen Not Detected; U Opiates Screen DETECTED
[2023-08-03 03:56] LABS: U Cannabinoids Screen DETECTED; U Oxycodone Screen Not Detected; U Phencyclidine Screen Not Detected
[2023-08-03] MEDS ORDERED: HYDRA50 PO (04:02)
[2023-08-03] MEDS ORDERED: BUPRENORPHIN-N1 EAC1 (04:03)
[2023-08-03] MEDS ORDERED: BUPRENORPHINE HC8 MG SL (04:04)
[2023-08-03] MEDS ORDERED: HYDHCL25 PO (04:06)
[2023-08-03] MEDS ORDERED: Protonix40 MG PO (04:12)
[2023-08-03 04:26] VITALS: BP 133/69
[2023-08-03 06:11] LABS: U Buprenorphine Screen DETECTED
== END 2023-08-03 04:20 | disposition home or self-care (01) ==
LOC: ER 02:24
PROVIDERS: Emergency Medicine
DX: R10.13 Epigastric pain (principal); F10.129 Alcohol abuse with intoxication, unspecified; Z79.899 Other long term (current) drug therapy; F17.210 Nicotine dependence, cigarettes, uncomplicated
CPT/HCPCS: 36415; 80053; 82140; 83605; 83690; 83735; 84484; 85025; 85610; 86850; 86900; 86901; 96365; 96366; 96368; 96375; 99284-25; A9270; C9113; J2270; J2354; J2405; J7050

== ENCOUNTER 2023-08-08 09:18 | Emergency (ER) | payer OTHER ==
[~2023-08-08] VITALS: Ht 172.7 cm; Wt 68.0 kg
[~2023-08-08 09:18] MED LIST changes: +BUPRENORPHIN-N1 EAC1; +HYDHCL25 PO; +HYDRA50 PO; +Protonix40 MG PO
[2023-08-08 10:00] LABS: BASOPHILS ABSOLUTE AUTO 0.03 K/mm3 (0.00-0.23); BASOPHILS PERCENT AUTO 1 % (0-2); EOSINOPHILS ABSOLUTE AUTO 0.31 K/mm3 (0.00-0.68); EOSINOPHILS PERCENT AUTO 6 % (0-6); Hematocrit 28.1 % (37.0-53.0); Hemoglobin 8.7 g/dL (13.5-17.5); IMMATURE GRAN ABSOLUTE AUTO 0.01 K/mm3 (0.00-0.10); IMMATURE GRAN PERCENT AUTO 0 % (0-1); LYMPHOCYTES ABSOLUTE AUTO 2.01 K/mm3 (0.84-5.20); LYMPHOCYTES PERCENT AUTO 36 % (21-46); MONOCYTES ABSOLUTE AUTO 0.41 K/mm3 (0.16-1.47); MONOCYTES PERCENT AUTO 7 % (4-13); Mean Corpuscular HGB 19.6 pg (26.0-34.0); Mean Corpuscular Volume 63 fL (80-100); NEUTROPHILS ABSOLUTE AUTO 2.84 K/mm3 (1.96-9.15); NEUTROPHILS PERCENT AUTO 51 % (41-73); Platelet Count 110 K/mm3 (150-400); RDW Coefficient Variation 19.2 % (11.7-14.2); RDW Standard Deviation 41.6 fL (35.1-46.3); Red Blood Cell Count 4.45 M/mm3 (4.30-5.90); White Blood Cell Count 5.61 K/mm3 (4.00-11.30)
[2023-08-08 10:17] LABS: International Normalized Ratio 1.27; Prothrombin Time Results 13.2 Sec (9.7-11.5)
[2023-08-08 10:29] LABS: Albumin, Blood 3.5 g/dL (3.4-5.0); Albumin/Globulin Ratio 0.8 (0.8-1.8); Bilirubin, Total 0.6 mg/dL (0.1-1.0); Bun/Creatinine Ratio 18.2 (12.0-20.0); Calcium, Blood 8.2 mg/dL (8.5-10.1); Creatinine, Blood 0.88 mg/dL (0.60-1.20); Globulin, Blood 4.2 g/dL (2.2-4.0); Potassium, Blood 3.2 mmol/L (3.5-5.5); Total Protein, Blood 7.7 g/dL (6.4-8.2)
[2023-08-08 11:57] VITALS: BP 123/87
== END 2023-08-08 12:16 | disposition home or self-care (01) ==
LOC: ER 09:18
PROVIDERS: Emergency Medicine
DX: F10.10 Alcohol abuse, uncomplicated (principal); Y90.8 Blood alcohol level of 240 mg/100 ml or more; F17.210 Nicotine dependence, cigarettes, uncomplicated
CPT/HCPCS: 80053; 82140; 83690; 85025; 85610; 85730; 93005; 93010; 96374; 99284-25; J2405; J7030

== ENCOUNTER 2023-08-15 09:04 | Emergency (ER) | payer OTHER ==
[~2023-08-15] VITALS: Ht 170.2 cm; Wt 63.5 kg
[2023-08-15 09:30] LABS: BASOPHILS ABSOLUTE AUTO 0.05 K/mm3 (0.00-0.23); BASOPHILS PERCENT AUTO 1 % (0-2); EOSINOPHILS ABSOLUTE AUTO 0.25 K/mm3 (0.00-0.68); EOSINOPHILS PERCENT AUTO 4 % (0-6); Hematocrit 29.8 % (37.0-53.0); Hemoglobin 9.2 g/dL (13.5-17.5); IMMATURE GRAN ABSOLUTE AUTO 0.01 K/mm3 (0.00-0.10); IMMATURE GRAN PERCENT AUTO 0 % (0-1); LYMPHOCYTES ABSOLUTE AUTO 2.62 K/mm3 (0.84-5.20); LYMPHOCYTES PERCENT AUTO 46 % (21-46); MONOCYTES ABSOLUTE AUTO 0.61 K/mm3 (0.16-1.47); MONOCYTES PERCENT AUTO 11 % (4-13); Mean Corpuscular HGB 19.5 pg (26.0-34.0); Mean Corpuscular HGB Conc 30.9 g/dL (31.5-36.5); Mean Corpuscular Volume 63 fL (80-100); NEUTROPHILS PERCENT AUTO 38 % (41-73); Platelet Count 130 K/mm3 (150-400); RDW Coefficient Variation 20.8 % (11.7-14.2); RDW Standard Deviation 45.3 fL (35.1-46.3); Red Blood Cell Count 4.71 M/mm3 (4.30-5.90); White Blood Cell Count 5.74 K/mm3 (4.00-11.30)
[2023-08-15 09:32] LABS: Source, Urine Clean Catch
[2023-08-15 09:34] LABS: Appearance, Urine Clear (Clear); Bilirubin, Urine Neg (Neg); Blood, Urine Neg (Neg); Color, Urine Yellow (P-Yellow); Glucose Qualitative, Urine Neg (Neg); Ketones, Urine Neg (Neg); Leukocyte Esterase, Urine Neg (Neg); Nitrite, Urine Neg (Neg); Protein, Urine Neg (Neg); Specific Gravity, Urine 1.015 (1.003-1.022); Urobilinogen, Urine 2+ (Normal); pH, Urine 6.5 (5.0-8.0)
[2023-08-15 09:59] LABS: Albumin, Blood 3.8 g/dL (3.4-5.0); Albumin/Globulin Ratio 0.9 (0.8-1.8); Bilirubin, Total 0.7 mg/dL (0.1-1.0); Bun/Creatinine Ratio 16.3 (12.0-20.0); Calcium, Blood 8.7 mg/dL (8.5-10.1); Creatinine, Blood 0.73 mg/dL (0.60-1.20); Globulin, Blood 4.1 g/dL (2.2-4.0); Potassium, Blood 3.4 mmol/L (3.5-5.5); Total Protein, Blood 7.9 g/dL (6.4-8.2)
[2023-08-15 12:07] LABS: Influenza A, PCR NEGATIVE (NEGATIVE); Influenza B, PCR NEGATIVE (NEGATIVE); Resp Syncytial Virus, PCR NEGATIVE (NEGATIVE); SARS-Cov-2 (COVID-19) PCR, MMC NEGATIVE (NEGATIVE)
[2023-08-15] MEDS ORDERED: Ondansetron HCl 2 MG / ML 2ML Vial IV ONE (12:35)
[2023-08-15] MEDS ORDERED: Pantoprazole Sodium 40 MG Injection IV ONE (12:35)
[2023-08-15] MEDS ORDERED: Mag Hydrox/AL Hydrox/Simeth 30 ML UDC PO ONE (12:35)
[2023-08-15] MEDS ORDERED: NS 1,000 ML IV SCH (13:25)
[2023-08-15 13:45] VITALS: BP 120/74
[2023-08-15] MEDS ORDERED: ONDA4ODT MM (14:09)
== END 2023-08-15 14:24 | disposition home or self-care (01) ==
LOC: ER 09:04
PROVIDERS: Student in an Organized Health Care Education/Training Program
DX: K70.10 Alcoholic hepatitis without ascites (principal); F10.229 Alcohol dependence with intoxication, unspecified; E86.0 Dehydration; E87.6 Hypokalemia; D64.9 Anemia, unspecified; I85.00 Esophageal varices without bleeding; Z79.899 Other long term (current) drug therapy
CPT/HCPCS: 0241U; 80053; 81003; 82140; 83690; 85025; 96374; 96375; 99284-25; A9270; C9113; J2405; J7030

== ENCOUNTER 2023-08-29 13:18 | Emergency (ER) | payer OTHER ==
[~2023-08-29] VITALS: Ht 172.7 cm; Wt 68.0 kg
[2023-08-29] MEDS ORDERED: LORazepam 2 MG/ML 1ML Injection IV ONE ×2 (13:40→14:15)
[2023-08-29 14:27] LABS: BASOPHILS ABSOLUTE AUTO 0.07 K/mm3 (0.00-0.23); BASOPHILS PERCENT AUTO 2 % (0-2); EOSINOPHILS ABSOLUTE AUTO 0.05 K/mm3 (0.00-0.68); EOSINOPHILS PERCENT AUTO 1 % (0-6); Hematocrit 33.3 % (37.0-53.0); Hemoglobin 10.5 g/dL (13.5-17.5); IMMATURE GRAN ABSOLUTE AUTO 0.01 K/mm3 (0.00-0.10); IMMATURE GRAN PERCENT AUTO 0 % (0-1); LYMPHOCYTES PERCENT AUTO 27 % (21-46); MONOCYTES ABSOLUTE AUTO 0.31 K/mm3 (0.16-1.47); MONOCYTES PERCENT AUTO 7 % (4-13); Mean Corpuscular HGB 19.7 pg (26.0-34.0); Mean Corpuscular HGB Conc 31.5 g/dL (31.5-36.5); Mean Corpuscular Volume 62 fL (80-100); NEUTROPHILS ABSOLUTE AUTO 3.01 K/mm3 (1.96-9.15); NEUTROPHILS PERCENT AUTO 63 % (41-73); Platelet Count 101 K/mm3 (150-400); RDW Coefficient Variation 22.6 % (11.7-14.2); RDW Standard Deviation 47.3 fL (35.1-46.3); Red Blood Cell Count 5.34 M/mm3 (4.30-5.90); White Blood Cell Count 4.75 K/mm3 (4.00-11.30)
[2023-08-29] MEDS ORDERED: LORazepam 2 MG/ML 1ML Injection IV PRN (14:35)
[2023-08-29] MEDS ORDERED: Lactated Ringer's 1,000 ML IV ONE (14:45)
[2023-08-29] MEDS ORDERED: Ondansetron HCl 2 MG / ML 2ML Vial IV ONE (14:50)
[2023-08-29 14:52] LABS: Albumin, Blood 4.1 g/dL (3.4-5.0); Albumin/Globulin Ratio 0.9 (0.8-1.8); Bilirubin, Total 1.3 mg/dL (0.1-1.0); Bun/Creatinine Ratio 12.2 (12.0-20.0); Creatinine, Blood 0.9 mg/dL (0.60-1.20); Globulin, Blood 4.7 g/dL (2.2-4.0); Potassium, Blood 3.4 mmol/L (3.5-5.5); Total Protein, Blood 8.8 g/dL (6.4-8.2)
[2023-08-29 15:43] LABS: U Amphetamine Screen Not Detected; U Barbituate Screen Not Detected; U Benzodiazapine Screen Not Detected; U Buprenorphine Screen DETECTED; U Cannabinoids Screen Not Detected; U Cocaine Screen Not Detected; U Methadone Screen Not Detected; U Methamphetamine Screen Not Detected; U Opiates Screen Not Detected; U Oxycodone Screen Not Detected; U Phencyclidine Screen Not Detected
[2023-08-29 17:15] VITALS: BP 121/84
== END 2023-08-29 18:01 | disposition home or self-care (01) ==
LOC: ER 13:18
PROVIDERS: Physician Assistant
DX: F10.239 Alcohol dependence with withdrawal, unspecified (principal); K70.30 Alcoholic cirrhosis of liver without ascites; E80.6 Other disorders of bilirubin metabolism
CPT/HCPCS: 80053; 83690; 85025; 96361; 96374; 96375; 99285-25; J2060; J2405; J7120

== ENCOUNTER 2023-10-13 23:00 | Emergency (ER) | payer OTHER ==
[~2023-10-13] VITALS: Ht 172.7 cm; Wt 63.5 kg
[2023-10-13 23:20] LABS: BASOPHILS ABSOLUTE AUTO 0.04 K/mm3 (0.00-0.23); BASOPHILS PERCENT AUTO 1 % (0-2); EOSINOPHILS ABSOLUTE AUTO 0.08 K/mm3 (0.00-0.68); EOSINOPHILS PERCENT AUTO 1 % (0-6); Hematocrit 31.5 % (37.0-53.0); Hemoglobin 10.1 g/dL (13.5-17.5); IMMATURE GRAN ABSOLUTE AUTO 0.02 K/mm3 (0.00-0.10); IMMATURE GRAN PERCENT AUTO 0 % (0-1); LYMPHOCYTES ABSOLUTE AUTO 1.97 K/mm3 (0.84-5.20); LYMPHOCYTES PERCENT AUTO 33 % (21-46); MONOCYTES PERCENT AUTO 7 % (4-13); Mean Corpuscular HGB 21.2 pg (26.0-34.0); Mean Corpuscular HGB Conc 32.1 g/dL (31.5-36.5); Mean Corpuscular Volume 66 fL (80-100); NEUTROPHILS ABSOLUTE AUTO 3.43 K/mm3 (1.96-9.15); NEUTROPHILS PERCENT AUTO 58 % (41-73); Platelet Count 96 K/mm3 (150-400); RDW Standard Deviation 50.8 fL (35.1-46.3); Red Blood Cell Count 4.77 M/mm3 (4.30-5.90); White Blood Cell Count 5.94 K/mm3 (4.00-11.30)
[2023-10-13 23:31] LABS: Bilirubin, Total 0.9 mg/dL (0.1-1.0); Bun/Creatinine Ratio 14.5 (12.0-20.0); Calcium, Blood 8.3 mg/dL (8.5-10.1); Creatinine, Blood 0.9 mg/dL (0.60-1.20); Globulin, Blood 4.2 g/dL (2.2-4.0); Potassium, Blood 3.7 mmol/L (3.5-5.5); Total Protein, Blood 8.2 g/dL (6.4-8.2)
[2023-10-13] MEDS ORDERED: Folic Acid 1 MG in NS 50 ML IV ONE (23:45)
[2023-10-13] MEDS ORDERED: Thiamine HCl 100 MG in NS 50 ML IV ONE (23:45)
[2023-10-13] MEDS ORDERED: Ondansetron HCl 2 MG / ML 2ML Vial IV ONE (23:50)
[2023-10-13] MEDS ORDERED: FentaNYL Citrate 50 MCG/ML 2 ML Injection IV ONE (23:50)
[2023-10-13] MEDS ORDERED: NS 1,000 ML IV SCH (23:50)
[2023-10-13] MEDS ORDERED: Pantoprazole Sodium 40 MG Injection IV ONE (23:50)
[2023-10-13 23:55] LABS: Magnesium, Blood 1.8 mg/dL (1.6-2.4)
[2023-10-14] MEDS ORDERED: Droperidol 5 mg/2 ml Vial IV ONE (00:55)
[2023-10-14] MEDS ORDERED: Lidocaine 2% Viscous Soln 15 ML UDC PO ONE (02:30)
[2023-10-14] MEDS ORDERED: Mag Hydrox/AL Hydrox/Simeth 30 ML UDC PO ONE (02:30)
[2023-10-14] MEDS ORDERED: Atropine/Scopalam/Hyoscam/PB 5 ML UDC PO ONE (02:30)
[2023-10-14 03:30] VITALS: BP 122/72
[2023-10-14] MEDS ORDERED: RX Prepack 2 Tabs Ondansetron ODT 4MG UD ONE (03:50)
[2023-10-20] MEDS ORDERED: CHLO25 PO (12:17)
== END 2023-10-14 04:05 | disposition home or self-care (01) ==
LOC: ER 23:00
PROVIDERS: Student in an Organized Health Care Education/Training Program
DX: R10.13 Epigastric pain (principal); R11.2 Nausea with vomiting, unspecified; Z79.899 Other long term (current) drug therapy; F17.210 Nicotine dependence, cigarettes, uncomplicated
CPT/HCPCS: 74177; 80053; 83690; 83735; 85025; 96365-59; 96368; 96375; 99284-25; A9270; C9113; J1790; J2405; J3010; J3411; J7030; Q9967

== ENCOUNTER 2023-10-30 16:01 | Emergency (ER) | payer OTHER ==
[~2023-10-30] VITALS: Ht 172.7 cm; Wt 68.0 kg
[2023-10-30 16:05] VITALS: BP 138/99
== END 2023-10-30 17:04 | disposition left against medical advice (07) ==
LOC: ER 16:01
DX: Z53.21 Procedure and treatment not carried out due to patient leaving prior to being seen by health care provider (principal)
CPT/HCPCS: 99281

== ENCOUNTER 2023-11-02 20:33 | Emergency (ER) | payer OTHER ==
[~2023-11-02] VITALS: Ht 172.7 cm; Wt 63.5 kg
[2023-11-02 21:12] LABS: BASOPHILS ABSOLUTE AUTO 0.07 K/mm3 (0.00-0.23); BASOPHILS PERCENT AUTO 1 % (0-2); EOSINOPHILS ABSOLUTE AUTO 0.11 K/mm3 (0.00-0.68); EOSINOPHILS PERCENT AUTO 2 % (0-6); Hematocrit 31.7 % (37.0-53.0); Hemoglobin 10.2 g/dL (13.5-17.5); IMMATURE GRAN ABSOLUTE AUTO 0.02 K/mm3 (0.00-0.10); IMMATURE GRAN PERCENT AUTO 0 % (0-1); LYMPHOCYTES ABSOLUTE AUTO 1.68 K/mm3 (0.84-5.20); LYMPHOCYTES PERCENT AUTO 34 % (21-46); MONOCYTES PERCENT AUTO 8 % (4-13); Mean Corpuscular HGB 21.9 pg (26.0-34.0); Mean Corpuscular HGB Conc 32.2 g/dL (31.5-36.5); Mean Corpuscular Volume 68 fL (80-100); NEUTROPHILS ABSOLUTE AUTO 2.64 K/mm3 (1.96-9.15); NEUTROPHILS PERCENT AUTO 54 % (41-73); Platelet Count 92 K/mm3 (150-400); RDW Standard Deviation 55.5 fL (35.1-46.3); Red Blood Cell Count 4.65 M/mm3 (4.30-5.90); White Blood Cell Count 4.92 K/mm3 (4.00-11.30)
[2023-11-02 21:34] LABS: Albumin, Blood 3.9 g/dL (3.4-5.0); Albumin/Globulin Ratio 0.8 (0.8-1.8); Bilirubin, Total 1.2 mg/dL (0.1-1.0); Bun/Creatinine Ratio 19.4 (12.0-20.0); Calcium, Blood 8.1 mg/dL (8.5-10.1); Creatinine, Blood 0.72 mg/dL (0.60-1.20); Globulin, Blood 4.6 g/dL (2.2-4.0); Potassium, Blood 3.3 mmol/L (3.5-5.5); Total Protein, Blood 8.5 g/dL (6.4-8.2)
[2023-11-02] MEDS ORDERED: CHLO25 PO (22:37)
[2023-11-02 22:45] VITALS: BP 132/86
== END 2023-11-02 22:50 | disposition home or self-care (01) ==
LOC: ER 20:33
PROVIDERS: Emergency Medicine
DX: F10.239 Alcohol dependence with withdrawal, unspecified (principal); R56.9 Unspecified convulsions; Z79.899 Other long term (current) drug therapy; F17.210 Nicotine dependence, cigarettes, uncomplicated
CPT/HCPCS: 80053; 85025; 93005; 93010; 99285-25

== ENCOUNTER 2023-11-03 08:29 | Emergency (ER) | payer OTHER ==
[~2023-11-03] VITALS: Ht 172.7 cm; Wt 63.5 kg
[2023-11-03] MEDS ORDERED: NS 1,000 ML IV SCH (09:10)
[2023-11-03] MEDS ORDERED: Acetaminophen 325 MG TABLET PO ONE (09:10)
[2023-11-03 09:19] LABS: BASOPHILS ABSOLUTE AUTO 0.07 K/mm3 (0.00-0.23); BASOPHILS PERCENT AUTO 2 % (0-2); EOSINOPHILS ABSOLUTE AUTO 0.08 K/mm3 (0.00-0.68); EOSINOPHILS PERCENT AUTO 2 % (0-6); Hemoglobin 10.2 g/dL (13.5-17.5); IMMATURE GRAN ABSOLUTE AUTO 0.01 K/mm3 (0.00-0.10); IMMATURE GRAN PERCENT AUTO 0 % (0-1); LYMPHOCYTES ABSOLUTE AUTO 1.36 K/mm3 (0.84-5.20); LYMPHOCYTES PERCENT AUTO 34 % (21-46); MONOCYTES ABSOLUTE AUTO 0.26 K/mm3 (0.16-1.47); MONOCYTES PERCENT AUTO 7 % (4-13); Mean Corpuscular HGB 21.8 pg (26.0-34.0); Mean Corpuscular HGB Conc 31.9 g/dL (31.5-36.5); Mean Corpuscular Volume 68 fL (80-100); NEUTROPHILS ABSOLUTE AUTO 2.21 K/mm3 (1.96-9.15); NEUTROPHILS PERCENT AUTO 55 % (41-73); Platelet Count 81 K/mm3 (150-400); RDW Coefficient Variation 22.9 % (11.7-14.2); Red Blood Cell Count 4.68 M/mm3 (4.30-5.90); White Blood Cell Count 3.99 K/mm3 (4.00-11.30)
[2023-11-03 09:32] LABS: Magnesium, Blood 2.2 mg/dL (1.6-2.4)
[2023-11-03 09:55] LABS: Albumin/Globulin Ratio 0.9 (0.8-1.8); Bilirubin, Total 1.3 mg/dL (0.1-1.0); Bun/Creatinine Ratio 20.3 (12.0-20.0); Calcium, Blood 8.2 mg/dL (8.5-10.1); Creatinine, Blood 0.69 mg/dL (0.60-1.20); Globulin, Blood 4.5 g/dL (2.2-4.0); Potassium, Blood 3.1 mmol/L (3.5-5.5); Total Protein, Blood 8.5 g/dL (6.4-8.2)
[2023-11-03] MEDS ORDERED: HyDROXyzine HCl 25 MG Tab PO ONE (10:00)
[2023-11-03] MEDS ORDERED: Thiamine HCl 100 MG Tab PO ONE (10:50)
[2023-11-03] MEDS ORDERED: Multivitamins 1 Tab PO ONE (10:50)
[2023-11-03] MEDS ORDERED: Folic Acid 1 MG TAB PO ONE (10:50)
[2023-11-03] MEDS ORDERED: Potassium Chloride 20 MEQ TabCR PO ONE (10:50)
[2023-11-03 10:56] VITALS: BP 134/92
== END 2023-11-03 11:11 | disposition home or self-care (01) ==
LOC: ER 08:29
PROVIDERS: Emergency Medicine
DX: F10.10 Alcohol abuse, uncomplicated (principal); S80.02XA Contusion of left knee, initial encounter; W19.XXXA Unspecified fall, initial encounter; E87.6 Hypokalemia; Z86.69 Personal history of other diseases of the nervous system and sense organs
CPT/HCPCS: 73562-LT; 80053; 83690; 83735; 85025; 96360; 99284-25; A9270; J7030

== ENCOUNTER 2023-11-08 04:25 | Inpatient (IN) | payer OTHER ==
[2023-11-08] VITALS (50 sets, daily range): BP systolic 96–156; BP diastolic 68–123
[~2023-11-08] VITALS: Ht 170.2 cm; Wt 66.7 kg
[2023-11-08 04:48] LABS: BASOPHILS ABSOLUTE AUTO 0.03 K/mm3 (0.00-0.23); BASOPHILS PERCENT AUTO 1 % (0-2); EOSINOPHILS ABSOLUTE AUTO 0.17 K/mm3 (0.00-0.68); EOSINOPHILS PERCENT AUTO 4 % (0-6); Hematocrit 28.2 % (37.0-53.0); Hemoglobin 8.5 g/dL (13.5-17.5); IMMATURE GRAN ABSOLUTE AUTO 0.02 K/mm3 (0.00-0.10); IMMATURE GRAN PERCENT AUTO 0 % (0-1); LYMPHOCYTES PERCENT AUTO 25 % (21-46); MONOCYTES ABSOLUTE AUTO 0.55 K/mm3 (0.16-1.47); MONOCYTES PERCENT AUTO 11 % (4-13); Mean Corpuscular HGB 22.2 pg (26.0-34.0); Mean Corpuscular HGB Conc 30.1 g/dL (31.5-36.5); Mean Corpuscular Volume 74 fL (80-100); NEUTROPHILS ABSOLUTE AUTO 2.93 K/mm3 (1.96-9.15); NEUTROPHILS PERCENT AUTO 60 % (41-73); Platelet Count 74 K/mm3 (150-400); RDW Coefficient Variation 22.8 % (11.7-14.2); RDW Standard Deviation 57.1 fL (35.1-46.3); Red Blood Cell Count 3.83 M/mm3 (4.30-5.90)
[2023-11-08 05:01] LABS: International Normalized Ratio 1.25; Prothrombin Time Results 13.2 Sec (9.7-11.5)
[2023-11-08] MEDS ORDERED: LORazepam 2 MG/ML 1ML Injection IV ONE ×3 (05:05→05:55)
[2023-11-08 05:09] LABS: Alanine Aminotransfer (ALT/SGP 111 U/L (12-78); Albumin, Blood 3.7 g/dL (3.4-5.0); Albumin/Globulin Ratio 0.9 (0.8-1.8); Alk Phos 169 U/L (50-136); Anion Gap 9 mmol/L (3-11); Aspartate Aminotrans (AST/SGOT 160 U/L (12-37); Bilirubin, Total 1.4 mg/dL (0.1-1.0); Blood Urea Nitrogen 17 mg/dL (8-24); Bun/Creatinine Ratio 24.7 (12.0-20.0); CO2, Blood 25 mmol/L (21-32); Calcium, Blood 9.3 mg/dL (8.5-10.1); Chloride, Blood 109 mmol/L (98-108); Creatinine, Blood 0.69 mg/dL (0.60-1.20); Ethanol (Alcohol), Blood, Med <3 mg/dL; Glomerular Filtration Rate 126 (60-); Glucose, Blood 101 mg/dL (70-99); Potassium, Blood 4.9 mmol/L (3.5-5.5); Sodium, Blood 138 mmol/L (136-145); Total Protein, Blood 7.7 g/dL (6.4-8.2)
[2023-11-08] MEDS ORDERED: NS 1,000 ML IV SCH (05:20)
[2023-11-08] MEDS ORDERED: LORazepam 2 MG/ML 1ML Injection IV PRN ×3 (05:55→06:00)
[2023-11-08] MEDS ORDERED: Acetaminophen 325 MG TABLET PO PRN (05:55)
[2023-11-08] MEDS ORDERED: HydrALAZINE HCl 20 MG / ML 1ML Vial IV PRN (06:00)
[2023-11-08] MEDS ORDERED: Lactated Ringer's 1,000 ML IV SCH (06:00)
[2023-11-08 07:23] LABS: Percent Saturation 6.5 % (20.0-50.0)
[2023-11-08] MEDS ORDERED: NS 250 ML IV PRN (07:50)
[2023-11-08] MEDS ORDERED: Thiamine HCl 100 MG in NS 50 ML IV SCH (09:00)
[2023-11-08] MEDS ORDERED: Folic Acid 1 MG in NS 50 ML IV SCH (09:00)
[2023-11-08] MEDS ORDERED: ONDA4 PO (09:03)
[2023-11-08] MEDS ORDERED: GABA300 PO (09:05)
[2023-11-08] MEDS ORDERED: HYDPAM50 PO (09:10)
[2023-11-08] MEDS ORDERED: MELATONIN 5 MG1 EACH PO (09:12)
[2023-11-08 10:55] LABS: Base Excess Venous -1.2 mmol/L; Bicarbonate Venous 23.4 mmol/L (24.0-30.0); PCO2 Venous 45 mmHg (38-42); pH Blood Venous 7.35 (7.34-7.37)
[2023-11-08] MEDS ORDERED: Iron Dextran 25 MG in NS 50 ML IV ONE (11:05)
[2023-11-08] MEDS ORDERED: Iron Dextran 975 MG in NS 250 ML IV ONE (12:30)
[2023-11-08] MEDS ORDERED: Ampicillin Sod/Sulbactam Sod 1.5 GM in NS 100 ML IV SCH (15:00)
--- NOTE | 2023-11-08 17:39 | NUR ---
SHIFT SUMMARY PATIENT PRECEDEX REMAINS OFF AT THIS TIME DUE TO DEEP SEDATION. ONLY REQUIRED MORNING DOSE OF ATIVAN. SLEPT THROUGHOUT SHIFT. ON 2LPM VIA NC WITH SPO2 MID TO HIGH 90'S. WHEN AWAKE THIS EVENING, PATIENT WAS CALM AND COOPERATIVE WITH CARE. NO TREMORS OR HALLUCINATIONS PRESENT. CONDOM CATH REMAINS IN PLACE WITH GOOD URINE OUTPUT. NO BM THIS SHIFT. PATIENT'S GIRLFRIEND AT BEDSIDE PERIODICALLY T/O SHIFT AND MOTHER VISITED ONCE. LR INF @ 75ML/HR. NO OTHER CHANGES THIS SHIFT.
[2023-11-09] VITALS (19 sets, daily range): BP systolic 123–157; BP diastolic 76–109
[2023-11-09 03:33] LABS: BASOPHILS ABSOLUTE AUTO 0.02 K/mm3 (0.00-0.23); BASOPHILS PERCENT AUTO 1 % (0-2); EOSINOPHILS ABSOLUTE AUTO 0.15 K/mm3 (0.00-0.68); EOSINOPHILS PERCENT AUTO 4 % (0-6); Hematocrit 28.1 % (37.0-53.0); Hemoglobin 8.8 g/dL (13.5-17.5); IMMATURE GRAN ABSOLUTE AUTO 0.01 K/mm3 (0.00-0.10); IMMATURE GRAN PERCENT AUTO 0 % (0-1); LYMPHOCYTES ABSOLUTE AUTO 0.89 K/mm3 (0.84-5.20); LYMPHOCYTES PERCENT AUTO 25 % (21-46); MONOCYTES ABSOLUTE AUTO 0.43 K/mm3 (0.16-1.47); MONOCYTES PERCENT AUTO 12 % (4-13); Mean Corpuscular HGB Conc 31.3 g/dL (31.5-36.5); Mean Corpuscular Volume 73 fL (80-100); NEUTROPHILS ABSOLUTE AUTO 2.13 K/mm3 (1.96-9.15); NEUTROPHILS PERCENT AUTO 59 % (41-73); Platelet Count 74 K/mm3 (150-400); RDW Coefficient Variation 22.9 % (11.7-14.2); Red Blood Cell Count 3.83 M/mm3 (4.30-5.90); White Blood Cell Count 3.63 K/mm3 (4.00-11.30)
[2023-11-09 03:54] LABS: Magnesium, Blood 1.9 mg/dL (1.6-2.4)
[2023-11-09 04:55] LABS: Albumin, Blood 3.7 g/dL (3.4-5.0); Bilirubin, Total 1.6 mg/dL (0.1-1.0); Bun/Creatinine Ratio 16.9 (12.0-20.0); Calcium, Blood 9.2 mg/dL (8.5-10.1); Creatinine, Blood 0.71 mg/dL (0.60-1.20); Globulin, Blood 3.8 g/dL (2.2-4.0); Potassium, Blood 4.2 mmol/L (3.5-5.5); Total Protein, Blood 7.5 g/dL (6.4-8.2)
--- NOTE | 2023-11-09 05:14 | NUR ---
SHIFT SUMMERY PT ADMITTED W/ETOH W/DRAWAL. PRECEDEX DRIP HAD TO BE RESTARTED FOR W/DRAWAL-SEE FLOWSHEET. PT HAS BEEN CONSISTANTLY ORIENTED TO SELF AND PLACE W/VARYING DEGREES OF WITHDRAWAL SYMPTOMS. HE HAS BEEN INCONTINENT OF URINE AT TIMES, CONTINENT AT OTHERS. HE HAS HAD VISUAL HALLUCINATIONS THROUGHOUT THE NIGHT. HE HAS BEEN COMPLIANT W/CARE DESPITE CONFUSION. HE HAS BEEN SR ON THE CARDIAC MONTIOR. BP WNL. OXYGEN >90% ON 2L NC W/NO S/S OF RESP DISTRESS. HE HAS BEEN AFEBRILE.
--- NOTE | 2023-11-09 08:12 | NUR ---
Assumed care of pt at 0700. Bedside report received from Angela NICOLE. Pt A&O x 2. States "October" and "2023" for current date. Follows directions. Bed alarm on. Large incontinent void of urine noted. Bedbath and linen change complete. SpO2 90% or greater with room air - NC in place for capnography. ETCO2 35.
--- NOTE | 2023-11-09 08:22 | NUR ---
Dr Gill in to see patient. Plan of care discussed. No new orders at this time.
--- NOTE | 2023-11-09 17:24 | NUR ---
TRANSFER TO PCU: PT WAS TRANSFERRED FROM ICU TO PCU-11 AT APPROX 1700 VIA WHEELCHAIR. REPORT FROM BELKIS RN, THIS RN ASSUMED CARE. PT LETHARGIC BUT WAKES EASILY TO VERBAL STIMULI. ABLE TO ANSWER ALL ORIENTATION QUESTIONS APPROPRIATELY. CIWA 6. PT CONTINUES TO DEMONSTRATE SOME VISUAL AND AUDITORY HALLUCINATIONS BUT IS ABLE TO REORIENT. VSS, RR 10. RESPIRATIONS SHALLOW, UNLABORED. BLEEDING TO MOUTH NOTED, SUCTION AT BEDSIDE. PT ORIENTED TO ROOM/UNIT/CALL LIGHT. GIRLFRIEND AT BEDSIDE. PT REQUESTING TO REST IN BED AT THIS TIME. NO OTHER NEEDS, CALL LIGHT IN REACH.
[2023-11-10 03:15] VITALS: BP 141/94
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
[2023-11-10] MEDS ORDERED: Haloperidol Lactate Inj. 5 MG/ML Injection IM PRN (05:00)
[2023-11-10] MEDS ORDERED: Haloperidol Lactate Inj. 5 MG/ML Injection IM ONE (05:00)
--- NOTE | 2023-11-10 05:20 | NUR ---
SHIFT SUMMARY PATIENT ALERT, ORIENTED TO SELF AND SIGNIFICANT OTHER ONLY. PATIENT CONTINUING TO HAVE WITHDRAWAL SYMPTOMS. SEE WITHDRAWAL ASSESSMENTS. MEDICATED PER EMAR FOR WITHDRAWAL SYMPTOMS. PATIENT IMPULSIVE, BED ALARM ON FOR SAFETY. SEE PREVIOUS NOTE. PATIENT ON RA WITH SPO2 >90%. TELE READING SR 80-90s. BP STABLE. PATIENT AMBULATING INTO BATHROOM WITH ASSISTANCE OF STAFF. NO OTHER CHANGES, WILL REPORT TO DAY SHIFT RN.
[2023-11-10] MEDS ORDERED: DiphenhydrAMINE HCl 50 MG/ML 1ML Vial IV ONE (06:35)
--- NOTE | 2023-11-10 06:51 | NUR ---
UPDATE PATIENT SET OFF BED ALARM, REMOVING TELE, AND PUTTING ON SHOES. PATIENT STATES THAT HIS RIDE IS HERE AND HE IS LEAVING. PATIENT EASILIY REDIRECTED BUT IS VERY CONFUSED AND CONTINUES TO HAVE AUDITORY AND VISUAL HALLUCINATIONS. PATIENT ITCHING SKIN WHILE THIS RN IN ROOM. CALL PLACED TO HOSPITALIST REGARDING PATIENT CIWA AND SYMPTOMS. OT ORDER OF BENADRYL ORDERED. SEE UPDATED EMAR.
[2023-11-10 07:41] VITALS: BP 149/101
[2023-11-10] MEDS ORDERED: ChlordiazePOXIDE 25 MG Cap PO PRN ×4 (08:15→09:55)
--- NOTE | 2023-11-10 10:27 | NUR ---
AM NOTE: THIS RN ASSUMED CARE OF PT AT APPROX 0700. PT ALERT, ABLE TO ANSWER ALL ORIENTATION QUESTIONS APPROPRIATELY. ANXIOUS, VOICING DESIRE TO LEAVE HOSPITAL TO GO HOME. VISUAL AND AUDITORY HALLUCINATIONS OBSERVED BY THIS RN. PT ABLE TO BE REDIRECTED BY STAFF. PLEASANT & COOPERATIVE W/ CARE BEING PROVIDED. CIWA 12 AT START OF SHIFT BUT IS DECREASED TO 2 AT THIS TIME. LOW ENVIRONMENTAL STIMULI. PT IS RESTING IN BED W/ FAMILY MEMBERS AT THE BEDSIDE. VSS. HR 90'S, SINUS ON TELE. SBP 140'S, DENIES CHEST PAIN/PRESSURE. SPO2 >88% ON RA-2L NC. RESPIRATIONS REMAIN SHALLOW. PT UP TO BATHROOM SEVERAL TIMES THIS AM TO VOID W/ SBA FOR LINE MANAGEMENT. NO OTHER NEEDS AT THIS TIME. CALL LIGHT IN REACH, BED ALARM ON FOR PT SAFETY.
[2023-11-10 11:17] VITALS: BP 118/90
[2023-11-10 15:38] VITALS: BP 126/77
--- NOTE | 2023-11-10 17:01 | NUR ---
END OF SHIFT NOTE: NO ACUTE EVENTS THIS SHIFT. PT SLEPT FOR MAJORITY OF THE DAY. CIWA'S 3-12, MEDICATED PER EMAR. ABLE TO ANSWER ALL ORIENTATION QUESTIONS APPROPRIATELY. VISUAL AND AUDITORY HALLUCINATIONS THIS AM. VSS. HR 70-90'S, SINUS ON TELE. SBP 110-140'S. SPO2 >88% ON RA-2L NC. RESPIRATONS SHALLOW. PT UP TO BATHROOM T/O THE DAY W/ SBA. REPOSITIONING INDEPENDENTLY. MULTIPLE VISITORS THIS SHIFT. PT HAS BEEN COOPERATIVE W/ ALL CARE PROVIDED & REMAINS REDIRECTABLE. NO OTHER NEEDS AT THIS TIME. CALL LIGHT IN REACH, BED ALARM REMAINS ON FOR PT SAFETY.
[2023-11-10 19:30] VITALS: BP 137/79
--- NOTE | 2023-11-10 21:58 | NUR ---
ASSUMPTION OF CARE THIS RN ASSUMED CARE OF PT AT 1900, REPORT FROM BONNIE MADISON. PT LETHARGIC AT THIS TIME BUT DOES RESPOND TO VERBAL STIMULI. SPEECH IS MUMBLED BUT PT IS ANSWERING QUESTIONS, BUT QUICKLY FALLS BACK TO SLEEP. VSS; PT ON RA SPO2 92%. CIWA 3 AT THIS TIME. PT DENIES CP/PRESSURE, SOB, DIZZINESS, N/V, GENERAL PAIN. PT AWOKE AROUND 2100, ASKING FOR DINNER TRAY AND WATER. PT ORIENTED X3, PLEASANT AND COOPERATIVE WITH CARE. CIWA 8; 25 MG LIBRIUM ADMINISTERED. PT ATE 100% OF MEAL TRAY. PT DENIES ISSUES GI/. BED ALARM ON, CALL LIGHT IN REACH.
[2023-11-11] VITALS: BP 138/87
[2023-11-11 03:57] LABS: Hematocrit 30.3 % (37.0-53.0); Hemoglobin 9.7 g/dL (13.5-17.5); Mean Corpuscular HGB 22.8 pg (26.0-34.0); Mean Corpuscular Volume 71 fL (80-100); Platelet Count 102 K/mm3 (150-400); RDW Coefficient Variation 24.1 % (11.7-14.2); RDW Standard Deviation 60.4 fL (35.1-46.3); Red Blood Cell Count 4.25 M/mm3 (4.30-5.90); White Blood Cell Count 3.32 K/mm3 (4.00-11.30)
[2023-11-11 04:00] VITALS: BP 109/59; BP 145/94
[2023-11-11 04:16] LABS: Albumin, Blood 3.6 g/dL (3.4-5.0); Anion Gap 9 mmol/L (3-11); Blood Urea Nitrogen 12 mg/dL (8-24); Bun/Creatinine Ratio 12.6 (12.0-20.0); CO2, Blood 26 mmol/L (21-32); Calcium, Blood 9.3 mg/dL (8.5-10.1); Chloride, Blood 107 mmol/L (98-108); Creatinine, Blood 0.96 mg/dL (0.60-1.20); Glomerular Filtration Rate 108 (60-); Glucose, Blood 119 mg/dL (70-99); Phosphorus, Blood 4.3 mg/dL (2.5-4.9); Potassium, Blood 4.1 mmol/L (3.5-5.5); Sodium, Blood 138 mmol/L (136-145)
--- NOTE | 2023-11-11 05:58 | NUR ---
SHIFT SUMMARY PT A&O X3-4; MENTATION IS IMPROVING AND CLEARING COMPARED TO PREVIOUS. PT CALM AND COOPERATIVE WITH CARE. CIWA 3 - 10; MEDICATION PER MAR. PT WITH ONLY ONE EPISODE OF VISUAL AND AUDITORY HALLUCINATION, BUT PT ABLE TO BE REDIRECTED AND PT ABLE TO IDENTIFY IT WAS NOT REAL. PT DID NOT TRY TO GET OUT OF BED THIS SHIFT, WAS ABLE TO USE CALL LIGHT APPROPRIATELY TO MAKE NEEDS KNOWN. VSS; 130 - 140'S, SR WITH RATE IN 90'S, AFEBRILE, RA WITH SPO2 90 - 97%. PT MILDLY ANXIOUS AND AGITATED AT TIMES BUT PT'S S.O WAS ABLE TO COME IN TO VISIT FOR A SHORT TIME WHICH HELPED RELIEVE ANXIETY. PT STATES HE IS "JUST READY TO GO HOME". PT TOLERATING PO INTAKE. USING RESTROOM AND AMBULATING SBA/INDEPENDENT TO RESTROOM; PT TOLERATING WELL. NO REPORTS OF GI/ ISSUES OR CONCERNS. PT CURRENTLY RESTING. CALL LIGHT IN REACH, WILL UPDATE ONCOMING RN.
[2023-11-11 07:48] VITALS: BP 131/73
[2023-11-11] MEDS ORDERED: Nicotine 14 MG PATCH TOP SCH (09:00)
--- NOTE | 2023-11-11 09:38 | NUR ---
AM NOTE: THIS RN ASSUMED CARE OF PT AT APPROX 0700. PT ALERT, ABLE TO ANSWER ALL ORIENTATION QUESTIONS APPROPRIATELY. PLEASANT & COOPERATIVE W/ CARE BEING PROVIDED. CIWA 4 AT START OF SHIFT, PT IS RESTING IN BED AT THIS TIME. LOW ENVIRONMENTAL STIMULI MAINTAINED. VSS. HR 90'S, SINUS ON TELE. SBP 130'S, DENIES CHEST PAIN/PRESSURE. SPO2 >95% ON RA. RESPIRATIONS EVEN & UNLABORED. PT UP TO CHAIR FOR BREAKFAST, ABLE TO EAT 100% OF PUREE MEAL. NO OTHER NEEDS AT THIS TIME. CALL LIGHT IN REACH, BED ALARM ON FOR PT SAFETY.
[2023-11-11 11:48] VITALS: BP 139/92
[2023-11-11] MEDS ORDERED: Amoxicillin 500 MG Cap PO SCH (14:00)
[2023-11-11] MEDS ORDERED: Nicotine 14 MG PATCH TOP ONE (14:55)
[2023-11-11 15:47] VITALS: BP 125/79
--- NOTE | 2023-11-11 16:48 | NUR ---
END OF SHIFT NOTE: NO ACUTE EVENTS THIS SHIFT. PT ALERT, ORIENTED X4. ABLE TO CALL APPROPRIATELY & COMMUNICATE NEEDS W/ STAFF. CIWA'S 1-4. VSS. HR 70-90'S, NO TELE PER ORDERS. SBP 120-1300'S. SPO2 >90% ON RA. RESPIRATONS EVEN & UNLABORED. PT UP TO BATHROOM T/O THE DAY W/ SBA. REPOSITIONING INDEPENDENTLY. MULTIPLE VISITORS THIS SHIFT PT HAS BEEN COOPERATIVE W/ ALL CARE PROVIDED. NO OTHER NEEDS AT THIS TIME. MEDICAL W/ TELE STATUS. CALL LIGHT IN REACH, BED ALARM REMAINS ON FOR PT SAFETY.
[2023-11-11 19:30] VITALS: BP 146/93
[2023-11-11] MEDS ORDERED: buprenorphine HCL 2 MG TAB.SUBL SL SCH (21:00)
[2023-11-12 04:00] VITALS: BP 130/87
--- NOTE | 2023-11-12 05:59 | NUR ---
SHIFT SUMMARY PT A&O X4, PLEASANT AND COOPERATIVE. VSS; SBP 125 - 146, SR WITH RATE IN 80 - 90'S, AFEBRILE, SPO2 GREATER THAN 95% ON RA. CIWA 0 FOR THIS SHIFT. PT'S BUPRENORPHINE RESTARTED THIS SHIFT AT 2100. PT AND THIS RN NOTED PT MAY BE STARTING TO WITHDRAWAL FROM THIS, HE "WAS ITCHING" AND MINIALLY "ANTSY". OTHERWISE PT HAD UNEVENTFUL EVENING AND SLEPT WELL THROUGHOUT THE SHIFT. PT USING RESTROOM AND AMBULATING INDEPENDENT/SBA FOR CORD MANAGEMENT. PT REPORTS HAVING A BM THIS SHIFT THAT WAS WNL. PT SHOWERED THIS AM. CALL LIGHT IN REACH AND WILL UPDATE ONCOMING RN
[2023-11-12 07:33] VITALS: BP 131/91
[2023-11-12] MEDS ORDERED: Thiamine HCl 100 MG Tab PO SCH (09:00)
[2023-11-12] MEDS ORDERED: Multivitamins 1 Tab PO SCH (09:00)
[2023-11-12] MEDS ORDERED: Cholecalciferol 1000 Unit Tablet (=25MCG) PO SCH (09:00)
--- NOTE | 2023-11-12 10:03 | NUR ---
PT BECOMING INCREASINGLY AGITATED, STATES THAT HE IS UNWILLING TO WAIT FOR DISCHARGE ORDERS TO COME THROUGH AND NEEDS TO LEAVE IMMEDIATELY AMA TO ATTEND TO SOME AFFAIRS BEFORE GOING TO [place]. ALTERNATIVE EDUCATION TEACHER SPOKE WITH PT AND PT AGREED TO WAIT FOR DC ORDERS. IV REMOVED, PT APPEARS CALM. AWAITING DC ORDERS.
[2023-11-12] MEDS ORDERED: ONE DAILY MUL400 MCG PO (10:16)
--- NOTE | 2023-11-12 10:44 | NUR ---
PT AWAITED DISCHARGE ORDERS. WAS GIVEN WRITTEN AND VERBAL DISCHARGE ORDERS AND PRESCRIPTIONS FAXED TO PREFERRED PHARMACY. PT LEFT FACILITY INDEPENDENTLY, WALKING. PT WAS ALERT AND ORIENTED X4 AND AMBULATING INDEPENDENTLY IN ROOM THIS MORNING AND ABLE TO TAKE A SHOWER. IV REMOVED FROM RIGHT WRIST, WRAPPED WITH COBAN. VITAL SIGNS STABLE DURING MORNING.
== END 2023-11-12 10:26 | disposition home or self-care (01) | DRG 897 ==
LOC: ER 04:25 → ICUE 05:54 → PCU 05:54 → ICUE 06:20 → PCU 11-09 17:26
PROVIDERS: Emergency Medicine; Internal Medicine; Student in an Organized Health Care Education/Training Program; ADMIT Student in an Organized Health Care Education/Training Program
PROC: HZ2ZZZZ Detoxification Services for Substance Abuse Treatment (ICD-10-PCS; principal; 2023-11-08)
DX: F10.232 Alcohol dependence with withdrawal with perceptual disturbance (principal); K76.6 Portal hypertension; I85.10 Secondary esophageal varices without bleeding; K04.7 Periapical abscess without sinus; K70.30 Alcoholic cirrhosis of liver without ascites; D64.9 Anemia, unspecified; E86.0 Dehydration; K31.89 Other diseases of stomach and duodenum; Z86.19 Personal history of other infectious and parasitic diseases
CPT/HCPCS: 36415; 80053; 80069; 82728; 82803; 83540; 83550; 83605; 83690; 83735; 85025; 85027; 85610; 85730; 94760; 96374; 99285-25; A9270; J0295; J1200; J1630; J1750; J2060; J3411; J7030; J7050; J7120

== ENCOUNTER 2024-02-19 11:38 | Day surgery (SDC) | payer OTHER ==
[~2024-02-19] VITALS: Ht 170.2 cm; Wt 65.6 kg
[~2024-02-19 11:38] MED LIST changes: +GABA300 PO; +HYDPAM50 PO; +Lactated Ringer's 1,000 ML IV ONE; +MELATONIN 5 MG1 EACH PO; +ONDA4 PO; +ONE DAILY MUL400 MCG PO; +propofoL 50 ML IV ONE
[2024-02-19] MEDS ORDERED: Lactated Ringer's 1,000 ML IV ONE (12:11)
[2024-02-19] MEDS ORDERED: propofoL 0 ML IV ONE (12:28)
[2024-02-19 13:11] VITALS: BP 116/66
[2024-02-21] MEDS ORDERED: CIPR500 PO (01:13)
== END 2024-02-19 13:17 | disposition home or self-care (01) ==
LOC: ORSCSDS 11:38
PROVIDERS: Specialist
PROC: 0DB68ZX Excision of Stomach, Via Natural or Artificial Opening Endoscopic, Diagnostic (ICD-10-PCS; principal; 2024-02-19 13:15)
DX: K74.60 Unspecified cirrhosis of liver (principal); I85.00 Esophageal varices without bleeding; K22.10 Ulcer of esophagus without bleeding; K44.9 Diaphragmatic hernia without obstruction or gangrene; B19.20 Unspecified viral hepatitis C without hepatic coma; Z87.19 Personal history of other diseases of the digestive system; F41.9 Anxiety disorder, unspecified; F32.A Depression, unspecified; F17.210 Nicotine dependence, cigarettes, uncomplicated; Z79.899 Other long term (current) drug therapy
CPT/HCPCS: 88305; 88342; J2704; J7120

== ENCOUNTER 2024-03-23 02:36 | Emergency (ER) | payer OTHER ==
[~2024-03-23] VITALS: Ht 170.2 cm; Wt 65.8 kg
[~2024-03-23 02:36] MED LIST changes: -Lactated Ringer's 1,000 ML IV ONE; -propofoL 50 ML IV ONE
[2024-03-23] MEDS ORDERED: Ketorolac Tromethamine 30mg Vial IV ONE (04:30)
[2024-03-23 07:08] VITALS: BP 126/75
== END 2024-03-23 07:09 | disposition home or self-care (01) ==
LOC: ER 02:36
DX: S00.83XA Contusion of other part of head, initial encounter (principal); S09.92XA Unspecified injury of nose, initial encounter; R10.11 Right upper quadrant pain; R10.12 Left upper quadrant pain; R07.81 Pleurodynia; F17.210 Nicotine dependence, cigarettes, uncomplicated; Y04.8XXA Assault by other bodily force, initial encounter; Z79.899 Other long term (current) drug therapy
CPT/HCPCS: 70450; 71260; 74177; 96374-59; 99284-25; J1885; Q9967

== ENCOUNTER 2024-04-15 23:08 | Emergency (ER) | payer OTHER ==
[~2024-04-15] VITALS: Ht 167.6 cm; Wt 68.0 kg
[2024-04-15 23:18] VITALS: BP 120/87
== END 2024-04-15 23:26 | disposition home or self-care (01) ==
LOC: ER 23:08
DX: F32.A Depression, unspecified (principal); F10.129 Alcohol abuse with intoxication, unspecified; F17.210 Nicotine dependence, cigarettes, uncomplicated; Z79.899 Other long term (current) drug therapy
CPT/HCPCS: 99284

== ENCOUNTER 2024-04-16 13:36 | Emergency (ER) | payer OTHER ==
[~2024-04-16] VITALS: Ht 167.6 cm; Wt 63.5 kg
[2024-04-16] MEDS ORDERED: Ondansetron HCl 2 MG / ML 2ML Vial IV ONE ×2 (13:55→22:25)
[2024-04-16 14:23] LABS: BASOPHILS ABSOLUTE AUTO 0.01 K/mm3 (0.00-0.23); BASOPHILS PERCENT AUTO 0 % (0-2); EOSINOPHILS ABSOLUTE AUTO 0.08 K/mm3 (0.00-0.68); EOSINOPHILS PERCENT AUTO 3 % (0-6); Hematocrit 39.8 % (37.0-53.0); Hemoglobin 14.4 g/dL (13.5-17.5); IMMATURE GRAN ABSOLUTE AUTO 0.01 K/mm3 (0.00-0.10); IMMATURE GRAN PERCENT AUTO 0 % (0-1); LYMPHOCYTES ABSOLUTE AUTO 1.15 K/mm3 (0.84-5.20); LYMPHOCYTES PERCENT AUTO 35 % (21-46); MONOCYTES ABSOLUTE AUTO 0.21 K/mm3 (0.16-1.47); MONOCYTES PERCENT AUTO 6 % (4-13); Mean Corpuscular HGB 31.2 pg (26.0-34.0); Mean Corpuscular HGB Conc 36.2 g/dL (31.5-36.5); Mean Corpuscular Volume 86 fL (80-100); Mean Platelet Volume 10.6 fL (9.1-12.4); NEUTROPHILS PERCENT AUTO 55 % (41-73); Platelet Count 52 K/mm3 (150-400); RDW Coefficient Variation 15.7 % (11.7-14.2); RDW Standard Deviation 49.8 fL (35.1-46.3); Red Blood Cell Count 4.61 M/mm3 (4.30-5.90); White Blood Cell Count 3.26 K/mm3 (4.00-11.30)
[2024-04-16 14:43] LABS: Albumin, Blood 3.4 g/dL (3.4-5.0); Albumin/Globulin Ratio 0.8 (0.8-1.8); Bilirubin, Total 1.1 mg/dL (0.1-1.0); Bun/Creatinine Ratio 16.2 (12.0-20.0); Calcium, Blood 8.7 mg/dL (8.5-10.1); Creatinine, Blood 0.68 mg/dL (0.60-1.20); Magnesium, Blood 1.7 mg/dL (1.6-2.4); Potassium, Blood 3.3 mmol/L (3.5-5.5); Total Protein, Blood 7.4 g/dL (6.4-8.2)
[2024-04-16] MEDS ORDERED: Ketorolac Tromethamine 15mg Vial IV ONE (22:25)
[2024-04-16] MEDS ORDERED: Lactated Ringer's 1,000 ML IV ONE (22:25)
[2024-04-16 23:24] LABS: International Normalized Ratio 1.23
[2024-04-16 23:38] LABS: Influenza A, PCR NEGATIVE (NEGATIVE); Influenza B, PCR NEGATIVE (NEGATIVE); Resp Syncytial Virus, PCR NEGATIVE (NEGATIVE); SARS-Cov-2 (COVID-19) PCR, MMC NEGATIVE (NEGATIVE)
[2024-04-17] MEDS ORDERED: ONDA4ODT MM (00:31)
[2024-04-17 00:45] VITALS: BP 117/74
== END 2024-04-17 00:54 | disposition home or self-care (01) ==
LOC: ER 13:36
PROVIDERS: Physician Assistant; Student in an Organized Health Care Education/Training Program
DX: R10.11 Right upper quadrant pain (principal); K70.30 Alcoholic cirrhosis of liver without ascites; R74.01 Elevation of levels of liver transaminase levels; M70.71 Other bursitis of hip, right hip; D69.6 Thrombocytopenia, unspecified; I10 Essential (primary) hypertension; G40.909 Epilepsy, unspecified, not intractable, without status epilepticus; F17.210 Nicotine dependence, cigarettes, uncomplicated; Z79.899 Other long term (current) drug therapy
CPT/HCPCS: 0241U; 74177; 76705; 80053; 82140; 83690; 83735; 84484; 85025; 85610; 85730; 93005; 93010; 96361; 96374-59; 96375; 99284-25; J1885; J2405; J7120; Q9967

== ENCOUNTER 2024-04-22 02:16 | Emergency (ER) | payer OTHER ==
[~2024-04-22] VITALS: Ht 167.6 cm; Wt 65.8 kg
[2024-04-22 02:46] VITALS: BP 131/90
[2024-04-22] MEDS ORDERED: ChlordiazePOXIDE 25 MG Cap PO ONE (03:05)
[2024-04-22] MEDS ORDERED: CHLO25 PO (04:31)
== END 2024-04-22 04:38 | disposition home or self-care (01) ==
LOC: ER 02:16
DX: G47.00 Insomnia, unspecified (principal); F17.210 Nicotine dependence, cigarettes, uncomplicated; Z79.899 Other long term (current) drug therapy
CPT/HCPCS: 99282; A9270

== ENCOUNTER 2024-05-18 16:15 | Emergency (ER) | payer OTHER ==
[~2024-05-18] VITALS: Ht 170.2 cm; Wt 63.5 kg
[2024-05-18 16:31] VITALS: BP 122/92
== END 2024-05-18 20:35 | disposition home or self-care (01) ==
LOC: ER 16:15
DX: S69.91XA Unspecified injury of right wrist, hand and finger(s), initial encounter (principal); K70.30 Alcoholic cirrhosis of liver without ascites; G40.909 Epilepsy, unspecified, not intractable, without status epilepticus; F17.210 Nicotine dependence, cigarettes, uncomplicated; Z79.899 Other long term (current) drug therapy; W23.1XXA Caught, crushed, jammed, or pinched between stationary objects, initial encounter; Y93.11 Activity, swimming
CPT/HCPCS: 73140; 99283-25

== ENCOUNTER 2024-07-10 15:52 | Emergency (ER) | payer OTHER ==
[~2024-07-10] VITALS: Ht 172.7 cm; Wt 65.8 kg
[2024-07-10 16:46] VITALS: BP 131/81
[2024-07-10 17:37] LABS: CORONAVIRUS COVID-19 AG Negative (NEGATIVE); INFLUENZA A AG Negative (NEGATIVE); INFLUENZA B AG Negative (NEGATIVE)
== END 2024-07-10 17:50 | disposition home or self-care (01) ==
LOC: ER 15:52
PROVIDERS: Physician Assistant
DX: R07.9 Chest pain, unspecified (principal); R05.9 Cough, unspecified; Z53.29 Procedure and treatment not carried out because of patient's decision for other reasons
CPT/HCPCS: 71046; 87428-QW; 99282-25

== ENCOUNTER 2024-07-30 17:58 | Emergency (ER) | payer OTHER ==
[~2024-07-30] VITALS: Ht 170.2 cm; Wt 63.5 kg
[2024-07-30 18:27] LABS: BASOPHILS ABSOLUTE AUTO 0.02 K/mm3 (0.00-0.23); BASOPHILS PERCENT AUTO 0 % (0-2); EOSINOPHILS ABSOLUTE AUTO 0.12 K/mm3 (0.00-0.68); EOSINOPHILS PERCENT AUTO 3 % (0-6); Hematocrit 42.1 % (37.0-53.0); Hemoglobin 15.4 g/dL (13.5-17.5); IMMATURE GRAN ABSOLUTE AUTO 0.01 K/mm3 (0.00-0.10); IMMATURE GRAN PERCENT AUTO 0 % (0-1); LYMPHOCYTES ABSOLUTE AUTO 1.65 K/mm3 (0.84-5.20); LYMPHOCYTES PERCENT AUTO 36 % (21-46); MONOCYTES ABSOLUTE AUTO 0.54 K/mm3 (0.16-1.47); MONOCYTES PERCENT AUTO 12 % (4-13); Mean Corpuscular HGB 31.2 pg (26.0-34.0); Mean Corpuscular HGB Conc 36.6 g/dL (31.5-36.5); Mean Corpuscular Volume 85 fL (80-100); Mean Platelet Volume 9.4 fL (9.1-12.4); NEUTROPHILS ABSOLUTE AUTO 2.19 K/mm3 (1.96-9.15); NEUTROPHILS PERCENT AUTO 49 % (41-73); Platelet Count 77 K/mm3 (150-400); RDW Coefficient Variation 15.3 % (11.7-14.2); RDW Standard Deviation 47.4 fL (35.1-46.3); Red Blood Cell Count 4.94 M/mm3 (4.30-5.90); White Blood Cell Count 4.53 K/mm3 (4.00-11.30)
[2024-07-30] MEDS ORDERED: Pantoprazole Sodium 40 MG Injection IV ONE (18:50)
[2024-07-30] MEDS ORDERED: Ondansetron HCl 2 MG / ML 2ML Vial IV ONE (19:10)
[2024-07-30 19:14] LABS: Albumin, Blood 3.9 g/dL (3.4-5.0); Albumin/Globulin Ratio 0.9 (0.8-1.8); Bilirubin, Total 1.7 mg/dL (0.1-1.0); Bun/Creatinine Ratio 12.3 (12.0-20.0); Calcium, Blood 8.5 mg/dL (8.5-10.1); Creatinine, Blood 0.65 mg/dL (0.60-1.20); Globulin, Blood 4.2 g/dL (2.2-4.0); Potassium, Blood 3.6 mmol/L (3.5-5.5); Total Protein, Blood 8.1 g/dL (6.4-8.2)
[2024-07-30 19:33] LABS: CORONAVIRUS COVID-19 AG Negative (NEGATIVE); INFLUENZA A AG Negative (NEGATIVE); INFLUENZA B AG Negative (NEGATIVE)
[2024-07-30 19:51] LABS: International Normalized Ratio 1.24; Prothrombin Time Results 13.1 Sec (9.7-11.5)
[2024-07-30 22:30] VITALS: BP 112/65
[2024-07-30] MEDS ORDERED: CHLO25 PO (22:54)
[2024-07-30] MEDS ORDERED: OMEP20ER PO (22:54)
== END 2024-07-30 23:00 | disposition home or self-care (01) ==
LOC: ER 17:58
PROVIDERS: Emergency Medicine
DX: K29.21 Alcoholic gastritis with bleeding (principal); K85.20 Alcohol induced acute pancreatitis without necrosis or infection; K70.10 Alcoholic hepatitis without ascites; F10.129 Alcohol abuse with intoxication, unspecified
CPT/HCPCS: 80053; 80320; 83690; 85025; 85610; 85730; 87428-QW; 96374; 96375; 99284-25; J2405; J2470

== ENCOUNTER 2024-08-25 21:22 | Emergency (ER) | payer OTHER ==
[~2024-08-25] VITALS: Ht 172.7 cm; Wt 65.8 kg
[~2024-08-25 21:22] MED LIST changes: +OMEP20ER PO
[2024-08-25 21:27] VITALS: BP 123/76
[2024-08-25] MEDS ORDERED: Ibuprofen 600 MG Tab PO ONE (22:20)
== END 2024-08-25 23:07 | disposition home or self-care (01) ==
LOC: ER 21:22
DX: S00.03XA Contusion of scalp, initial encounter (principal); W18.30XA Fall on same level, unspecified, initial encounter; F10.129 Alcohol abuse with intoxication, unspecified; K76.6 Portal hypertension; Z79.3 Long term (current) use of hormonal contraceptives; Z79.891 Long term (current) use of opiate analgesic; Z79.899 Other long term (current) drug therapy; Z79.83 Long term (current) use of bisphosphonates
CPT/HCPCS: 70450; 72125; 99284-25; A9270

== ENCOUNTER 2024-08-28 00:11 | Emergency (ER) | payer OTHER ==
[~2024-08-28] VITALS: Ht 170.2 cm; Wt 63.5 kg
[2024-08-28] MEDS ORDERED: DiphenhydrAMINE HCl 50 MG/ML 1ML Vial IV ONE (01:05)
[2024-08-28] MEDS ORDERED: NS 1,000 ML IV SCH (01:05)
[2024-08-28 01:53] LABS: BASOPHILS ABSOLUTE AUTO 0.04 K/mm3 (0.00-0.23); BASOPHILS PERCENT AUTO 1 % (0-2); EOSINOPHILS ABSOLUTE AUTO 0.11 K/mm3 (0.00-0.68); EOSINOPHILS PERCENT AUTO 2 % (0-6); Hemoglobin 14.7 g/dL (13.5-17.5); IMMATURE GRAN ABSOLUTE AUTO 0.01 K/mm3 (0.00-0.10); IMMATURE GRAN PERCENT AUTO 0 % (0-1); LYMPHOCYTES ABSOLUTE AUTO 1.71 K/mm3 (0.84-5.20); LYMPHOCYTES PERCENT AUTO 30 % (21-46); MONOCYTES ABSOLUTE AUTO 0.39 K/mm3 (0.16-1.47); MONOCYTES PERCENT AUTO 7 % (4-13); Mean Corpuscular HGB 31.7 pg (26.0-34.0); Mean Corpuscular HGB Conc 36.8 g/dL (31.5-36.5); Mean Corpuscular Volume 86 fL (80-100); Mean Platelet Volume 9.7 fL (9.1-12.4); NEUTROPHILS ABSOLUTE AUTO 3.47 K/mm3 (1.96-9.15); NEUTROPHILS PERCENT AUTO 61 % (41-73); Platelet Count 101 K/mm3 (150-400); RDW Coefficient Variation 14.6 % (11.7-14.2); RDW Standard Deviation 46.6 fL (35.1-46.3); Red Blood Cell Count 4.64 M/mm3 (4.30-5.90); White Blood Cell Count 5.73 K/mm3 (4.00-11.30)
[2024-08-28 02:09] LABS: International Normalized Ratio 1.21; Prothrombin Time Results 12.8 Sec (9.7-11.5)
[2024-08-28 02:35] LABS: Bilirubin, Total 1.2 mg/dL (0.1-1.0); Bun/Creatinine Ratio 15.3 (12.0-20.0); Calcium, Blood 8.5 mg/dL (8.5-10.1); Creatinine, Blood 0.66 mg/dL (0.60-1.20); Globulin, Blood 3.9 g/dL (2.2-4.0); Potassium, Blood 3.4 mmol/L (3.5-5.5); Total Protein, Blood 7.9 g/dL (6.4-8.2)
[2024-08-28 07:42] VITALS: BP 128/86
== END 2024-08-28 09:02 | disposition home or self-care (01) ==
LOC: ER 00:11
PROVIDERS: Emergency Medicine
DX: F10.129 Alcohol abuse with intoxication, unspecified (principal); F17.210 Nicotine dependence, cigarettes, uncomplicated; Z79.899 Other long term (current) drug therapy
CPT/HCPCS: 80053; 80320; 84484; 85025; 85610; 85730; 93005; 93010; 99284-25; J1200; J7030

== ENCOUNTER 2025-02-28 16:06 | Emergency (ER) | payer OTHER ==
[~2025-02-28] VITALS: Ht 170.2 cm; Wt 70.3 kg
[2025-02-28 16:18] VITALS: BP 140/79
[2025-02-28] MEDS ORDERED: NS 1,000 ML IV SCH (17:15)
== END 2025-02-28 18:30 | disposition left against medical advice (07) ==
LOC: ER 16:06
DX: M25.532 Pain in left wrist (principal); Z79.899 Other long term (current) drug therapy; F17.210 Nicotine dependence, cigarettes, uncomplicated; Z53.29 Procedure and treatment not carried out because of patient's decision for other reasons; X50.0XXA Overexertion from strenuous movement or load, initial encounter
CPT/HCPCS: 73090; 99283-25

== ENCOUNTER 2025-03-08 15:34 | Emergency (ER) | payer OTHER ==
[~2025-03-08] VITALS: Ht 170.2 cm; Wt 68.0 kg
[2025-03-08] MEDS ORDERED: Ketorolac Tromethamine 15mg Vial IV PRN (16:50)
[2025-03-08 16:52] LABS: BASOPHILS ABSOLUTE AUTO 0.02 K/mm3 (0.00-0.23); BASOPHILS PERCENT AUTO 1 % (0-2); EOSINOPHILS ABSOLUTE AUTO 0.14 K/mm3 (0.00-0.68); EOSINOPHILS PERCENT AUTO 3 % (0-6); Hematocrit 42.1 % (37.0-53.0); Hemoglobin 15.2 g/dL (13.5-17.5); IMMATURE GRAN ABSOLUTE AUTO 0.01 K/mm3 (0.00-0.10); IMMATURE GRAN PERCENT AUTO 0 % (0-1); LYMPHOCYTES ABSOLUTE AUTO 1.14 K/mm3 (0.84-5.20); LYMPHOCYTES PERCENT AUTO 26 % (21-46); MONOCYTES ABSOLUTE AUTO 0.35 K/mm3 (0.16-1.47); MONOCYTES PERCENT AUTO 8 % (4-13); Mean Corpuscular HGB Conc 36.1 g/dL (31.5-36.5); Mean Corpuscular Volume 87 fL (80-100); NEUTROPHILS ABSOLUTE AUTO 2.69 K/mm3 (1.96-9.15); NEUTROPHILS PERCENT AUTO 62 % (41-73); NRBC ABSOLUTE 0.00 K/mm3 (0.00-0.02); NRBC Auto 0.0 /100 WBC (0.0-0.2); Platelet Count 109 K/mm3 (150-400); RDW Coefficient Variation 14.9 % (11.7-14.2); RDW Standard Deviation 47.3 fL (35.1-46.3)
[2025-03-08 17:15] LABS: Alanine Aminotransfer (ALT/SGP 95.0 U/L (12-78); Albumin, Blood 3.6 g/dL (3.4-5.0); Albumin/Globulin Ratio 1.0 (0.8-1.8); Anion Gap 8.0 mmol/L (3-11); Aspartate Aminotrans (AST/SGOT 128.0 U/L (12-37); Bilirubin, Total 1.0 mg/dL (0.1-1.0); Blood Urea Nitrogen 13.0 mg/dL (8-24); CO2, Blood 27.0 mmol/L (21-32); Calcium, Blood 8.6 mg/dL (8.5-10.1); Chloride, Blood 114.0 mmol/L (98-108); Creatinine, Blood 0.69 mg/dL (0.60-1.20); Ethanol (Alcohol), Blood, Med 405.0 mg/dL; Globulin, Blood 3.7 g/dL (2.2-4.0); Glucose, Blood 123.0 mg/dL (70-99); Potassium, Blood 3.7 mmol/L (3.5-5.5); Sodium, Blood 145.0 mmol/L (136-145); Total Protein, Blood 7.3 g/dL (6.4-8.2)
[2025-03-08 17:36] VITALS: BP 125/83
[2025-03-08 17:41] LABS: U Amphetamine Screen Not Detected; U Barbituate Screen Not Detected; U Benzodiazapine Screen Not Detected; U Buprenorphine Screen DETECTED; U Cannabinoids Screen Not Detected; U Cocaine Screen Not Detected; U Methadone Screen Not Detected; U Methamphetamine Screen Not Detected; U Opiates Screen Not Detected; U Oxycodone Screen Not Detected; U Phencyclidine Screen Not Detected
== END 2025-03-08 18:05 | disposition left against medical advice (07) ==
LOC: ER 15:34
PROVIDERS: Registered Nurse
DX: R56.9 Unspecified convulsions (principal); F10.90 Alcohol use, unspecified, uncomplicated; F17.210 Nicotine dependence, cigarettes, uncomplicated; Z79.899 Other long term (current) drug therapy
CPT/HCPCS: 70450; 80053; 80320; 85025; 93005; 93010; J1885